=== PATIENT | male | born 1945 | race Caucasian/White ===

== ENCOUNTER 2020-04-10 07:41 | Day surgery (SDC) | payer MEDICARE, SELFPAY ==
[2020-04-06 12:31] VITALS: BMI 26.0
--- NOTE | 2020-04-08 09:16 | P.CONAN_ITS ---
Documented by User: Dee Fleming 04/08/20 09:18 HPI - Anesthesia Eval Consult details Narrative: 75yo M for Upper Endoscopy and Colonoscopy [facility] Past Medical History Medical History Barretts esophagus GERD (gastroesophageal reflux disease) History of ETOH abuse Hyperlipidemia Hypertension Surgical History Surgical History History of esophagogastroduodenoscopy (EGD) History of left inguinal hernia repair History of umbilical hernia repair History of vasectomy Hx of colonoscopy Social History Social History Smoking Status: Former smoker Use of substances other than those prescribed or required for medical reasons: No Advance Directives: No Advance Directives Information Provided: No Advance Directives on File: No Meds Allergies Allergy/AdvReac Type Severity Reaction Status Date / Time No Known Allergies Allergy Verified 04/10/20 07:49 Home Medications Medication Instructions Recorded Confirmed Type aspirin [Aspir-81] 81 mg PO DAILY 04/06/20 04/06/20 History cholecalciferol (vitamin D3) 25 mcg PO DAILY 04/06/20 04/06/20 History [Vitamin D3] garlic 1,000 mg PO DAILY 04/06/20 04/06/20 History lisinopril 1 tab PO DAILY 04/06/20 04/06/20 History eeiivolmqkmm-ayorsyim-jwklil 1 tab PO DAILY 04/06/20 04/06/20 History [Centrum Silver] omega 5-tfa-ote-fish oil [Fish Oil] 1 cap PO DAILY 04/06/20 04/06/20 History pravastatin 1 tab PO BEDTIME 04/06/20 04/06/20 History Exam Exam Date and Time: April 08, 2020 0916 Height,Weight and Vital Signs: Height 5 ft 8.5 in Weight 78.925 kg Pertinent Lab Results Pertinent Lab Results: Laboratory Tests 05/13/19 11/20/19 06:06 12:02 WBC 6.2 Hgb 14.7 Hct 44.1 Plt Count 198 Sodium 139 Potassium 4.5 Chloride 105 BUN 21 H Creatinine 1.39 Assessment and Plan Assessment Anesthesia Assessment: Chart Reviewed Documented by User: Tracy Meier 04/10/20 08:43 [facility] Past Medical History Medical History Barretts esophagus GERD (gastroesophageal reflux disease) History of ETOH abuse Hyperlipidemia Hypertension Family History Family history of problems with anesthesia: No Surgical History Surgical History History of esophagogastroduodenoscopy (EGD) History of left inguinal hernia repair History of umbilical hernia repair History of vasectomy Hx of colonoscopy History of Problems with Anesthesia: No Social History Social History Smoking Status: Former smoker Use of substances other than those prescribed or required for medical reasons: No Advance Directives: No Advance Directives Information Provided: No Advance Directives on File: No Meds Allergies Allergy/AdvReac Type Severity Reaction Status Date / Time No Known Allergies Allergy Verified 04/10/20 07:49 Home Medications Medication Instructions Recorded Confirmed Type aspirin [Aspir-81] 81 mg PO DAILY 04/06/20 04/06/20 History cholecalciferol (vitamin D3) 25 mcg PO DAILY 04/06/20 04/06/20 History [Vitamin D3] garlic 1,000 mg PO DAILY 04/06/20 04/06/20 History lisinopril 1 tab PO DAILY 04/06/20 04/06/20 History ametaucencbx-idwelnds-zwdjch 1 tab PO DAILY 04/06/20 04/06/20 History [Centrum Silver] omega 0-gcb-daw-fish oil [Fish Oil] 1 cap PO DAILY 04/06/20 04/06/20 History pravastatin 1 tab PO BEDTIME 04/06/20 04/06/20 History Exam Height,Weight and Vital Signs: Vital Signs Temp Pulse Resp BP Pulse Ox 04/10/20 07:59 97.8 F 63 16 158/73 H 96 Airway Mallampati Class: II TM Dist: >3cm Neck ROM: Full Loose/Missing/Broken Teeth: Yes (Edentulous) Heart: Rr Lungs: CTAB. Diminished. Assessment and Plan Assessment Anesthesia Assessment: Anesthesia Plan Discussed and Chart Reviewed Final Anesthetic Review NPO: Yes ASA Class: II Final Preanesthetic Review: No Changes in Pt Med Stat, Meds/Allgs Chart Rev iewed, Consent Obtained/Reviewed and Anes Risks/Benef Reviewed Patient Risk: Low Procedure Risk: Low Anesthetic Plan Anesthetic Plan: MAC: Disposition: Standard PACU
[2020-04-10 07:59] VITALS: BP 158/73; PULSE 63; RESP 16; TEMP 36.6; O2SAT 96
[2020-04-10] MEDS: Lactated Ringers 1,000 ML 100 ML IVCONT (08:11)
[2020-04-10 09:36] VITALS: BP 134/63; PULSE 55; RESP 18; TEMP 36.2; O2SAT 97
--- NOTE | 2020-04-10 09:40 | PM.OP ---
Brief Operative Note Date of Service: 04/10/20 Pre-op diagnosis: Garner's esophagus, Screening Post-op diagnosis: other (Same, Hiatal hernia, Diverticulosis, Internal hemorrhoids) Procedure: EGD with biopsies, Colonoscopy to the cecum Surgeon: Deandre Sanchez Anesthesia: MAC Estimated blood loss (mL): 2.0 Pathology: other (A. EG Junction at 34cm) Condition: stable Disposition: PACU
[2020-04-10 09:51] VITALS: BP 132/63; PULSE 62; RESP 18; O2SAT 97
--- NOTE | 2020-04-10 10:59 | OP_ITS ---
SURGEON: Deandre Sanchez MD INDICATIONS: The patient presents for evaluation of gastroesophageal reflux, Garner's esophagus, personal history of tubular adenoma of the colon, and colorectal cancer screening. Full consent obtained from him for both procedures, including risks of bleeding and perforation. PREOPERATIVE DIAGNOSIS: Gastroesophageal reflux, Garner's esophagus, personal history of tubular adenoma of the colon, and colorectal cancer screening. POSTOPERATIVE DIAGNOSIS: Gastroesophageal reflux, Garner's esophagus, personal history of tubular adenoma of the colon, and colorectal cancer screening, hiatal hernia, diverticulosis, nonbleeding cecal angiodysplasia, and internal hemorrhoids. PROCEDURE PERFORMED: Esophagogastroduodenoscopy with biopsies, and colonoscopy to the cecum. ESTIMATED BLOOD LOSS: COMPLICATIONS: ANESTHESIA: Monitored anesthesia care. ASSISTANTS: SPECIMENS: DESCRIPTION OF PROCEDURE: The patient was placed in the left lateral decubitus position. The Olympus video gastroscope was passed into the posterior oropharynx and upper esophagus under direct vision. The scope was passed slowly into the distal esophagus. The gastroesophageal junction appeared at 34 cm. At this level were small, less than 1 cm, areas of probable Garner's mucosa. There was no esophagitis nor any lesions. The scope entered into the stomach. There was a small to moderate-sized hiatal hernia. The scope was advanced to pylorus and duodenum cannulated to the descending portion. The duodenum including the bulb appeared normal without mass or ulceration. The scope was withdrawn back in the stomach. The gastric antrum and body appeared normal with good peristalsis. The scope was retroflexed visualizing the proximal stomach carefully, which appeared normal, without any sign of mass or ulceration. The scope was straightened and withdrawn back into the esophagus. Biopsies were obtained at 34 cm at the EG junction from the areas of presumed Garner's mucosa. Proximal to this, the esophageal mucosa appeared normal. The scope was withdrawn from the patient. He was turned around for colonoscopy. The digital rectal exam revealed no abnormalities. The Olympus video pediatric colonoscope was entered into the rectum, advanced to the cecum with the assistance of abdominal wall pressure. Once in the cecum, I did identify normal-appearing cecal pouch other than a small less than 5 mm nonbleeding angiodysplasia. The remainder of the cecum and ileocecal valve appeared normal. The scope was slowly withdrawn assessing all mucosal surfaces carefully. Preparation was excellent. I did not visualize any sign of polyps, other angiodysplasias, nor colitis. There was a moderate amount of sigmoid diverticulosis. In the rectum, scope was retroflexed visualizing small internal hemorrhoids, but no other pathology. The rectal mucosa appeared normal. The scope was straightened and withdrawn from the patient. He tolerated the procedure well and was returned to recovery area in stable condition. IMPRESSION: 1. Hiatal hernia, gastroesophageal reflux, history of Garner's esophagus. 2. Diverticulosis. 3. Internal hemorrhoids 4. Nonbleeding cecal angiodysplasia.. PLAN: The results of the biopsies will be checked. Assuming there is no dysplasia within the Garner's mucosa, I would then think he would not need any further upper endoscopies for surveillance given his age of 75. I also do not think he will need any further screening colonoscopies either given the negative exam and his age. He will continue his omeprazole. He will see me on a p.r.n. basis. MD ALEC Rodriguez/TEO / [id number] MTDD
== END 2020-04-10 10:59 | disposition home or self-care (01) ==
PROVIDERS: PCP Internal Medicine; Visit Provider Internal Medicine
PROC: (CPT 43239; principal; 2020-04-10 08:30)
DX: Z12.11 Encounter for screening for malignant neoplasm of colon (principal); Z86.010 Personal history of colon polyps; K57.30 Diverticulosis of large intestine without perforation or abscess without bleeding; K64.8 Other hemorrhoids; K55.20 Angiodysplasia of colon without hemorrhage; K22.70 Barrett's esophagus without dysplasia; K44.9 Diaphragmatic hernia without obstruction or gangrene; K21.9 Gastro-esophageal reflux disease without esophagitis; I10 Essential (primary) hypertension; Z79.82 Long term (current) use of aspirin; Z79.899 Other long term (current) drug therapy; Z87.891 Personal history of nicotine dependence
CPT/HCPCS: 43239; G0105; 88305

== ENCOUNTER 2020-05-22 06:01 | Outpatient (REF) | payer MEDICARE, SELFPAY ==
[2020-05-22 11:10] LABS: MANUAL DIFF FLAG NO
[2020-05-22 11:19] LABS: Basophils Percent Auto 0.6 % (0-2); Eosinophils Absolute Auto 0.3 X10*3/uL (0.0-0.4); Eosinophils Percent Auto 3.7 % (0-4); Hematocrit 46.8 % (42-52); Hemoglobin 14.9 g/dl (14.0-18.0); Imm Gran Abs Auto 0.02 X10*3/uL (0.00-0.03); Imm Gran Pct Auto 0.3 % (0.0-0.4); Lymphocytes Absolute Auto 2.3 X10*3/uL (1.2-4.9); Lymphocytes Percent Auto 34.5 % (20-40); Mean Corpuscular HGB Conc 31.8 g/dl (31.0-36.0); Mean Corpuscular Hemoglobin 30.4 pg (27.0-33.0); Mean Corpuscular Volume 95.5 fL (80-98); Mean Platelet Volume 11.2 fL (9.4-12.4); Monocytes Absolute Auto 0.5 X10*3/uL (0.1-1.2); Neutrophils Absolute Auto 3.6 X10*3/uL (2.0-8.3); Neutrophils Percent Auto 53.9 % (45-73); Platelet Count 235 X10*3/uL (160-400); Red Cell Distribution Width 12.5 % (11.0-16.0); White Blood Count 6.7 X10*3/uL (4.8-10.8)
[2020-05-22 11:59] LABS: Alanine Aminotransferase 26 U/L (0-40); Albumin Level 4.4 g/dL (3.5-5.0); Alkaline Phosphatase 68 U/L (39-117); Anion Gap 14 (12-20); Aspartate Amino Transferase 20 U/L (5-37); Bilirubin Total 0.8 mg/dL (0.0-1.0); Blood Urea Nitrogen 22 mg/dL (9-16); Calcium 9.3 mg/dL (8.4-10.2); Carbon Dioxide 28 mmol/L (22-29); Chloride 102 mmol/L (96-108); Cholesterol 185 mg/dL; Estimated Glomerular Filt Rate 51; Glucose Fasting 98 mg/dL (60-99); HDL Cholesterol 48 mg/dL; LDL Cholesterol Calculated 118 mg/dl; Potassium 4.9 mmol/L (3.3-5.1); Sodium 139 mmol/L (135-145); Total Protein 7.1 g/dL (6.5-8.0); Triglycerides 99 mg/dL
[2020-05-22 12:02] LABS: Thyroid Stimulating Hormone 2.36 uIU/mL (0.32-4.0)
[2020-05-22 12:17] LABS: Folate 18.8 ng/mL (> or = 4.0); Vitamin B12 546 pg/mL (200-900)
[2020-05-22 12:52] LABS: T4 Thyroxine 6.1 ug/dL (4.5-12.0)
== END 2020-05-22 06:02 | disposition home or self-care (01) ==
LOC: HO.HMGCLDS 06:01
PROVIDERS: PCP Internal Medicine; Visit Provider Internal Medicine
DX: Z00.00 Encounter for general adult medical examination without abnormal findings (principal); I10 Essential (primary) hypertension; E78.00 Pure hypercholesterolemia, unspecified; K21.9 Gastro-esophageal reflux disease without esophagitis; N52.9 Male erectile dysfunction, unspecified; L30.9 Dermatitis, unspecified; B07.8 Other viral warts
CPT/HCPCS: 36415; 80053; 80061; 82607; 82746; 84436; 84443; 85025

== ENCOUNTER 2021-02-26 16:31 | Outpatient (REF) | payer MEDICARE, SELFPAY ==
[2021-02-26 17:19] LABS: Influenza A PCR NEGATIVE (Negative); Influenza B PCR NEGATIVE (Negative); Resp Syncy Virus RNA Qual PCR NEGATIVE (Negative); SARS COV2 PCR INHOUSE NEGATIVE (Negative)
== END 2021-02-26 16:32 | disposition home or self-care (01) ==
LOC: HO.LNP 16:31
PROVIDERS: Visit Provider Physician Assistant Medical
DX: J06.9 Acute upper respiratory infection, unspecified (principal); Z20.822 Contact with and (suspected) exposure to COVID-19
CPT/HCPCS: 0241U

== ENCOUNTER 2021-05-04 09:33 | Outpatient (REF) | payer MEDICARE, SELFPAY ==
--- NOTE | ~2021-05-04 | US_ITS ---
EXAMINATION: US EXTRACRANIAL CAROTID DUPLEX, BILATERAL CLINICAL INFORMATION: Peripheral vascular disease. COMPARISON: None. TECHNIQUE: Real-time ultrasound and Doppler techniques (integrating B-mode 2-D vascular images, Doppler spectral analysis and color-flow Doppler imaging) were utilized to interrogate the extracranial carotid arteries, the vertebral arteries and proximal subclavian arteries bilaterally. The degree of stenosis is determined by criteria similar to NASCET. FINDINGS: Right Side: 1. There is calcified atherosclerotic plaque seen in the bifurcation/proximal ICA region. 2. The common carotid artery PSV proximally is 85 cm/s and distally 65 cm/s. 3. The proximal internal carotid artery velocities are 130 cm/s systolic and 17 cm/s diastolic. 4. The proximal external carotid artery PSV is 132 cm/s. 5. The vertebral artery shows antegrade flow. 6. The subclavian artery waveforms are normal. Left Side: 1. There is mixed calcified and noncalcified atherosclerotic plaque seen in the bifurcation/proximal ICA region. 2. The common carotid artery PSV proximally is 76 cm/s and distally 61 cm/s. 3. The proximal internal carotid artery velocities are 152 cm/s systolic and 41 cm/s diastolic. 4. The proximal external carotid artery PSV is 161 cm/s. 5. The vertebral artery shows antegrade flow. 6. The subclavian artery waveforms are normal. US/US carotid duplex BI IMPRESSION: 1. RIGHT: Calcified plaque. 50-79% right ICA stenosis. 2. LEFT: Calcified and noncalcified plaque. 50-79% left ICA stenosis.
== END 2021-05-04 09:34 | disposition home or self-care (01) ==
LOC: HO.US 09:33
PROVIDERS: PCP Internal Medicine; Visit Provider Internal Medicine
DX: I73.9 Peripheral vascular disease, unspecified (principal); I65.23 Occlusion and stenosis of bilateral carotid arteries
CPT/HCPCS: 93880

== ENCOUNTER 2021-05-29 10:24 | Outpatient (REF) | payer MEDICARE, SELFPAY ==
--- NOTE | ~2021-05-29 | XR_ITS ---
EXAMINATION: XR CHEST CLINICAL INFORMATION: Cough COMPARISON: None TECHNIQUE: 2 views of the chest were obtained. FINDINGS: Normal symmetric lung volumes. No parenchymal consolidation. No pleural effusion. No pneumothorax. Cardiomediastinal silhouette and pulmonary vascularity are within normal limits. No acute osseous abnormalities. XR/XR chest 2V IMPRESSION: No acute findings
== END 2021-05-29 10:25 | disposition home or self-care (01) ==
LOC: HO.HMGCX 10:24
PROVIDERS: PCP Internal Medicine; Visit Provider Physician Assistant Medical
DX: R05.9 Cough, unspecified (principal)
CPT/HCPCS: 71046

== ENCOUNTER 2021-08-14 06:34 | Outpatient (REF) | payer MEDICARE, SELFPAY ==
[2021-08-14 11:07] LABS: MANUAL DIFF FLAG NO
[2021-08-14 11:17] LABS: Basophils Percent Auto 0.4 % (0-2); Eosinophils Absolute Auto 0.4 X10*3/uL (0.0-0.4); Eosinophils Percent Auto 7.3 % (0-4); Hematocrit 44.4 % (42.0-52.0); Hemoglobin 14.4 g/dl (14.0-18.0); Imm Gran Abs Auto 0.01 X10*3/uL (0.00-0.03); Imm Gran Pct Auto 0.2 % (0.0-0.4); Lymphocytes Absolute Auto 1.8 X10*3/uL (1.2-4.9); Lymphocytes Percent Auto 32.7 % (20-40); Mean Corpuscular HGB Conc 32.4 g/dl (31.0-36.0); Mean Corpuscular Hemoglobin 30.6 pg (27.0-33.0); Mean Corpuscular Volume 94.3 fL (80.0-98.0); Mean Platelet Volume 10.8 fL (9.4-12.4); Monocytes Absolute Auto 0.7 X10*3/uL (0.1-1.2); Monocytes Percent Auto 12.5 % (2-11); Neutrophils Absolute Auto 2.6 x10*3/uL (2.0-8.3); Neutrophils Percent Auto 46.9 % (45-73); Platelet Count 237 X10*3/uL (160-400); Red Blood Count 4.71 X10*6/uL (4.60-5.80); Red Cell Distribution Width 12.5 % (11.0-16.0); White Blood Count 5.5 X10*3/uL (4.8-10.8)
[2021-08-14 11:31] LABS: Alanine Aminotransferase 28 U/L (0-40); Albumin Level 4.1 g/dL (3.5-5.0); Alkaline Phosphatase 76 U/L (39-117); Anion Gap 12 (12-20); Aspartate Amino Transferase 23 U/L (5-37); Bilirubin Total 0.9 mg/dL (0.0-1.0); Blood Urea Nitrogen 20 mg/dL (9-16); Calcium 9.2 mg/dL (8.4-10.2); Carbon Dioxide 27 mmol/L (22-29); Chloride 101 mmol/L (96-108); Cholesterol 153 mg/dL; Estimated Glomerular Filt Rate 50; Glucose Random 95 mg/dL (60-115); HDL Cholesterol 40 mg/dL; LDL Cholesterol Calculated 97 mg/dl; Potassium 5.1 mmol/L (3.3-5.1); Sodium 135 mmol/L (135-145); Total Protein 6.7 g/dL (6.5-8.0); Triglycerides 83 mg/dL
[2021-08-14 11:52] LABS: Free T4 (Free Thyroxine) 0.86 ng/dL (0.71-1.85); Thyroid Stimulating Hormone 1.46 uIU/mL (0.32-4.0)
[2021-08-16 09:09] LABS: Folate 18.7 ng/mL (> or = 4.0); Vitamin B12 555 pg/mL (200-900)
== END 2021-08-14 06:35 | disposition home or self-care (01) ==
LOC: HO.HMGCLDS 06:34
PROVIDERS: Visit Provider Internal Medicine
DX: E78.00 Pure hypercholesterolemia, unspecified (principal); K22.70 Barrett's esophagus without dysplasia; I10 Essential (primary) hypertension
CPT/HCPCS: 36415; 80053; 80061; 82607; 82746; 84439; 84443; 85025

== ENCOUNTER 2021-08-25 13:44 | Outpatient (REF) | payer MEDICARE, SELFPAY ==
--- NOTE | 2021-08-25 14:00 | PFT_ITS ---
FLOWS: FEV1 68% of predicted at 2.02 L. FVC 80% of predicted at 3.33 L. FEV1 to FVC ratio of 0.60. No bronchodilator response except in small to medium airways. LUNG VOLUMES: The patient was not able to successfully perform lung volume maneuver despite several attempts. Diffusion capacity is moderately decreased, diffusion capacity adjust to being mildly decreased after correction for alveolar ventilation. IMPRESSION: Moderate obstructive ventilatory defect with no bronchodilator response except in small to medium airways. The patient was unable to perform lung volume maneuvers. Decreased diffusion capacity suggests emphysema. Jose Eduardo Rose MD AP/MODL / [id number]
== END 2021-08-25 13:45 | disposition home or self-care (01) ==
LOC: HO.RESP 13:44
PROVIDERS: PCP Internal Medicine; Visit Provider Internal Medicine
DX: R06.00 Dyspnea, unspecified (principal)
CPT/HCPCS: 94060; 94729

== ENCOUNTER → 2021-12-07 15:51 | Outpatient (BNVA) | payer MEDICARE, SELFPAY | PROVIDERS: PCP Internal Medicine; Visit Provider Internal Medicine | DX: J44.9 Chronic obstructive pulmonary disease, unspecified (principal); U07.1 COVID-19; Z87.891 Personal history of nicotine dependence | CPT/HCPCS: 99202 ==

== ENCOUNTER → 2022-01-19 09:22 | Outpatient (BNVA) | payer MEDICARE, SELFPAY | PROVIDERS: PCP Internal Medicine; Visit Provider Internal Medicine | DX: J44.9 Chronic obstructive pulmonary disease, unspecified (principal); Z87.891 Personal history of nicotine dependence | CPT/HCPCS: 99212 ==

== ENCOUNTER → 2022-07-25 09:17 | Outpatient (BNVA) | payer MEDICARE, SELFPAY | PROVIDERS: PCP Internal Medicine; Visit Provider Internal Medicine | DX: J44.9 Chronic obstructive pulmonary disease, unspecified (principal); Z87.891 Personal history of nicotine dependence | CPT/HCPCS: 99212 ==

== ENCOUNTER 2022-08-20 06:34 | Outpatient (REF) | payer MEDICARE, SELFPAY ==
[2022-08-20 11:07] LABS: MANUAL DIFF FLAG NO
[2022-08-20 11:11] LABS: Basophils Absolute Auto 0.1 X10*3/uL (0.0-0.2); Basophils Percent Auto 0.8 % (0-2); Eosinophils Absolute Auto 0.3 X10*3/uL (0.0-0.4); Eosinophils Percent Auto 4.2 % (0-4); Hematocrit 45.8 % (42.0-52.0); Hemoglobin 14.7 g/dl (14.0-18.0); Imm Gran Abs Auto 0.02 X10*3/uL (0.00-0.03); Imm Gran Pct Auto 0.3 % (0.0-0.4); Lymphocytes Absolute Auto 2.1 X10*3/uL (1.2-4.9); Lymphocytes Percent Auto 33.2 % (20-40); Mean Corpuscular HGB Conc 32.1 g/dl (31.0-36.0); Mean Corpuscular Hemoglobin 30.4 pg (27.0-33.0); Mean Corpuscular Volume 94.6 fL (80.0-98.0); Mean Platelet Volume 11.1 fL (9.4-12.4); Monocytes Absolute Auto 0.5 X10*3/uL (0.1-1.2); Monocytes Percent Auto 7.5 % (2-11); Neutrophils Absolute Auto 3.5 x10*3/uL (2.0-8.3); Platelet Count 232 X10*3/uL (160-400); Red Blood Count 4.84 X10*6/uL (4.60-5.80); Red Cell Distribution Width 12.7 % (11.0-16.0); White Blood Count 6.4 X10*3/uL (4.8-10.8)
[2022-08-20 11:50] LABS: Alanine Aminotransferase 25 U/L (0-40); Albumin Level 4.1 g/dL (3.5-5.0); Alkaline Phosphatase 66 U/L (39-117); Anion Gap 11 (12-20); Aspartate Amino Transferase 22 U/L (5-37); Bilirubin Total 1.1 mg/dL (0.0-1.0); Blood Urea Nitrogen 21 mg/dL (9-16); Calcium 9.3 mg/dL (8.4-10.2); Carbon Dioxide 29 mmol/L (22-29); Chloride 106 mmol/L (96-108); Cholesterol 153 mg/dL; Estimated Glomerular Filt Rate 47; Glucose Random 83 mg/dL (60-115); HDL Cholesterol 42 mg/dL; LDL Cholesterol Calculated 94 mg/dl; Sodium 141 mmol/L (135-145); Total Protein 6.6 g/dL (6.5-8.0); Triglycerides 89 mg/dL
[2022-08-20 12:10] LABS: Folate 17.9 ng/mL (> or = 4.0); Free T4 (Free Thyroxine) 0.99 ng/dL (0.71-1.85); Thyroid Stimulating Hormone 1.73 uIU/mL (0.32-4.0); Vitamin B12 573 pg/mL (200-900)
== END 2022-08-20 06:35 | disposition home or self-care (01) ==
LOC: HO.HMGCLDS 06:34
PROVIDERS: PCP Internal Medicine; Visit Provider Internal Medicine
DX: K21.9 Gastro-esophageal reflux disease without esophagitis (principal); E78.00 Pure hypercholesterolemia, unspecified; E78.5 Hyperlipidemia, unspecified
CPT/HCPCS: 36415; 80053; 80061; 82607; 82746; 84439; 84443; 85025

== ENCOUNTER 2022-09-28 09:13 | Outpatient (REF) | payer OTHER, SELFPAY ==
[2022-09-28 11:33] LABS: Anion Gap 7 (12-20); Blood Urea Nitrogen 17 mg/dL (9-16); Calcium 9.5 mg/dL (8.4-10.2); Carbon Dioxide 29 mmol/L (22-29); Chloride 103 mmol/L (96-108); Estimated Glomerular Filt Rate 54; Glucose Random 90 mg/dL (60-115); Potassium 4.4 mmol/L (3.3-5.1); Sodium 135 mmol/L (135-145)
== END 2022-09-28 09:14 | disposition home or self-care (01) ==
LOC: HO.HMGCLDS 09:13
PROVIDERS: PCP Internal Medicine; Visit Provider Internal Medicine
DX: N18.31 Chronic kidney disease, stage 3a (principal)
CPT/HCPCS: 36415; 80048

== ENCOUNTER 2023-01-23 09:11 | Outpatient (AMB) | payer MEDICARE, SELFPAY ==
[2023-01-23 09:19] VITALS: BP 140/64; PULSE 65; O2SAT 96
--- NOTE | 2023-01-23 09:19 | A.OFFVIS_ITS ---
Intake Vital Signs 01/23/23 09:19 BP 140/64 H Blood Pressure Location Lt brachial Position Sitting Pulse 65 Pulse Source Pulse Oximeter Pulse Oximetry (%) 96 Oxygen Delivery Method Room Air Intake Visit Reasons: COPD Allergies No Known Allergies Allergy (Verified 01/23/23 09:28) Medication List - Last Reconciled 01/23/23 by Jody Wade MD albuterol sulfate 90 mcg/actuation (ProAir HFA) 2 puffs inhalation Q6H PRN aspirin 81 mg PO DAILY cholecalciferol (vitamin D3) (Vitamin D3) 25 mcg PO DAILY clotrimazole 1% 1 appl topical BID 4 weeks fluticasone propion-salmeterol 113-14 mcg/actuation (AirDuo RespiClick) 1 inh inhalation BID garlic 1,000 mg PO DAILY lisinopril 20 mg PO DAILY wxcabjgyrtev-xvwqxnqp-ayhzag 1 tab PO DAILY omega 1-htr-bor-fish oil 1,200 (144-216) mg (Fish Oil) 1 cap PO DAILY omeprazole 20 mg PO DAILY pravastatin 10 mg PO BEDTIME sildenafil 50 mg PO DAILY PRN triamcinolone acetonide 0.5% 1 appl topical BID Do you need a note to return to daycare/school/sports/work: No HPI COPD HPI Details This 78 years old gentleman, is here for 6 months follow-up for his COPD. He is still actively working at [employer]. Has been feeling good. And without any upper respiratory infections Breathing has remained very stable as long as he uses his inhaler Air Duo twice a day. He has not needed to use the rescue inhaler much. Nasal congestion off and on is also under control. [facility] Medical History COPD (chronic obstructive pulmonary disease) History of smoking at least 1 pack per day for at least 30 years COPD (chronic obstructive pulmonary disease) Wheezing Acute bronchitis GERD (gastroesophageal reflux disease) Erectile dysfunction History of ETOH abuse Barretts esophagus Hyperlipidemia Hypertension Surgical History History of cranial surgery History of appendectomy History of tonsillectomy History of umbilical hernia repair History of vasectomy History of left inguinal hernia repair History of esophagogastroduodenoscopy (EGD) Hx of colonoscopy Family History Father No problems noted. Mother Cancer Social History Housing: House Alcohol intake: current Alcohol intake frequency: a few times a month Alcohol type: beer Patient Tobacco Use Status: Former Tobacco user Tobacco use type: Cigarette Years Smoked: [id number] e-Cigarette/Vaping Use: Never Used Second Hand Smoke Exposure: No Current occupational status: retired Cognitive needs: No Hearing needs: No Vision needs: Yes (glasses) Review of Systems Const All systems reviewed & are unremarkable except as noted in HPI and below Eyes Reports no additional complaints ENT Reports no additional complaints Card Denies chest pain, Denies irregular heart rhythm and Denies leg edema Resp Reports as per HPI GI Reports heartburn (Controlled with medication) Reports no additional complaints Musc Reports no additional complaints Skin/Breast Reports system reviewed and no additional complaints, except as documented Neuro Reports no additional complaints Psych Reports no additional complaints Physical Exam Vital Signs: Last Vital Signs Pulse 65 01/23/23 09:19 BP 140/64 H 01/23/23 09:19 Pulse Ox 96 01/23/23 09:19 Oxygen Delivery Method Room Air 01/23/23 09:19 Const General: healthy appearing, comfortable, no acute distress, alert and awake Orientation/consciousness: patient oriented x3 HEENT Head: Yes normal to inspection General nose exam: No nasal polyps present and No nasal discharge present Face and sinus: Yes sinuses nontender Mouth: oropharynx normal Throat: Yes posterior oropharynx normal Eyes General: appearance normal, both eyes and all related structures Neck Neck: Yes normal visual inspection, Yes no lymphadenopathy, Yes trachea midline and Yes no JVD Thyroid: Thyroid normal Chest Chest palpation & inspection: normal inspection of the chest, normal palpation of entire chest wall and no tenderness Resp Other: Percussion note resonant, has good breath sounds on both sides, slightly distant with prolonged expiratory phase. No wheezes rhonchi or crepitations are heard. Cardio Palpation: normal PMI Rate: regular rate Rhythm: regular rhythm Heart sounds: no gallops and no murmurs Peripheral pulses: Peripheral pulses 2+ throughout GI Palpation (GI): Soft to palpation, nontender, No hepatosplenomegaly present and no masses Auscultation: normal bowel sounds Back/Spine/Pelvis Thoracic/Lumbar Spine: thoracic and lumbar spine normal to inspection Skin General skin exam: no rashes or lesions noted Neuro General: patient oriented x3 and no focal motor deficits Cranial nerves: Yes CN's II-XII intact bilaterally Extrem General: Yes normal to inspection, Yes no clubbing, cyanosis or edema and Yes no calf tenderness Psych Appearance: grossly normal and well kempt Speech and movement: Normal speech and movement present Assessment & Plan Assessment & Plan (1) COPD (chronic obstructive pulmonary disease): Comment: As per Pulmonary function test he has Moderately severe obstructive airway disorder. Remains well controlled and stable with AirDuo, 113-14 1 inhalation b.i.d., Use ProAir HFA only p.r.n.. RV q 6 months Code(s): J44.9 - Chronic obstructive pulmonary disease, unspecified (2) History of smoking at least 1 pack per day for at least 30 years: Comment: He smoked for 40 years, almost 2 packs a day. But quit 20 years ago Code(s): Z87.891 - Personal history of nicotine dependence Coding Level of Care Code Est Pt Level 3 (04493) Diagnoses COPD (chronic obstructive pulmonary disease) J44.9 History of smoking at least 1 pack per day for at least 30 years Z87.891
== END 2023-01-23 09:46 | disposition home or self-care (01) ==
PROVIDERS: PCP Internal Medicine; Visit Provider Internal Medicine
DX: J44.9 Chronic obstructive pulmonary disease, unspecified (principal); Z87.891 Personal history of nicotine dependence
CPT/HCPCS: 99213

== ENCOUNTER → 2023-01-23 09:11 | Outpatient (BNVA) | payer MEDICARE, SELFPAY | PROVIDERS: Visit Provider Internal Medicine | DX: J44.9 Chronic obstructive pulmonary disease, unspecified (principal); Z87.891 Personal history of nicotine dependence | CPT/HCPCS: 99212 ==

== ENCOUNTER 2023-01-24 09:22 | Outpatient (AMB) | payer MEDICARE, SELFPAY ==
--- NOTE | 2023-01-24 09:32 | AM.OFFVISNUR ---
Intake Intake Visit Reasons: Flu vaccine Allergies No Known Allergies Allergy (Verified 01/23/23 09:28) Office Procedures Flu Questionnaire Does the patient have a severe egg allergy?: No Does the patient have severe life threatening allergies?: No Does the patient have a fever or illness today?: No Has the patient ever had Guillain-Wadsworth Syndrome?: No Has the patient ever had any past reaction to a flu shot?: No Immunizations flu vacc [id number] 6mos up(PF) 60 mcg(15 mcgx4)/0.5 mL IM syringe Performing Provider: Yo Waggoner MD Performing Location: [facility] Administered by: Ewa Wheeler RN on 01/24/23 09:32 Dose Route Admin Location Dispensed Lot Number Expiration Date [employer] 0.5 mL IM Left Deltoid 0.5 mL [id number] 10/01/23 52594-947-46 [employer] VIS Given Date VIS Provided VIS Publication Date 01/24/23 Single Vaccine 20 Eligibility Eligibility Date Funding Source Not [facility] Eligible 01/24/23 Private Coding Assessment & Plan Assessment & Plan Orders: Orders Influenza [id number] Immunization Today Z23 - Encounter for immunization
== END 2023-01-24 09:34 | disposition home or self-care (01) ==
PROVIDERS: PCP Internal Medicine; Visit Provider Internal Medicine
DX: Z23 Encounter for immunization (principal)
CPT/HCPCS: 90471; 90686

== ENCOUNTER 2023-03-20 09:39 | Outpatient (AMB) | payer MEDICARE, SELFPAY ==
--- NOTE | 2023-03-20 09:40 | MHC.PC.OV ---
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 Required: No Allergies No Known Allergies Allergy (Verified 03/20/23 09:42) Medication List - Last Reconciled 03/20/23 by Yo Waggoner MD albuterol sulfate 90 mcg/actuation (ProAir HFA) 2 puffs inhalation Q6H PRN aspirin 81 mg PO DAILY cholecalciferol (vitamin D3) (Vitamin D3) 25 mcg PO DAILY clotrimazole 1% 1 appl topical BID 4 weeks fluticasone propion-salmeterol 113-14 mcg/actuation 1 inh PO BID garlic 1,000 mg PO DAILY lisinopril 20 mg PO DAILY fbjlumfhutqj-bfrphemq-yxetco 1 tab PO DAILY omega 4-avw-okc-fish oil 1,200 (144-216) mg (Fish Oil) 1 cap PO DAILY omeprazole 20 mg PO DAILY pravastatin 10 mg PO BEDTIME sildenafil 50 mg PO DAILY PRN triamcinolone acetonide 0.5% 1 appl topical BID Tobacco use date assessed: 03/20/23 Fall risk assessment: No Falls in past year Last assessed Fall Risk: 03/20/23 Dental Screening Dental Screen Date: 03/20/23 Did you have a dental visit in the last 12 months?: No Did you have a dental problem in the last 6 months where you did not have access to dental care?: No HPI PE HPI Details 78-year-old overweight male with a history of COPD chronic kidney disease Garner's esophagus hypertension hypercholesterolemia and erectile dysfunction last seen in September 2022. Patient is here for physical exam. Colonoscopy no more, patient did see the pulmonary and January 2023 uses AirDuo twice a day and has not needed the rescue inhaler much. nausea after eating ham and dizziness. 3 days ago light headed today. lightheaded no palpitations PFSH Medical History COPD (chronic obstructive pulmonary disease) History of smoking at least 1 pack per day for at least 30 years COPD (chronic obstructive pulmonary disease) Wheezing Acute bronchitis GERD (gastroesophageal reflux disease) Erectile dysfunction History of ETOH abuse Barretts esophagus Hyperlipidemia Hypertension Surgical History History of cranial surgery History of appendectomy History of tonsillectomy History of umbilical hernia repair History of vasectomy History of left inguinal hernia repair History of esophagogastroduodenoscopy (EGD) Hx of colonoscopy Family History Father No problems noted. Mother Cancer Social History (Updated 03/20/23 @ 09:55 by Yo Waggoner MD) Housing: House Alcohol intake: current Alcohol intake frequency: a few times a month Alcohol type: beer Comment: once Q 6 months 1 beer Patient Tobacco Use Status: Former Tobacco user Tobacco use type: Cigarette Years Smoked: [id number] e-Cigarette/Vaping Use: Never Used Second Hand Smoke Exposure: No Current occupational status: retired Cognitive needs: No Hearing needs: No Vision needs: Yes (glasses) Questionnaire PHQ-9 Over the last 2 weeks, how often have you been bothered by any of the following problems? 1. Little interest or pleasure in doing things: not at all 2. Feeling down, depressed, or hopeless: not at all 3. Trouble falling or staying asleep, or sleeping too much: not at all 4. Feeling tired or having little energy: not at all 5. Poor appetite or overeating: not at all 6. Feeling bad about yourself - or that you are a failure or have let yourself or your family down: not at all 7. Trouble concentrating on things, such as reading the newspaper or watching television: not at all 8. Moving or speaking so slowly that other people could have noticed. Or the opposite - being so fidgety or restless that you have been moving around a lot more than usual: not at all 9. Thoughts that you would be better off or of hurting yourself in some way: not at all Total score: 0 Depression Screening Interpretation: Negative Depression Screening Done: Yes Source: Developed by Drs. Deandre Toth, Anabel He, Eligio Cruz and colleagues, with an educational lamonte from [employer] Thrive Questionnaire Date Thrive assessed: 03/20/23 I am a: Patient What is your living situation today?: I have a steady place to live Within the past 12 months, did the food you bought not last and you didn't have the money to get more?: Never true AUDIT C Alcohol Use Questionnaire (AUDIT-C) 1. How often do you have a drink containing alcohol?: Monthly or less Total Score: 1 CORINNE-7 AMB Questionnaire CORINNE-7 Date CORINNE - 7 assessed: 03/20/23 Feeling nervous, anxious, or on edge: 0 = Not at all Not being able to stop or control worryin = Not at all Worrying too much about different things: 0 = Not at all Trouble relaxin = Not at all Being so restless that it is hard to sit still: 0 = Not at all Becoming easily annoyed or irritable: 0 = Not at all Feeling afraid as if something awful might happen: 0 = Not at all Total CORINNE-7 score (0-4 normal; 5-9 mild; 10-14 moderate; 15-21 severe): 0 Source: Developed by Drs. Deandre Toth, Anabel He, Eligio Cruz and colleagues, with an educational lamonte from [employer]. Review of Systems Const Denies poor appetite and Denies weakness Eyes Denies no additional complaints ENT Reports Normal hearing present, Denies dizziness, Denies nasal congestion, Denies tinnitus and Denies sore throat Card Denies chest pain, Denies syncope, Denies rapid heart rate and Denies dyspnea Resp Denies cough and Denies dyspnea GI Denies change in stool character, Reports constipation, Denies diarrhea, Denies nausea and Denies vomiting Denies dysuria and Denies urinary frequency Neuro Reports Normal hearing present, Denies confusion, Denies dizziness, Denies syncope and Denies weakness Psych Denies confusion Physical exam (Primary Care) Vital Signs: Last Vital Signs Pulse 66 03/20/23 09:41 BP 160/86 H 03/20/23 09:41 Pulse Ox 96 03/20/23 09:41 Oxygen Delivery Method Room Air 03/20/23 09:41 BMI result Body Mass Index 27.3 Tobacco/Smoking Status: Tobacco use Status Tobacco use date assessed 03/20/23 03/20/23 09:46 Patient Tobacco Use Status Former Tobacco user 03/20/23 09:46 Tobacco use type Cigarette 03/20/23 09:46 e-Cigarette/Vaping Use Never Used 03/20/23 09:46 PHQ-9: PHQ-9 Score PHQ-9: Total score 0 03/20/23 09:46 Depression Screening Interpretation: Negative Thrive Assessment: Date of Thrive Assessment Date Thrive assessed 03/20/23 12 09:46 Const General: No confusion Orientation/consciousness: No confusion HENMT Head: Yes normocephalic Ears: external ears normal and TM's normal bilaterally Face and sinus: Yes normal facial exam Mouth: moist mucous membranes Throat: Yes tonsils normal Eyes Conjunctivae: conjunctivae normal Pupils: Equal, round and reactive pupils present and Pupil accommodation reflex normal Direct Ophthalmoscopy: normal light reflex Neck Neck: No lymphadenopathy Thyroid: Thyroid normal Chest Chest palpation & inspection: normal inspection of the chest Resp Effort & Inspection: normal respiratory effort and no audible wheezes Auscultation: clear to auscultation bilaterally, no crackles, no wheezes and lung sounds not diminished Cardio Rate: regular rate Rhythm: regular rhythm Peripheral pulses: radial pulses present and dorsalis pedis present GI Other: guaiac negative and prostates enlarged Palpation (GI): no masses Auscultation: normal bowel sounds and normoactive bowel sounds Male General Exam: Yes normal external exam Skin General skin exam: no rashes or lesions noted Rashes: no rashes Neuro General: No confusion Cranial nerves: Yes Equal, round and reactive pupils present and Yes Normal hearing present Cognition (Neuro): normal cognition Gait exam (Neuro): Normal gait present Motor exam (neuro): 5/5 motor strength present throughout Deep tendon reflexes (DTR's): Right brachioradialis reflex intensity grade: 2+, Left brachioradialis reflex intensity grade: 2+, Right patellar reflex intensity grade: 2+ and Left patellar reflex intensity grade: 2+ Extrem General: No edema Assessment and Plan Assessment & Plan (1) Annual physical exam: Code(s): Z00.00 - Encounter for general adult medical examination without abnormal findings (2) Hypertension: Code(s): I10 - Essential (primary) hypertension Qualifiers: Hypertension type: essential hypertension Qualified Code(s): I10 - Essential (primary) hypertension Plan: Continue with blood pressure medication. Decrease salt intake and exercise patient takes lisinopril 20 mg once a day (3) Hyperlipidemia: Code(s): E78.5 - Hyperlipidemia, unspecified Qualifiers: Hyperlipidemia type: pure hypercholesterolemia Qualified Code(s): E78.00 - Pure hypercholesterolemia, unspecified Plan: Avoid fried foods, chicken skin, eggs, butter margarine, pastries and meat. Be it pork or beef they have a lot of cholesterol LDL goal of less than 130 and triglyceride of less than 150. Patient on pravastatin 10 mg once a day August 2022 last blood work (4) Garner's esophagus: Code(s): K22.70 - 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 Qualifiers: Garner's esophagus type: without dysplasia Qualified Code(s): K22.70 - 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 Plan: Avoid the foods that causes that usually spicy foods, tomato products, juices, coffee, soda and foods that your sensitive to. After eating do not lie down, allow 3-4 hours before in lie down. And keep the head of bed above 30 degrees to avoid the acid from going up. (5) CKD (chronic kidney disease): Code(s): N18.9 - Chronic kidney disease, unspecified Qualifiers: Chronic kidney disease stage: stage 3 (moderate) Chronic kidney disease stage 3 subtype: stage 3a (GFR 45-59) Qualified Code(s): N18.31 - Chronic kidney disease, stage 3a Plan: Keep well hydrated avoid NSAIDs (6) COPD (chronic obstructive pulmonary disease): Comment: As per Pulmonary function test he has Moderately severe obstructive airway disorder. Remains well controlled and stable with AirDuo, 113-14 1 inhalation b.i.d., Use ProAir HFA only p.r.n.. RV q 6 months Code(s): J44.9 - Chronic obstructive pulmonary disease, unspecified Plan: Continue with the AirDuo and continue to follow-up with Pulmonary (7) Dizziness: Code(s): R42 - Dizziness and giddiness Orders: Orders Complete Blood Count Auto Diff Today R42 - Dizziness and giddiness Magnesium Today R42 - Dizziness and giddiness Phosphorus Today R42 - Dizziness and giddiness Comprehensive Met. Panel Today R42 - Dizziness and giddiness UA w Microscopic Today R42 - Dizziness and giddiness Medications: Refilled triamcinolone acetonide 0.5% 1 appl topical BID 15 grams 0RF R42 - Dizziness and giddiness Coding Level of Care Code Est Pt Prev Care >65y(64640) Diagnoses Annual physical exam Z00.00 Essential hypertension I10 Hypertension type: essential hypertension Pure hypercholesterolemia E78.00 Hyperlipidemia type: pure hypercholesterolemia 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 K22.70 Garner's esophagus type: without dysplasia Stage 3a chronic kidney disease N18.31 Chronic kidney disease stage: stage 3 (moderate) Chronic kidney disease stage 3 subtype: stage 3a (GFR 45-59) COPD (chronic obstructive pulmonary disease) J44.9 Dizziness R42
[2023-03-20 09:41] VITALS: BP 160/86; PULSE 66; O2SAT 96; BMI 27.3
[2023-03-20 09:52] VITALS: BP 160/80
== END 2023-03-20 10:11 | disposition home or self-care (01) ==
PROVIDERS: Visit Provider Internal Medicine
DX: Z00.00 Encounter for general adult medical examination without abnormal findings (principal); I12.9 Hypertensive chronic kidney disease with stage 1 through stage 4 chronic kidney disease, or unspecified chronic kidney disease; N18.31 Chronic kidney disease, stage 3a; J44.9 Chronic obstructive pulmonary disease, unspecified; E78.00 Pure hypercholesterolemia, unspecified; K22.70 Barrett's esophagus without dysplasia; R42 Dizziness and giddiness
CPT/HCPCS: 99397

== ENCOUNTER 2023-03-21 09:16 | Outpatient (REF) | payer MEDICARE, SELFPAY ==
[2023-03-21 11:26] LABS: MANUAL DIFF FLAG NO
[2023-03-21 11:33] LABS: Appearance Urine Clear; Basophils Absolute Auto 0.1 X10*3/uL (0.0-0.2); Basophils Percent Auto 0.8 % (0-2); Color Urine Dark Yellow; Eosinophils Absolute Auto 0.3 X10*3/uL (0.0-0.4); Eosinophils Percent Auto 4.1 % (0-4); Glucose Urine UA Negative (Negative); Hematocrit 45.5 % (42.0-52.0); Hemoglobin 14.7 g/dl (14.0-18.0); Imm Gran Abs Auto 0.02 X10*3/uL (0.00-0.03); Imm Gran Pct Auto 0.3 % (0.0-0.4); Leukocyte Esterase Urine Negative (Negative); Lymphocytes Absolute Auto 2.3 X10*3/uL (1.2-4.9); Lymphocytes Percent Auto 29.4 % (20-40); Mean Corpuscular HGB Conc 32.3 g/dl (31.0-36.0); Mean Corpuscular Hemoglobin 30.9 pg (27.0-33.0); Mean Corpuscular Volume 95.8 fL (80.0-98.0); Mean Platelet Volume 10.9 fL (9.4-12.4); Monocytes Absolute Auto 0.5 X10*3/uL (0.1-1.2); Monocytes Percent Auto 6.3 % (2-11); Neutrophils Absolute Auto 4.6 x10*3/uL (2.0-8.3); Neutrophils Percent Auto 59.1 % (45-73); Nitrite Urine Negative (Negative); PH 5.5 (5.0-9.0); Platelet Count 215 X10*3/uL (160-400); Red Blood Count 4.75 X10*6/uL (4.60-5.80); Red Cell Distribution Width 12.4 % (11.0-16.0); Urine Blood Negative (Negative); Urine Ketones Negative (Negative); Urine Protein Negative (Neg-Trace); White Blood Count 7.8 X10*3/uL (4.8-10.8)
[2023-03-21 11:36] LABS: Bacteria Urine None Seen (None Seen); Hyaline Casts Urine 0-2 /LPF (0-2); Squamous Epithelial Cell Urine 0-2 /HPF (0-2); WBC Urine 0-5 /HPF (0-5)
[2023-03-21 11:44] LABS: Alanine Aminotransferase 25 U/L (0-40); Albumin Level 3.9 g/dL (3.5-5.0); Alkaline Phosphatase 63 U/L (39-117); Anion Gap 11 (12-20); Aspartate Amino Transferase 22 U/L (5-37); Bilirubin Total 0.5 mg/dL (0.0-1.0); Blood Urea Nitrogen 19 mg/dL (9-16); Carbon Dioxide 26 mmol/L (22-29); Chloride 108 mmol/L (96-108); Estimated Glomerular Filt Rate 53; Glucose Random 137 mg/dL (60-115); Magnesium 1.9 mg/dL (1.6-2.6); Phosphorus 2.9 mg/dL (2.7-4.5); Potassium 4.4 mmol/L (3.3-5.1); Sodium 141 mmol/L (135-145); Total Protein 6.7 g/dL (6.5-8.0)
== END 2023-03-21 09:17 | disposition home or self-care (01) ==
LOC: HO.HMGCLDS 09:16
PROVIDERS: PCP Internal Medicine; Visit Provider Internal Medicine
DX: R42 Dizziness and giddiness (principal)
CPT/HCPCS: 36415; 80053; 81001; 83735; 84100; 85025

== ENCOUNTER 2023-04-05 13:44 | Outpatient (AMB) | payer MEDICARE, SELFPAY ==
--- NOTE | 2023-04-05 13:45 | MHC.PC.OV ---
Intake Visit Reasons: Cough, Congested Allergies No Known Allergies Allergy (Verified 04/05/23 13:45) Medication List - Last Reconciled 04/05/23 by Yo Waggoner MD albuterol sulfate 90 mcg/actuation (ProAir HFA) 2 puffs inhalation Q6H PRN aspirin 81 mg PO DAILY azithromycin (Zithromax) For 250 mg dose pack: take 500 mg today (day 1), then 250 mg for 4 days (days 2-5) PO cholecalciferol (vitamin D3) (Vitamin D3) 25 mcg PO DAILY clotrimazole 1% 1 appl topical BID 4 weeks fluticasone propion-salmeterol 113-14 mcg/actuation 1 inh PO BID garlic 1,000 mg PO DAILY hydrochlorothiazide 25 mg PO DAILY lisinopril 20 mg PO DAILY vwhasdacpywm-unsbxoim-wyqqwg 1 tab PO DAILY omega 5-jhe-dri-fish oil 1,200 (144-216) mg (Fish Oil) 1 cap PO DAILY omeprazole 20 mg PO DAILY pravastatin 10 mg PO BEDTIME sildenafil 50 mg PO DAILY PRN triamcinolone acetonide 0.5% 1 appl topical BID Tobacco use date assessed: 04/05/23 Fall risk assessment: No Falls in past year Last assessed Fall Risk: 04/05/23 Dental Screening Dental Screen Date: 04/05/23 Did you have a dental visit in the last 12 months?: No Did you have a dental problem in the last 6 months where you did not have access to dental care?: No Was dental information given to patient?: No HPI Cough, Congested HPI Details 78-year-old male with hypertension hypercholesterolemia Garner's esophagus COPD coming in for follow-up through Telehealth patient' has an acute problem. COPD on cough 2 days , no fevers, productive, covid negative, , nobody sick at home, , no sore throat, [facility] Medical History COPD (chronic obstructive pulmonary disease) History of smoking at least 1 pack per day for at least 30 years COPD (chronic obstructive pulmonary disease) Wheezing Acute bronchitis GERD (gastroesophageal reflux disease) Erectile dysfunction History of ETOH abuse Barretts esophagus Hyperlipidemia Hypertension Surgical History History of cranial surgery History of appendectomy History of tonsillectomy History of umbilical hernia repair History of vasectomy History of left inguinal hernia repair History of esophagogastroduodenoscopy (EGD) Hx of colonoscopy Family History Father No problems noted. Mother Cancer Social History (Updated 03/20/23 @ 09:55 by Yo Waggoner MD) Housing: House Alcohol intake: current Alcohol intake frequency: a few times a month Alcohol type: beer Comment: once Q 6 months 1 beer Patient Tobacco Use Status: Former Tobacco user Tobacco use type: Cigarette Years Smoked: [id number] e-Cigarette/Vaping Use: Never Used Second Hand Smoke Exposure: No Current occupational status: retired Cognitive needs: No Hearing needs: No Vision needs: Yes (glasses) Questionnaire PHQ-9 Over the last 2 weeks, how often have you been bothered by any of the following problems? 1. Little interest or pleasure in doing things: not at all 2. Feeling down, depressed, or hopeless: not at all 3. Trouble falling or staying asleep, or sleeping too much: not at all 4. Feeling tired or having little energy: not at all 5. Poor appetite or overeating: not at all 6. Feeling bad about yourself - or that you are a failure or have let yourself or your family down: not at all 7. Trouble concentrating on things, such as reading the newspaper or watching television: not at all 8. Moving or speaking so slowly that other people could have noticed. Or the opposite - being so fidgety or restless that you have been moving around a lot more than usual: not at all 9. Thoughts that you would be better off or of hurting yourself in some way: not at all Total score: 0 Depression Screening Interpretation: Negative Depression Screening Done: Yes Source: Developed by Drs. Deandre Toth, Anabel He, Eligio Cruz and colleagues, with an educational lamonte from [employer]. Thrive Questionnaire Date Thrive assessed: 04/05/23 I am a: Patient What is your living situation today?: I have a steady place to live Within the past 12 months, did the food you bought not last and you didn't have the money to get more?: Never true Within the past 12 months, did you worry whether your food would run out before you got money to buy more?: Never true Do you have trouble paying for medicines?: No Do you have trouble getting transportation to medical appointments?: No Do you have trouble paying your heating and electricity bill?: No Do you have trouble taking care of your child, family member or friend?: No Do you have trouble with day-to-day activities such as bathing, preparing meals, shopping, managing finances, etc.?: No Are you currently unemployed and looking for a job?: No Are you interested in more education?: No Currently or been in a relationship where the following occur: no concerns reported AUDIT C Alcohol Use Questionnaire (AUDIT-C) 1. How often do you have a drink containing alcohol?: Monthly or less Total Score: 1 CORINNE-7 AMB Questionnaire CORINNE-7 Date CORINNE - 7 assessed: 04/05/23 Feeling nervous, anxious, or on edge: 0 = Not at all Not being able to stop or control worryin = Not at all Worrying too much about different things: 0 = Not at all Trouble relaxin = Not at all Being so restless that it is hard to sit still: 0 = Not at all Becoming easily annoyed or irritable: 0 = Not at all Feeling afraid as if something awful might happen: 0 = Not at all Total CORINNE-7 score (0-4 normal; 5-9 mild; 10-14 moderate; 15-21 severe): 0 Source: Developed by Drs. Deandre Toth, Anabel He, Eligio Cruz and colleagues, with an educational lamonte from [employer]. Physical exam (Primary Care) Tobacco/Smoking Status: Tobacco use Status Tobacco use date assessed 04/05/23 04/05/23 13:47 Patient Tobacco Use Status Former Tobacco user 04/05/23 13:47 Tobacco use type Cigarette 04/05/23 13:47 e-Cigarette/Vaping Use Never Used 04/05/23 13:47 PHQ-9: PHQ-9 Score PHQ-9: Total score 0 04/05/23 13:47 Depression Screening Interpretation: Negative Thrive Assessment: Date of Thrive Assessment Date Thrive assessed 01/03/24 01/03/24 13:47 Currently or been in a relationship where the following occur: no concerns reported Telehealth Telehealth Location of provider rendering services: practice address Location of patient: address on file Patient Identification confirmed using: Name, : Yes Telehealth method: video (Iphone) Patient verbally consented to treatment: Yes Patient verbally consented to billing insurance company: Yes Patient informed of any privacy concerns related to visit: Yes Minutes spent on Phone/Video with Pt.: 15 Assessment and Plan Assessment & Plan (1) COPD exacerbation: Code(s): J44.1 - Chronic obstructive pulmonary disease with (acute) exacerbation Plan: Discussed with the patient regarding treatments rescue inhaler which the patient has, steroids but the patient denies being tight on the chest. And antibiotic. Zithromax sent advised to increase oral fluids Mucinex to help productive cough. Medications: New azithromycin (Zithromax) For 250 mg dose pack: take 500 mg today (day 1), then 250 mg for 4 days (days 2-5) PO 6 tabs 0RF J44.1 - Chronic obstructive pulmonary disease with (acute) exacerbation azithromycin (Zithromax) For 250 mg dose pack: take 500 mg today (day 1), then 250 mg for 4 days (days 2-5) PO 6 tabs 0RF J44.1 - Chronic obstructive pulmonary disease with (acute) exacerbation Coding Level of Care Code Tele Est Pt Level 3 (32411) Diagnoses COPD exacerbation J44.1
== END 2023-04-05 16:35 | disposition home or self-care (01) ==
LOC: HO.HMGH 13:44
PROVIDERS: PCP Internal Medicine; Visit Provider Internal Medicine
DX: J44.1 Chronic obstructive pulmonary disease with (acute) exacerbation (principal)
CPT/HCPCS: 99213

== ENCOUNTER 2023-07-31 09:15 | Outpatient (AMB) | payer MEDICARE, SELFPAY ==
[2023-07-31 09:25] VITALS: BP 130/58; PULSE 66; O2SAT 96; BMI 27.4
--- NOTE | 2023-07-31 09:25 | MHC.OFFVIS ---
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 Allergies No Known Allergies Allergy (Verified 07/31/23 09:37) Medication List - Last Reconciled 07/31/23 by Jody Wade MD albuterol sulfate 90 mcg/actuation (ProAir HFA) 2 puffs inhalation Q6H PRN aspirin 81 mg PO DAILY cholecalciferol (vitamin D3) (Vitamin D3) 25 mcg PO DAILY clotrimazole 1% 1 appl topical BID 4 weeks fluticasone propion-salmeterol 113-14 mcg/actuation 1 inh PO BID garlic 1,000 mg PO DAILY hydrochlorothiazide 25 mg PO DAILY lisinopril 20 mg PO DAILY [id number]-xfskslxo-pskphy 1 tab PO DAILY omega 4-rcc-qll-fish oil 1,200 (144-216) mg (Fish Oil) 1 cap PO DAILY omeprazole 20 mg PO DAILY pravastatin 10 mg PO BEDTIME sildenafil 50 mg PO DAILY PRN triamcinolone acetonide 0.5% 1 appl topical BID Do you need a note to return to daycare/school/sports/work: No HPI HPI COPD: Details: 78 years old very pleasant gentleman 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 His breathing has remained very stable without any exacerbation. He gets very minor symptoms of common cold every few months but gets over the symptoms without any treatment. He say is that he does not like to take any antihistaminics, but does use Coricidin syrup p.r.n.. He has no shortness of breath on doing his moderate amount of physical activity. No significant cough or expectoration. [facility] Medical History COPD (chronic obstructive pulmonary disease) History of smoking at least 1 pack per day for at least 30 years COPD (chronic obstructive pulmonary disease) Wheezing Acute bronchitis GERD (gastroesophageal reflux disease) Erectile dysfunction History of ETOH abuse Barretts esophagus Hyperlipidemia Hypertension Surgical History History of cranial surgery History of appendectomy History of tonsillectomy History of umbilical hernia repair History of vasectomy History of left inguinal hernia repair History of esophagogastroduodenoscopy (EGD) Hx of colonoscopy Family History Father No problems noted. Mother Cancer Social History Housing: House Alcohol intake: current Alcohol intake frequency: a few times a month Alcohol type: beer Comment: once Q 6 months 1 beer Patient Tobacco Use Status: Former Tobacco user Tobacco use type: Cigarette Years Smoked: [id number] e-Cigarette/Vaping Use: Never Used Second Hand Smoke Exposure: No Current occupational status: retired Cognitive needs: No Hearing needs: No Vision needs: Yes (glasses) Review of Systems Const All systems reviewed & are unremarkable except as noted in HPI and below Eyes Reports no additional complaints ENT Reports no additional complaints Card Denies chest pain, Denies irregular heart rhythm and Denies leg edema Resp Reports as per HPI GI Reports heartburn (Controlled with medication) Reports no additional complaints Musc Reports no additional complaints Skin/Breast Reports system reviewed and no additional complaints, except as documented Neuro Reports no additional complaints Psych Reports no additional complaints Physical Exam Vital Signs: Last Vital Signs Pulse 66 07/31/23 09:25 BP 130/58 L 07/31/23 09:25 Pulse Ox 96 07/31/23 09:25 Oxygen Delivery Method Room Air 07/31/23 09:25 BMI result Body Mass Index 27.4 Const General: healthy appearing, comfortable, no acute distress, alert and awake Orientation/consciousness: patient oriented x3 HEENT Head: Yes normal to inspection General nose exam: No nasal polyps present and No nasal discharge present Face and sinus: Yes sinuses nontender Mouth: oropharynx normal Throat: Yes posterior oropharynx normal Eyes General: appearance normal, both eyes and all related structures Neck Neck: Yes normal visual inspection, Yes no lymphadenopathy, Yes trachea midline and Yes no JVD Thyroid: Thyroid normal Chest Chest palpation & inspection: normal inspection of the chest, normal palpation of entire chest wall and no tenderness Resp Other: Percussion note resonant, has good breath sounds on both sides, slightly distant with prolonged expiratory phase. No wheezes rhonchi or crepitations are heard. Cardio Palpation: normal PMI Rate: regular rate Rhythm: regular rhythm Heart sounds: no gallops and no murmurs Peripheral pulses: Peripheral pulses 2+ throughout GI Palpation (GI): Soft to palpation, nontender, No hepatosplenomegaly present and no masses Auscultation: normal bowel sounds Back/Spine/Pelvis Thoracic/Lumbar Spine: thoracic and lumbar spine normal to inspection Skin General skin exam: no rashes or lesions noted Neuro General: patient oriented x3 and no focal motor deficits Cranial nerves: Yes CN's II-XII intact bilaterally Extrem General: Yes normal to inspection, Yes no clubbing, cyanosis or edema and Yes no calf tenderness Psych Appearance: grossly normal and well kempt Speech and movement: Normal speech and movement present Assessment & Plan Assessment & Plan (1) COPD (chronic obstructive pulmonary disease): Comment: As per Pulmonary function test he has Moderately severe obstructive airway disorder. Remains well controlled and stable with AirDuo, 113-14 1 inhalation b.i.d., Code(s): J44.9 - Chronic obstructive pulmonary disease, unspecified Category: Medical Plan: Continue AirDuo 113-14 1 inhalation b.i.d. Use ProAir HFA only p.r.n.. RV q 6 months (2) History of smoking at least 1 pack per day for at least 30 years: Comment: He smoked for 40 years, almost 2 packs a day. But quit 20 years ago. Code(s): Z87.891 - Personal history of nicotine dependence Category: Social Hx Plan: At present he is a normal risk patient. Medications: Refilled fluticasone propion-salmeterol 113-14 mcg/actuation 1 inh PO BID 1 ea 5RF copd Coding Level of Care Code Est Pt Level 3 (42753) Diagnoses COPD (chronic obstructive pulmonary disease) J44.9 History of smoking at least 1 pack per day for at least 30 years Z87.897
== END 2023-07-31 09:38 | disposition home or self-care (01) ==
PROVIDERS: PCP Internal Medicine; Visit Provider Internal Medicine
DX: J44.9 Chronic obstructive pulmonary disease, unspecified (principal); Z87.891 Personal history of nicotine dependence
CPT/HCPCS: 99213

== ENCOUNTER → 2023-07-31 09:15 | Outpatient (BNVA) | payer MEDICARE, SELFPAY | PROVIDERS: PCP Internal Medicine; Visit Provider Internal Medicine | DX: J44.9 Chronic obstructive pulmonary disease, unspecified (principal); Z87.891 Personal history of nicotine dependence | CPT/HCPCS: 99212 ==

== ENCOUNTER 2023-08-04 15:56 | Outpatient (AMB) | payer MEDICARE, SELFPAY ==
--- NOTE | 2023-08-04 15:57 | MHC.PC.OV ---
Intake Visit Reasons: Cold Symptoms Allergies No Known Allergies Allergy (Verified 08/04/23 15:57) Tobacco use date assessed: 04/05/23 Dental Screening Dental Screen Date: 04/05/23 HPI Cold Symptoms HPI Details 78-year-old overweight male with hypertension hypercholesterolemia GERD with Garner's esophagus chronic kidney disease COPD coming in through Telehealth. Last seen for a COPD exacerbation in April 2023. cough 5 days seen Pulmo was told clear, has been no sore throat and no fevers. Patient has hypertension and cholesterol problem and last blood work complete was done in August 2022. Discussed that this will need blood work before September. Discussed also that if the cough persists lisinopril can be a reason. [facility] Medical History COPD (chronic obstructive pulmonary disease) History of smoking at least 1 pack per day for at least 30 years COPD (chronic obstructive pulmonary disease) Wheezing Acute bronchitis GERD (gastroesophageal reflux disease) Erectile dysfunction History of ETOH abuse Barretts esophagus Hyperlipidemia Hypertension Surgical History History of cranial surgery History of appendectomy History of tonsillectomy History of umbilical hernia repair History of vasectomy History of left inguinal hernia repair History of esophagogastroduodenoscopy (EGD) Hx of colonoscopy Family History Father No problems noted. Mother Cancer Social History Housing: House Alcohol intake: current Alcohol intake frequency: a few times a month Alcohol type: beer Comment: once Q 6 months 1 beer Patient Tobacco Use Status: Former Tobacco user Tobacco use type: Cigarette Years Smoked: [id number] e-Cigarette/Vaping Use: Never Used Second Hand Smoke Exposure: No Current occupational status: retired Cognitive needs: No Hearing needs: No Vision needs: Yes (glasses) Questionnaire PHQ-9 Over the last 2 weeks, how often have you been bothered by any of the following problems? 1. Little interest or pleasure in doing things: not at all 2. Feeling down, depressed, or hopeless: not at all 3. Trouble falling or staying asleep, or sleeping too much: not at all 4. Feeling tired or having little energy: not at all 5. Poor appetite or overeating: not at all 6. Feeling bad about yourself - or that you are a failure or have let yourself or your family down: not at all 7. Trouble concentrating on things, such as reading the newspaper or watching television: not at all 8. Moving or speaking so slowly that other people could have noticed. Or the opposite - being so fidgety or restless that you have been moving around a lot more than usual: not at all 9. Thoughts that you would be better off or of hurting yourself in some way: not at all Total score: 0 Depression Screening Interpretation: Negative Depression Screening Done: Yes Source: Developed by Drs. Deandre Toth, Anabel He, lEigio Cruz and colleagues, with an educational lamonte from [employer]. Thrive Questionnaire Date Thrive assessed: 04/05/23 AUDIT C Alcohol Use Questionnaire (AUDIT-C) 1. How often do you have a drink containing alcohol?: Monthly or less Total Score: 1 CORINNE-7 AMB Questionnaire CORINNE-7 Date CORINNE - 7 assessed: 04/05/23 Source: Developed by Drs. Deandre Toth, Anabel He, Eligio Cruz and colleagues, with an educational lamonte from [employer]. Physical exam (Primary Care) Tobacco/Smoking Status: Tobacco use Status Tobacco use date assessed 04/05/23 08/04/23 15:58 Patient Tobacco Use Status Former Tobacco user 08/04/23 15:58 Tobacco use type Cigarette 08/04/23 15:58 e-Cigarette/Vaping Use Never Used 08/04/23 15:58 PHQ-9: PHQ-9 Score PHQ-9: Total score 0 08/04/23 15:58 Depression Screening Interpretation: Negative Thrive Assessment: Date of Thrive Assessment Date Thrive assessed 04/05/23 08/04/23 15:58 Telehealth Telehealth Location of provider rendering services: practice address Location of patient: address on file Patient Identification confirmed using: Name, : Yes Telehealth method: video (Iphone) Patient verbally consented to treatment: Yes Patient verbally consented to billing insurance company: Yes Patient informed of any privacy concerns related to visit: Yes Minutes spent on Phone/Video with Pt.: 25 Assessment and Plan Assessment & Plan (1) Cough: Code(s): R05.9 - Cough, unspecified Plan: Cough prescription sent in and was advised to try allergy medication (2) Hypertension: Code(s): I10 - Essential (primary) hypertension Qualifiers: Hypertension type: essential hypertension Qualified Code(s): I10 - Essential (primary) hypertension Plan: Continue with blood pressure medication. Decrease salt intake and exercise on hydrochlorothiazide 25 mg and lisinopril 20 mg once a day (3) Garner's esophagus: Code(s): K22.70 - 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 Qualifiers: Garnre's esophagus type: without dysplasia Qualified Code(s): K22.70 - 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 Plan: Avoid the foods that causes that usually spicy foods, tomato products, juices, coffee, soda and foods that your sensitive to. After eating do not lie down, allow 3-4 hours before in lie down. And keep the head of bed above 30 degrees to avoid the acid from going up. (4) COPD (chronic obstructive pulmonary disease): Comment: As per Pulmonary function test he has Moderately severe obstructive airway disorder. Remains well controlled and stable with AirDuo, 113-14 1 inhalation b.i.d., Code(s): J44.9 - Chronic obstructive pulmonary disease, unspecified Plan: Patient on albuterol and Wixela. Orders: Orders Complete Blood Count Auto Diff Today E78.00 - Pure hypercholesterolemia, unspecified Comprehensive Met. Panel Today E78.00 - Pure hypercholesterolemia, unspecified Lipid Panel Today E78.00 - Pure hypercholesterolemia, unspecified Vitamin B12 and Folate Today E78.00 - Pure hypercholesterolemia, unspecified Free T4 (Free Thyroxine) Today E78.00 - Pure hypercholesterolemia, unspecified Thyroid Stimulating Hormone Today E78.00 - Pure hypercholesterolemia, unspecified Medications: New benzonatate 200 mg PO BID-TID PRN 30 caps 0RF cough R05.9 - Cough, unspecified fexofenadine (Peyton Allergy) 180 mg PO DAILY 30 tabs 0RF R05.9 - Cough, unspecified fexofenadine (Peyton Allergy) 180 mg PO DAILY 30 tabs 0RF R05.9 - Cough, unspecified benzonatate 200 mg PO BID-TID PRN 30 caps 0RF cough R05.9 - Cough, unspecified Coding Level of Care Code Tele Est Pt Level 4 (93501) Diagnoses Cough R05.9 Essential hypertension I10 Hypertension type: essential hypertension 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 K22.70 Garner's esophagus type: without dysplasia COPD (chronic obstructive pulmonary disease) J44.9
== END 2023-08-04 18:02 | disposition home or self-care (01) ==
LOC: HO.HMGH 15:57
PROVIDERS: PCP Internal Medicine; Visit Provider Internal Medicine
DX: R05.9 Cough, unspecified (principal); I10 Essential (primary) hypertension; K22.70 Barrett's esophagus without dysplasia; J44.9 Chronic obstructive pulmonary disease, unspecified
CPT/HCPCS: 99214

== ENCOUNTER 2023-09-04 06:04 | Outpatient (REF) | payer MEDICARE, SELFPAY ==
[2023-09-04 10:19] LABS: MANUAL DIFF FLAG NO
[2023-09-04 10:38] LABS: Basophils Percent Auto 0.5 % (0-2); Eosinophils Absolute Auto 0.4 X10*3/uL (0.0-0.4); Eosinophils Percent Auto 5.6 % (0-4); Hematocrit 41.2 % (42.0-52.0); Hemoglobin 13.7 g/dl (14.0-18.0); Imm Gran Abs Auto 0.02 X10*3/uL (0.00-0.03); Imm Gran Pct Auto 0.3 % (0.0-0.4); Lymphocytes Absolute Auto 2.1 X10*3/uL (1.2-4.9); Lymphocytes Percent Auto 28.6 % (20-40); Mean Corpuscular HGB Conc 33.3 g/dl (31.0-36.0); Mean Corpuscular Hemoglobin 31.5 pg (27.0-33.0); Mean Corpuscular Volume 94.7 fL (80.0-98.0); Mean Platelet Volume 10.8 fL (9.4-12.4); Monocytes Absolute Auto 0.6 X10*3/uL (0.1-1.2); Neutrophils Absolute Auto 4.2 x10*3/uL (2.0-8.3); Platelet Count 249 X10*3/uL (160-400); Red Blood Count 4.35 X10*6/uL (4.60-5.80); Red Cell Distribution Width 12.3 % (11.0-16.0); White Blood Count 7.4 X10*3/uL (4.8-10.8)
[2023-09-04 11:21] LABS: Alanine Aminotransferase 28 U/L (0-40); Albumin Level 4.2 g/dL (3.5-5.0); Alkaline Phosphatase 67 U/L (39-117); Anion Gap 13 (12-20); Aspartate Amino Transferase 23 U/L (5-37); Bilirubin Total 0.6 mg/dL (0.0-1.0); Blood Urea Nitrogen 29 mg/dL (9-16); Calcium 9.5 mg/dL (8.4-10.2); Carbon Dioxide 26 mmol/L (22-29); Chloride 101 mmol/L (96-108); Cholesterol 141 mg/dL (<200); Estimated Glomerular Filt Rate 38; Glucose Random 93 mg/dL (60-115); HDL Cholesterol 38 mg/dL (>40); LDL Cholesterol Calculated 81 mg/dL (<100); Potassium 4.5 mmol/L (3.3-5.1); Sodium 135 mmol/L (135-145); Total Protein 6.9 g/dL (6.5-8.0); Triglycerides 111 mg/dL (<150)
[2023-09-04 11:28] LABS: Free T4 (Free Thyroxine) 0.89 ng/dL (0.71-1.85); Thyroid Stimulating Hormone 1.72 uIU/mL (0.32-4.0)
[2023-09-04 11:49] LABS: Folate 11.9 ng/mL (> or = 4.0); Vitamin B12 673 pg/mL (200-900)
== END 2023-09-04 06:05 | disposition home or self-care (01) ==
LOC: HO.HMGCLDS 06:04
PROVIDERS: PCP Internal Medicine; Visit Provider Internal Medicine
DX: E78.00 Pure hypercholesterolemia, unspecified (principal)
CPT/HCPCS: 36415; 80053; 80061; 82607; 82746; 84439; 84443; 85025

== ENCOUNTER 2023-09-27 09:32 | Outpatient (AMB) | payer MEDICARE, SELFPAY ==
[2023-09-27 09:52] VITALS: BP 140/64; PULSE 58; O2SAT 97; BMI 26.5
--- NOTE | 2023-09-27 09:52 | A.OFFPC_ITS ---
Vital Signs 09/27/23 09:52 09/27/23 10:47 Height 5 ft 8.5 in Weight 177 lb 0.6 oz BMI 26.5 BP 140/64 H 120/60 Blood Pressure Location Lt brachial Lt brachial Position Sitting Sitting Pulse 58 Pulse Source Pulse Oximeter Pulse Oximetry (%) 97 Oxygen Delivery Method Room Air Intake Visit Reasons: cholesterol Continuity Person Required: No Allergies No Known Allergies Allergy (Verified 09/27/23 09:52) Tobacco use date assessed: 04/05/23 Fall risk assessment: No Falls in past year Last assessed Fall Risk: 09/27/23 Dental Screening Dental Screen Date: 04/05/23 HPI cholesterol HPI Details 78-year-old male with hypertension Richey tts COPD coming in for follow- up. Last seen in 08/21/2023. Patient is here for follow-up.noted blood work. as for the allergra- states causign drowsiness. takes melatonin and denies taking NSAID. [facility] Medical History COPD (chronic obstructive pulmonary disease) History of smoking at least 1 pack per day for at least 30 years COPD (chronic obstructive pulmonary disease) Wheezing Acute bronchitis GERD (gastroesophageal reflux disease) Erectile dysfunction History of ETOH abuse Barretts esophagus Hyperlipidemia Hypertension Surgical History History of cranial surgery History of appendectomy History of tonsillectomy History of umbilical hernia repair History of vasectomy History of left inguinal hernia repair History of esophagogastroduodenoscopy (EGD) Hx of colonoscopy Family History Father No problems noted. Mother Cancer Social History Housing: House Alcohol intake: current Alcohol intake frequency: a few times a month Alcohol type: beer Comment: once Q 6 months 1 beer Patient Tobacco Use Status: Former Tobacco user Tobacco use type: Cigarette Years Smoked: [id number] e-Cigarette/Vaping Use: Never Used Second Hand Smoke Exposure: No Current occupational status: retired Cognitive needs: No Hearing needs: No Vision needs: Yes (glasses) Questionnaire Thrive Questionnaire Date Thrive assessed: 04/05/23 AUDIT C Alcohol Use Questionnaire (AUDIT-C) 1. How often do you have a drink containing alcohol?: Monthly or less 3. How often do you have six or more drinks on one occasion?: Never Total Score: 1 CORINNE-7 AMB Questionnaire CORINNE-7 Date CORINNE - 7 assessed: 04/05/23 Source: Developed by Drs. Deandre Toth, Anabel He, Eligio Cruz and colleagues, with an educational lamonte from [employer]. Physical exam (Primary Care) Vital Signs: Last Vital Signs Pulse 58 09/27/23 09:52 BP 140/64 H 09/27/23 09:52 Pulse Ox 97 09/27/23 09:52 Oxygen Delivery Method Room Air 09/27/23 09:52 BMI result Body Mass Index 26.5 Tobacco/Smoking Status: Tobacco use Status Tobacco use date assessed 04/05/23 09/27/23 09:52 Patient Tobacco Use Status Former Tobacco user 09/27/23 09:52 Tobacco use type Cigarette 09/27/23 09:52 e-Cigarette/Vaping Use Never Used 09/27/23 09:52 Thrive Assessment: Date of Thrive Assessment Date Thrive assessed 04/05/23 09/27/23 09:52 Const General: alert; No acute distress Eyes Conjunctivae: conjunctivae normal Resp Auscultation: clear to auscultation bilaterally Cardio Rate: regular rate Rhythm: regular rhythm GI Inspection: Yes normal to inspection Extrem General: Yes normal to inspection and No edema Assessment and Plan Assessment & Plan (1) Anemia: Code(s): D64.9 - Anemia, unspecified Plan: Concern about the kidney problem and now having the anemia (2) Hypertension: Code(s): I10 - Essential (primary) hypertension Qualifiers: Hypertension type: essential hypertension Qualified Code(s): I10 - Essential (primary) hypertension Plan: Continue with blood pressure medication. Decrease salt intake and exercise on lisinopril 20 mg once a day hydrochlorothiazide 25 mg once a day (3) Hyperlipidemia: Code(s): E78.5 - Hyperlipidemia, unspecified Qualifiers: Hyperlipidemia type: pure hypercholesterolemia Qualified Code(s): E7 8.00 - Pure hypercholesterolemia, unspecified Plan: Avoid fried foods, chicken skin, eggs, butter margarine, pastries and meat. Be it pork or beef they have a lot of cholesterol LDL goal of less than 130 and triglyceride of less than 150. On pravastatin 10 mg once a day (4) Garner's esophagus: Code(s): K22.70 - 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 Qualifiers: Garner's esophagus type: without dysplasia Qualified Code(s): K22.70 - 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 Plan: Avoid the foods that causes that usually spicy foods, tomato products, juices, coffee, soda and foods that your sensitive to. After eating do not lie down, allow 3-4 hours before in lie down. And keep the head of bed above 30 degrees to avoid the acid from going up. Taking omeprazole 20 mg once a day (5) CKD (chronic kidney disease): Code(s): N18.9 - Chronic kidney disease, unspecified Qualifiers: Chronic kidney disease stage: stage 3 (moderate) Chronic kidney disease stage 3 subtype: stage 3a (GFR 45-59) Qualified Code(s): N18.31 - Chronic kidney disease, stage 3a Plan: Continue with the ProAir inhaler as needed (6) Carotid stenosis: Comment: 2021 Code(s): I65.29 - Occlusion and stenosis of unspecified carotid artery Orders: Orders Comprehensive Met. Panel Today N18.31 - Chronic kidney disease, stage 3a Complete Blood Count Auto Diff Today N18.31 - Chronic kidney disease, stage 3a Ferritin Today N18.31 - Chronic kidney disease, stage 3a IRON PROFILE Today N18.31 - Chronic kidney disease, stage 3a Vitamin B12 and Folate Today N18.31 - Chronic kidney disease, stage 3a Reticulocyte Count Today N18.31 - Chronic kidney disease, stage 3a US carotid duplex BI Today I65.29 - Occlusion and stenosis of unspecified carotid artery US renal BI Today N18.31 - Chronic kidney disease, stage 3a Coding Level of Care Code Est Pt Level 4 (13018) Complex EM visit Add On G2211 Diagnoses Anemia D64.9 Essential hypertension I10 Hypertension type: essential hypertension Pure hypercholesterolemia E78.00 Hyperlipidemia type: pure hypercholesterolemia 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 K22.70 Garner's esophagus type: without dysplasia Stage 3a chronic kidney disease N18.31 Chronic kidney disease stage: stage 3 (moderate) Chronic kidney disease stage 3 subtype: stage 3a (GFR 45-59) Carotid stenosis I65.29
[2023-09-27 10:47] VITALS: BP 120/60
== END 2023-09-27 11:02 | disposition home or self-care (01) ==
PROVIDERS: PCP Internal Medicine; Visit Provider Internal Medicine
DX: I12.9 Hypertensive chronic kidney disease with stage 1 through stage 4 chronic kidney disease, or unspecified chronic kidney disease (principal); D64.9 Anemia, unspecified; N18.31 Chronic kidney disease, stage 3a; E78.00 Pure hypercholesterolemia, unspecified; K22.70 Barrett's esophagus without dysplasia; I65.29 Occlusion and stenosis of unspecified carotid artery
CPT/HCPCS: 99214; G2211

== ENCOUNTER 2023-10-11 09:26 | Outpatient (REF) | payer MEDICARE, SELFPAY ==
--- NOTE | ~2023-10-11 | US_ITS ---
EXAMINATION: US RETROPERITONEAL LIMITED (RENAL ONLY) CLINICAL INFORMATION: Chronic kidney disease, stage 3a. COMPARISON: None available. TECHNIQUE: Real-time imaging of the kidneys. Limited visualization due to bowel gas. FINDINGS: RIGHT KIDNEY: 11.7 x 5.3 x 4.7 cm (SAG x AP x TRV). No hydronephrosis. No renal calculi. Renal cortical thickness is normal. Limited visualization. A 1.8 cm lower pole cyst with benign features. There is no indication for follow-up imaging. LEFT KIDNEY: 9.2 x 4.1 x 2.8 cm (SAG x AP x TRV). Diffuse renal cortical thinning. Limited visualization. No hydronephrosis. Tiny echogenic foci scattered in the left kidney may represent vascular calcifications, artifact or nonobstructive calculi. US/US renal BI IMPRESSION: 1. Diffuse left renal cortical thinning. 2. Tiny echogenic foci scattered in the left kidney may represent vascular calcifications, artifact or nonobstructive calculi.
--- NOTE | ~2023-10-11 | US_ITS ---
EXAMINATION: US EXTRACRANIAL CAROTID DUPLEX, BILATERAL CLINICAL INFORMATION: Transient cerebral ischemic attack COMPARISON: Carotid ultrasound 05/04/2021 TECHNIQUE: Real-time ultrasound and Doppler techniques (integrating B-mode 2-D vascular images, Doppler spectral analysis and color-flow Doppler imaging) were utilized to interrogate the extracranial carotid arteries, the vertebral arteries and proximal subclavian arteries bilaterally. The degree of stenosis is determined by criteria similar to NASCET. FINDINGS: Right Side: 1. There is moderate atherosclerotic plaque seen in the bifurcation/proximal ICA region. 2. The common carotid artery PSV proximally is 75 cm/s and distally 85 cm/s. 3. The proximal internal carotid artery velocities are 256 cm/s systolic and 50 cm/s diastolic. 4. The proximal external carotid artery PSV is 210 cm/s. 5. The vertebral artery shows antegrade flow. 6. The subclavian artery waveforms are normal. Left Side: 1. There is moderate atherosclerotic plaque seen in the bifurcation/proximal ICA region. 2. The common carotid artery PSV proximally is 62 cm/s and distally 87 cm/s. 3. The proximal internal carotid artery velocities are 171 cm/s systolic and 45 cm/s diastolic. 4. The proximal external carotid artery PSV is 167 cm/s. 5. The vertebral artery shows antegrade flow. 6. The subclavian artery waveforms are normal. US/US carotid duplex BI IMPRESSION: 1. RIGHT: Moderate, hemodynamically significant stenosis of the proximal right internal carotid artery corresponding to a 50-79% stenosis by velocity criteria. 2. LEFT: Moderate, hemodynamically significant stenosis of the proximal left internal carotid artery corresponding to a 50-79% stenosis by velocity criteria. 3. There is no change in the category severity of disease when compared to the previous study dated 05/04/2021..
== END 2023-10-11 09:27 | disposition home or self-care (01) ==
LOC: HO.US 09:26
PROVIDERS: PCP Internal Medicine; Visit Provider Internal Medicine
DX: N18.31 Chronic kidney disease, stage 3a (principal); I65.23 Occlusion and stenosis of bilateral carotid arteries
CPT/HCPCS: 76775; 93880

== ENCOUNTER 2024-01-29 09:15 | Outpatient (AMB) | payer MEDICARE, SELFPAY ==
[2024-01-29 09:26] VITALS: BP 130/62; PULSE 63; O2SAT 98; BMI 26.6
--- NOTE | 2024-01-29 09:26 | A.OFFVIS_ITS ---
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 Allergies No Known Allergies Allergy (Verified 01/29/24 09:36) Medication List - Last Reconciled 01/29/24 by Jody Wade MD albuterol sulfate 90 mcg/actuation (ProAir HFA) 2 puffs inhalation Q6H PRN aspirin 81 mg PO DAILY benzonatate 200 mg PO BID-TID PRN cholecalciferol (vitamin D3) (Vitamin D3) 25 mcg PO DAILY clotrimazole 1% 1 appl topical BID 4 weeks fexofenadine (Peyton Allergy) 180 mg PO DAILY fluticasone propion-salmeterol 113-14 mcg/actuation 1 inh PO BID garlic 1,000 mg PO DAILY hydrochlorothiazide 25 mg PO DAILY lisinopril 20 mg PO DAILY hqqsjfoamcpk-umyvznjh-pkcpjj 1 tab PO DAILY omega 7-tfq-ded-fish oil 1,200 (144-216) mg (Fish Oil) 1 cap PO DAILY omeprazole 20 mg PO DAILY pravastatin 10 mg PO BEDTIME sildenafil 50 mg PO DAILY PRN triamcinolone acetonide 0.5% 1 appl topical BID Do you need a note to return to daycare/school/sports/work: No HPI HPI COPD: Details: This 79 years old gentleman, 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 Comes for follow-up after 6 months. He has stayed very well with only minor intermittent to episodes of common cold. His work which involves maintenance of the building as well as of the lawns does not bother his breathing. He continues to use AirDuo 113-14 twice a day and stays well. He has not needed to use the rescue inhaler. [facility] Medical History COPD (chronic obstructive pulmonary disease) History of smoking at least 1 pack per day for at least 30 years COPD (chronic obstructive pulmonary disease) Wheezing Acute bronchitis GERD (gastroesophageal reflux disease) Erectile dysfunction History of ETOH abuse Tamara esophagus Hyperlipidemia Hypertension Surgical History History of cranial surgery History of appendectomy History of tonsillectomy History of umbilical hernia repair History of vasectomy History of left inguinal hernia repair History of esophagogastroduodenoscopy (EGD) Hx of colonoscopy Family History Father No problems noted. Mother Cancer Social History Housing: House Alcohol intake: current Alcohol intake frequency: a few times a month Alcohol type: beer Comment: once Q 6 months 1 beer Patient Tobacco Use Status: Former Tobacco user Tobacco use type: Cigarette Years Smoked: [id number] e-Cigarette/Vaping Use: Never Used Second Hand Smoke Exposure: No Current occupational status: retired Cognitive needs: No Hearing needs: No Vision needs: Yes (glasses) Review of Systems Const All systems reviewed & are unremarkable except as noted in HPI and below Eyes Reports no additional complaints ENT Reports no additional complaints Card Denies chest pain, Denies irregular heart rhythm and Denies leg edema Resp Reports as per HPI GI Reports heartburn (Controlled with medication) Reports no additional complaints Musc Reports no additional complaints Skin/Breast Reports system reviewed and no additional complaints, except as documented Neuro Reports no additional complaints Psych Reports no additional complaints Physical Exam Vital Signs: Last Vital Signs Pulse 63 01/29/24 09:26 BP 130/62 01/29/24 09:26 Pulse Ox 98 01/29/24 09:26 Oxygen Delivery Method Room Air 01/29/24 09:26 BMI result Body Mass Index 26.6 Const General: healthy appearing, comfortable, no acute distress, alert and awake Orientation/consciousness: patient oriented x3 HEENT Head: Yes normal to inspection General nose exam: No nasal polyps present and No nasal discharge present Face and sinus: Yes sinuses nontender Mouth: oropharynx normal Throat: Yes posterior oropharynx normal Eyes General: appearance normal, both eyes and all related structures Neck Neck: Yes normal visual inspection, Yes no lymphadenopathy, Yes trachea midline and Yes no JVD Thyroid: Thyroid normal Chest Chest palpation & inspection: normal inspection of the chest, normal palpation of entire chest wall and no tenderness Resp Other: Percussion note resonant, has good breath sounds on both sides, slightly distant with prolonged expiratory phase. No wheezes rhonchi or crepitations are heard. Cardio Palpation: normal PMI Rate: regular rate Rhythm: regular rhythm Heart sounds: no gallops and no murmurs Peripheral pulses: Peripheral pulses 2+ throughout GI Palpation (GI): Soft to palpation, nontender, No hepatosplenomegaly present and no masses Auscultation: normal bowel sounds Back/Spine/Pelvis Thoracic/Lumbar Spine: thoracic and lumbar spine normal to inspection Skin General skin exam: no rashes or lesions noted Neuro General: patient oriented x3 and no focal motor deficits Cranial nerves: Yes CN's II-XII intact bilaterally Extrem General: Yes normal to inspection, Yes no clubbing, cyanosis or edema and Yes no calf tenderness Psych Appearance: grossly normal and well kempt Speech and movement: Normal speech and movement present Office Procedures Spirometry Testing Spirometry Comments: Spirometry done in the office, Dr. Wade has the results results scanned to his chart. [id number] Spirometry Results Reviewed Results Reviewed: SPIROMETRY 01/29/24 08/25/2021 FVC= 79 % 76 % FEV1= 66 % 63% FEF 25-75 = 44 % 36 % Assessment & Plan Assessment & Plan (1) COPD (chronic obstructive pulmonary disease): Comment: As per Pulmonary function test he has Moderately severe obstructive airway disorder. Remains well controlled and stable with AirDuo, 113-14 1 inhalation b.i.d., Code(s): J44.9 - Chronic obstructive pulmonary disease, unspecified Category: Medical Plan: CONTINUE TO USE AIRDUO 113-14 1 INHALATION B.I.D. AND ALBUTEROL HFA 2 PUFFS Q 4-6 HOURS ONLY P.R.N. (2) History of smoking at least 1 pack per day for at least 30 years: Comment: He smoked for 40 years, almost 2 packs a day. But quit 20 years ago. Code(s): Z87.891 - Personal history of nicotine dependence Category: Social Hx Plan: NO NEED OF ANNUAL SCREENING. Orders: Orders AMB Spirometry Testing Today J44.9 - Chronic obstructive pulmonary disease, unspecified Coding Level of Care Code Est Pt Level 3 (05546) Diagnoses COPD (chronic obstructive pulmonary disease) J44.9 History of smoking at least 1 pack per day for at least 30 years Z87.891 CPT Codes Spirometry - CPT: 58815- Spirometry ([id number])
== END 2024-01-29 09:53 | disposition home or self-care (01) ==
PROVIDERS: PCP Internal Medicine; Visit Provider Internal Medicine
DX: J44.9 Chronic obstructive pulmonary disease, unspecified (principal); Z87.891 Personal history of nicotine dependence
CPT/HCPCS: 94010; 99213

== ENCOUNTER → 2024-01-29 09:15 | Outpatient (BNVA) | payer MEDICARE, SELFPAY | PROVIDERS: PCP Internal Medicine; Visit Provider Internal Medicine | DX: J44.9 Chronic obstructive pulmonary disease, unspecified (principal); Z87.891 Personal history of nicotine dependence | CPT/HCPCS: 94010; 99212 ==

== ENCOUNTER 2024-02-06 09:24 | Outpatient (AMB) | payer MEDICARE, SELFPAY ==
[2024-02-06 09:38] VITALS: BP 124/76; PULSE 61; O2SAT 98; BMI 26.4
--- NOTE | 2024-02-06 09:38 | A.OFFPC_ITS ---
Vital Signs 02/06/24 09:38 Height 5 ft 8.5 in Weight 176 lb BMI 26.4 BP 124/76 Blood Pressure Location Lt brachial Position Sitting Pulse 61 Pulse Source Pulse Oximeter Pulse Oximetry (%) 98 Oxygen Delivery Method Room Air Intake Visit Reasons: CKD, COPD, Barretts, Carotid Stenosis, Anemia Allergies No Known Allergies Allergy (Verified 02/06/24 09:40) Tobacco use date assessed: 04/05/23 Fall risk assessment: No Falls in past year Last assessed Fall Risk: 02/06/24 Dental Screening Dental Screen Date: 04/05/23 HPI CKD, COPD, Barretts, Carotid Stenosis, Anemia HPI Details 79-year-old male with a history of hyper tension hypercholesterolemia Barretts esophagus chronic kidney disease carotid artery stenosis with anemia coming in for follow-up last seen in September 2023. Patient's colonoscopy is done already last carotid ultrasound was done in 2023 57 9% bilateral ICA. Patient does follow-up with Pulmonary January 28 seen moderately severe obstructive airway disorder. On AirDuo. Patient did have an ultrasound of the kidney in October showing thinning as well as tiny echogenic scattered in the left kidney. Carotid artery disease ultrasoundRIGHT: Moderate, hemodynamically significant stenosis of the proximal right internal carotid artery corresponding to a 50-79% stenosis by velocity criteria. 2. LEFT: Moderate, hemodynamically signi ficant stenosis of the proximal left internal carotid artery corresponding to a 50-79% stenosis by velocity criteria. 3. There is no change in the category se verity of disease when compared to the previous study dated 05/04/2021.. [facility] Medical History COPD (chronic obstructive pulmonary disease) History of smoking at least 1 pack per day for at least 30 years COPD (chronic obstructive pulmonary disease) Wheezing Acute bronchitis GERD (gastroesophageal reflux disease) Erectile dysfunction History of ETOH abuse Barretts esophagus Hyperlipidemia Hypertension Surgical History History of cranial surgery History of appendectomy History of tonsillectomy History of umbilical hernia repair History of vasectomy History of left inguinal hernia repair History of esophagogastroduodenoscopy (EGD) Hx of colonoscopy Family History Father No problems noted. Mother Cancer Social History Housing: House Alcohol intake: current Alcohol intake frequency: a few times a month Alcohol type: beer Comment: once Q 6 months 1 beer Patient Tobacco Use Status: Former Tobacco user Tobacco use type: Cigarette Years Smoked: [id number] e-Cigarette/Vaping Use: Never Used Second Hand Smoke Exposure: No Current occupational status: retired Cognitive needs: No Hearing needs: No Vision needs: Yes (glasses) Questionnaire PHQ-9 Over the last 2 weeks, how often have you been bothered by any of the following problems? 1. Little interest or pleasure in doing things: not at all 2. Feeling down, depressed, or hopeless: not at all 3. Trouble falling or staying asleep, or sleeping too much: not at all 4. Feeling tired or having little energy: not at all 5. Poor appetite or overeating: not at all 6. Feeling bad about yourself - or that you are a failure or have let yourself or your family down: not at all 7. Trouble concentrating on things, such as reading the newspaper or watching television: not at all 8. Moving or speaking so slowly that other people could have noticed. Or the opposite - being so fidgety or restless that you have been moving around a lot more than usual: not at all 9. Thoughts that you would be better off or of hurting yourself in some way: not at all Total score: 0 Depression Screening Interpretation: Negative Depression Screening Done: Yes Source: Developed by Drs. Deandre Toth, Anabel He, Eligio Cruz and colleagues, with an educational lamonte from [employer]. Thrive Questionnaire Date Thrive assessed: 04/05/23 AUDIT C Alcohol Use Questionnaire (AUDIT-C) 1. How often do you have a drink containing alcohol?: Monthly or less 3. How often do you have six or more drinks on one occasion?: Never Total Score: 1 CORINNE-7 AMB Questionnaire CORINNE-7 Date CORINNE - 7 assessed: 04/05/23 Source: Developed by Drs. Deandre Toth, Anabel He, Eligio Cruz and colleagues, with an educational lamonte from [employer]. Physical exam (Primary Care) Vital Signs: Last Vital Signs Pulse 61 02/06/24 09:38 BP 124/76 02/06/24 09:38 Pulse Ox 98 02/06/24 09:38 Oxygen Delivery Method Room Air 02/06/24 09:38 BMI result Body Mass Index 26.4 Tobacco/Smoking Status: Tobacco use Status Tobacco use date assessed 04/05/23 02/06/24 09:39 Patient Tobacco Use Status Former Tobacco user 02/06/24 09:39 Tobacco use type Cigarette 02/06/24 09:39 e-Cigarette/Vaping Use Never Used 02/06/24 09:39 PHQ-9: PHQ-9 Score PHQ-9: Total score 0 02/06/24 10:20 Depression Screening Interpretation: Negative Thrive Assessment: Date of Thrive Assessment Date Thrive assessed 04/05/23 02/06/24 09:39 Const General: alert; No acute distress Eyes Conjunctivae: conjunctivae normal Resp Auscultation: clear to auscultation bilaterally Cardio Rate: regular rate Rhythm: regular rhythm GI Inspection: Yes normal to inspection Extrem General: Yes normal to inspection and No edema Coding Level of Care Code Est Pt Level 4 (28643) Complex EM visit Add On G2211 Diagnoses Bilateral carotid artery stenosis I65.23 Laterality: bilateral Pulmonary emphysema, unspecified emphysema type J43.9 COPD type: emphysema Emphysema type: unspecified Anemia, unspecified type D64.9 Anemia type: unspecified type Stage 3a chronic kidney disease N18.31 Chronic kidney disease stage: stage 3 (moderate) Chronic kidney disease stage 3 subtype: stage 3a (GFR 45-59) 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 K22.70 Garner's esophagus type: without dysplasia Essential hypertension I10 Hypertension type: essential hypertension Pure hypercholesterolemia E78.00 Hyperlipidemia type: pure hypercholesterolemia Assessment & Plan Assessment & Plan (1) Carotid stenosis: Comment: 01/21/2024 Code(s): I65.29 - Occlusion and stenosis of unspecified carotid artery Category: Medical Qualifiers: Laterality: bilateral Qualified Code(s): I65.23 - Occlusion and stenosis of bilateral carotid arteries Plan: Control the cholesterol, weight, blood pressure continuing to monitor (2) COPD (chronic obstructive pulmonary disease): Comment: As per Pulmonary function test he has Moderately severe obstructive airway disorder. Remains well controlled and stable with AirDuo, 113-14 1 inhalation b.i.d., Code(s): J44.9 - Chronic obstructive pulmonary disease, unspecified Category: Medical Qualifiers: COPD type: emphysema Emphysema type: unspecified Qualified Code(s): J43.9 - Emphysema, unspecified Plan: Patient follows up with Pulmonary on albuterol and AirDuo (3) Anemia: Code(s): D64.9 - Anemia, unspecified Category: Medical Qualifiers: Anemia type: unspecified type Qualified Code(s): D64.9 - Anemia, unspec ified Plan: Continue to monitor (4) CKD (chronic kidney disease): Code(s): N18.9 - Chronic kidney disease, unspecified Category: Medical Qualifiers: Chronic kidney disease stage: stage 3 (moderate) Chronic kidney disease stage 3 subtype: stage 3a (GFR 45-59) Qualified Code(s): N18.31 - Chronic kidney disease, stage 3a Plan: Keep well hydrated, avoid NSAIDs (5) Garner's esophagus: Code(s): K22.70 - 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 Category: Medical Qualifiers: Garner's esophagus type: without dysplasia Qualified Code(s): K22.70 - 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 Plan: Avoid the foods that causes that usually spicy foods, tomato products, juices, coffee, soda and foods that your sensitive to. After eating do not lie down, allow 3-4 hours before in lie down. And keep the head of bed above 30 degrees to avoid the acid from going up. (6) Hypertension: Code(s): I10 - Essential (primary) hypertension Category: Medical Qualifiers: Hypertension type: essential hypertension Qualified Code(s): I10 - Essential (primary) hypertension Plan: Continue with blood pressure medication. Decrease salt intake and exercise takes hydrochlorothiazide 25 mg once a day lisinopril 20 mg once a day (7) Hyperlipidemia: Code(s): E78.5 - Hyperlipidemia, unspecified Category: Medical Qualifiers: Hyperlipidemia type: pure hypercholesterolemia Qualified Code(s): E78.00 - Pure hypercholesterolemia, unspecified Plan: Avoid fried foods, chicken skin, eggs, butter margarine, pastries and meat. Be it pork or beef they have a lot of cholesterol LDL goal of less than 70 and triglyceride of less than 150 on pravastatin 10 mg at bedtime. Medications: Refilled hydrochlorothiazide 25 mg PO DAILY 90 tabs 2RF I10 - Essential (primary) hypertension
== END 2024-02-06 10:30 | disposition home or self-care (01) ==
LOC: HO.HMCH 09:24
PROVIDERS: PCP Internal Medicine; Visit Provider Internal Medicine
DX: I65.23 Occlusion and stenosis of bilateral carotid arteries (principal); J43.9 Emphysema, unspecified; D64.9 Anemia, unspecified; N18.31 Chronic kidney disease, stage 3a; K22.70 Barrett's esophagus without dysplasia; I10 Essential (primary) hypertension; E78.00 Pure hypercholesterolemia, unspecified

== ENCOUNTER → 2024-02-06 09:24 | Outpatient (BNVA) | payer MEDICARE, SELFPAY | PROVIDERS: PCP Internal Medicine; Visit Provider Internal Medicine | DX: I65.23 Occlusion and stenosis of bilateral carotid arteries (principal); J43.9 Emphysema, unspecified; D64.9 Anemia, unspecified; I12.9 Hypertensive chronic kidney disease with stage 1 through stage 4 chronic kidney disease, or unspecified chronic kidney disease; N18.31 Chronic kidney disease, stage 3a; K22.70 Barrett's esophagus without dysplasia; E78.00 Pure hypercholesterolemia, unspecified | CPT/HCPCS: 96127; 99212 ==

== ENCOUNTER 2024-03-20 13:26 | Outpatient (REF) | payer MEDICARE, SELFPAY ==
--- OUTSIDE RECORDS SUMMARY | 2024-03-20 13:28 | XMS_ITS | Patient Health Record ---
Author Organization [facility] Address [address] [place] [address] Care Team Providers Care Sanitary Inspector Name Role Phone Po Yo LOMBARDI Primary Care Provider Deandre Cruz [phone] REASON FOR REFERRAL No Information MEDICATIONS Medication SIG (Take, Route, Frequency, Duration) Notes Start Date End Date Status Multi Vitamin/Minerals Orally Active Aspir-81 81 MG 1 tablet Orally Once a day Active Garlic 1000 MG Orally Activ e Pravastatin Sodium 10 MG 1 tablet Orally Once a day Active Lisinopril 20 MG 1 tablet Orally Once a day Active Vitamin D 25 MCG (1000 UT) 1 tablet Oral ly Once a day Active Omeprazole 20 MG 1 capsule Orally Onc e a day for 30 12/20/2014 Active Zithromax 250 MG 2 tablet on the t day, then 1 tablet daily for 4 days Orally Not-Taking Sildenafil Citrate 50 MG 1 tablet as nee ded Orally Once a day Active Centrum Silver Orally Activ e Fish Oil 1200 MG 1 capsule Orally Onc e a day Active Cyclobenzaprine HCl 5 MG as directed Ora lly Once a day Not-Taking IMMUNIZATIONS Vaccine Route Administration Date Status Comme nts Influenza Unknown 01/02/2020 Administered SOCIAL HISTORY Sex Assigned At : Social History Observation Description Sex Assigned At Unknown Alcohol Screen Question Answer Notes Did you have a drink contain ing alcohol in the past year? Yes How often did you have a dri nk containing alcohol in the past year? Never (0 point) How many drinks did you have on a typical day when you were drinking in the past year? 1 or 2 drinks (0 point) Points 0 Interpretation Negative PROBLEMS Problem Type ICD Code Onset Dates Problem Status W/U Status Risk SNOMED Code Notes Problem Encounter for screening for malignant neoplasm of colon (Z12.11) Active confirmed Screening for malignant neoplasm of colon (563347094) Problem History of adenomatous polyp of colon (Z86.010) Active confirmed History of adenomatous polyp of colon (301595764) Problem GERD (gastroesophage al reflux disease) (K21.9) Active confirmed Gastroesophagea l reflux disease (245067150) Problem Garner esophagus (K22.70) Active confirmed Garner esophag us (459866147) PLAN OF TREATMENT Pending Test Test Name Order Date Pathology 04/10/2020 Future Test Test Name Order Date UPPER GI ENDOSCOPY 05/01/2014 UPPER GI ENDOSCOPY 02/18/2020 COLONOSCOPY 02/18/2020 Insurance Providers Payer Name Payer Address Payer Phone Subscriber Number Group Number Insured Name Patient Relationship to Insured Coverage Start Date Coverage End Date A[employer] MEDI COMP (REFERR AL REQUIRE D) [address] [address] [place] [address] [id number] JONAH MONTIEL Self - patient is the insured MEDICAL (GENERAL) HISTORY Medical History History ICD Code Screening colonoscopy, 09/2008--1 tubular adenoma removed. Hypertension Hyperlipidemia Denies [place],DM,CVA,Lung disease,renal dise ase GERD--EGD in 01/2014--severe erosive esophagitis, hiatal hernia--started on Omeprazole; F/U EGD 06/2014 was neg for esophagitis after starting a PPI-small area of Garner's without dysplasia Negative colonoscopy in 01/2014 except f or an AVM in ascending colon Surgical History Surgery Date(Month/Year) Left inguinal hernia surgery Vasectomy Umbilical hernia surgery planned with Dr Kan Ribera
[2024-03-20 16:11] LABS: MANUAL DIFF FLAG NO
[2024-03-20 16:14] LABS: Basophils Absolute Auto 0.1 X10*3/uL (0.0-0.2); Basophils Percent Auto 0.8 % (0-2); Eosinophils Absolute Auto 0.4 X10*3/uL (0.0-0.4); Eosinophils Percent Auto 5.4 % (0-4); Hemoglobin 13.9 g/dl (14.0-18.0); Imm Gran Abs Auto 0.02 X10*3/uL (0.00-0.03); Imm Gran Pct Auto 0.3 % (0.0-0.4); Immature Retic Fraction 7.7 % (2.3-13.4); Lymphocytes Absolute Auto 2.2 X10*3/uL (1.2-4.9); Lymphocytes Percent Auto 33.1 % (20-40); Mean Corpuscular HGB Conc 33.1 g/dl (31.0-36.0); Mean Corpuscular Hemoglobin 31.3 pg (27.0-33.0); Mean Corpuscular Volume 94.6 fL (80.0-98.0); Mean Platelet Volume 11.1 fL (9.4-12.4); Monocytes Absolute Auto 0.5 X10*3/uL (0.1-1.2); Monocytes Percent Auto 7.6 % (2-11); Neutrophils Absolute Auto 3.5 x10*3/uL (2.0-8.3); Neutrophils Percent Auto 52.8 % (45-73); Platelet Count 221 X10*3/uL (160-400); Red Blood Count 4.44 X10*6/uL (4.60-5.80); Red Cell Distribution Width 12.6 % (11.0-16.0); Retic HGB Equivalent 34.5 pg (30.0-35.0); Reticulocyte Percent 0.9 % (0.5-1.8); White Blood Count 6.6 X10*3/uL (4.8-10.8)
[2024-03-20 17:37] LABS: Folate 15.3 ng/mL (> or = 4.0); Vitamin B12 637 pg/mL (200-900)
[2024-03-20 17:50] LABS: Alanine Aminotransferase 33 U/L (0-40); Albumin Level 4.3 g/dL (3.5-5.0); Alkaline Phosphatase 61 U/L (39-117); Anion Gap 11 (12-20); Aspartate Amino Transferase 25 U/L (5-37); Bilirubin Total 0.5 mg/dL (0.0-1.0); Blood Urea Nitrogen 30 mg/dL (9-16); Calcium 9.9 mg/dL (8.4-10.2); Carbon Dioxide 27 mmol/L (22-29); Chloride 105 mmol/L (96-108); Estimated Glomerular Filt Rate 40; Glucose Random 83 mg/dL (60-115); Iron 92 mcg/dL (45-160); Percent Iron Saturation 29 % (15-50); Potassium 4.2 mmol/L (3.3-5.1); Sodium 139 mmol/L (135-145); Total Iron Binding Capacity 320 mcg/dL (228-428); Total Protein 7.2 g/dL (6.5-8.0); Unsaturated Iron Binding 228 ug/dL
[2024-03-20 18:09] LABS: Ferritin 134 ng/mL (20-250)
== END 2024-03-20 13:27 | disposition home or self-care (01) ==
LOC: HO.HMGCLDS 13:26
PROVIDERS: PCP Internal Medicine; Visit Provider Internal Medicine
DX: N18.31 Chronic kidney disease, stage 3a (principal)
CPT/HCPCS: 36415; 80053; 82607; 82728; 82746; 83540; 85025; 85045

== ENCOUNTER 2024-03-28 09:48 | Outpatient (AMB) | payer MEDICARE, SELFPAY ==
--- OUTSIDE RECORDS SUMMARY | 2024-03-28 09:51 | XMS_ITS | Patient Health Record ---
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 Name Role Phone Po Yo LOMBARDI Primary Care Provider Deandre Cruz [phone] REASON FOR REFERRAL No Information MEDICATIONS Medication [...] confirmed Screening for malignant neoplasm of colon (065672043) Problem History of adenomatous polyp of colon (Z86.010) Active confirmed History of adenomatous polyp of colon (837069686) Problem GERD (gastroesophage al reflux disease) (K21.9) Active confirmed Gastroesophagea l reflux disease (201282404) Problem Garner esophagus (K22.70) Active confirmed Garner esophag us (290446475) PLAN OF TREATMENT Pending Test Test Name Order Date Pathology 04/10/2020 Future Test Test Name Order Date UPPER GI ENDOSCOPY 05/01/2014 UPPER GI ENDOSCOPY 02/18/2020 COLONOSCOPY 02/18/2020 Insurance Providers Payer Name Payer Address Payer Phone Subscriber Number Group Number Insured Name Patient Relationship to Insured Coverage Start Date Coverage End Date AARP MEDI COMP (REFERR AL REQUIRE D) [address] [address] [place] [address] [phone] [id number] JONAH MONTIEL Self - patient is the insured MEDICAL (GENERAL) HISTORY Medical History History ICD Code Screening colonoscopy, 09/2008--1 tubular adenoma removed. Hypertension Hyperlipidemia Denies [place],DM,CVA,Lung disease,renal dise ase GERD--EGD in 01/2014--severe erosive [...]
[2024-03-28 10:06] VITALS: BP 130/70; PULSE 62; O2SAT 96; BMI 26.4
--- NOTE | 2024-03-28 10:06 | A.OFFPC_ITS ---
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: No Accompanied by: Spouse Allergies No Known Allergies Allergy (Verified 03/28/24 10:07) Medication List - Last Reconciled 03/28/24 by Yo Waggoner MD albuterol sulfate 90 mcg/actuation (ProAir HFA) 2 puffs inhalation Q6H PRN aspirin 81 mg PO DAILY benzonatate 200 mg PO BID-TID PRN cholecalciferol (vitamin D3) (Vitamin D3) 25 mcg PO DAILY clotrimazole 1% 1 appl topical BID 4 weeks fluticasone propion-salmeterol 113-14 mcg/actuation 1 inh PO BID garlic 1,000 mg PO DAILY hydrochlorothiazide 25 mg PO DAILY lisinopril 20 mg PO DAILY [id number]-psdprgbx-[id number] 1 tab PO DAILY omega 8-zcd-uob-fish oil 1,200 (144-216) mg (Fish Oil) 1 cap PO DAILY omeprazole 20 mg PO DAILY pravastatin 10 mg PO BEDTIME sildenafil 50 mg PO DAILY PRN triamcinolone acetonide 0.5% 1 appl topical BID Tobacco use date assessed: 04/05/23 Fall risk assessment: 1 Fall in past year Last assessed Fall Risk: 03/28/24 Dental Screening Dental Screen Date: 03/28/24 Did you have a dental visit in the last 12 months?: No Did you have a dental problem in the last 6 months where you did not have access to dental care?: No Was dental information given to patient?: Patient has dentist HPI Annual Exam HPI Details The patient is an 79-year-old male presenting with follow-up for his chronic conditions. He has a history of essential hypertension, managed with lisinopril and hydrochlorothiazide. The blood pressure has been stable. The patient is also diagnosed with Chronic Obstructive Pulmonary Disease (COPD) and has been using albuterol as required. For gastroesophageal conditions, he has Garner's esophagus and has been taking omeprazole for several years without heartburn complaints. Hyperlipidemia is managed with pravastatin, however, there are concerns about muscle cramping at higher doses. He has a known history of prostatic hyperplasia and reports nocturia one to two times per night. The patient is monitored for anemia and dehydration as labs showcased elevated blood urea nitrogen (BUN) levels indicating dehydration. There is a recent concern about renal function as creatinine levels were elevated. He has a history of tobacco use but has quit smoking. There were no new diagnoses or surgeries since the last visit, and he denies any symptoms such as dizziness, passing out, nausea, vomiting, or chest pain. - Received influenza vaccination - Received COVID-19 vaccination - Discussion on hydration levels to aleida almanza dehydration - Recommendation to increase water intak e to 3-4 bottles (16 ounces each) daily - Discussion on limiting sodium intake t o control blood pressure - Dietary guidance for cholesterol manag ement: reduce fried foods, saturated fats, and increase lean proteins with emphasis on chicken and fish - Discussed artificial sweeteners and re commended natural fruit infusions for water - Former tobacco use; the patient has pablo ccessfully quit smoking - Alcohol consumption reported as minima l, approximately every six months - Lives with spouse; is actively in volved in caregiving - Patient reports a generally active lif estyle, recently involved in home remodeling tasks - Nutritional intake includes garlic cap sules, avoidance of added salt and sugar in diet - General: Denies fever - Cardiovascular: Denies chest pain, hea viness, or discomfort - Gastrointestinal: Denies nausea, vomit ing, or difficulty swallowing - Genitourinary: Denies urinary retentio n; reports nocturia once or twice per night - Neurological: Denies dizziness, passin g out, or fainting - Respiratory: Denies shortness of breat h at night - ENT: Hearing reported as good - Labs: Anemia indicated with hemoglobin at 13.9. Elevated creatinine levels noted at 1.68. BUN levels increased, indicating dehydration. - Tests: Ultrasound previously noted a s mall left kidney stone. - Other: Lipid profile earlier in the ar showed LDL at 81, but below target level of <70 for cardiovascular risk reduction. [facility] Medical History (Updated 03/28/24 @ 11:10 by Yo Waggoner MD) COPD (chronic obstructive pulmonary disease) History of smoking at least 1 pack per day for at least 30 years COPD (chronic obstructive pulmonary disease) Wheezing Acute bronchitis GERD (gastroesophageal reflux disease) Erectile dysfunction History of ETOH abuse Barretts esophagus Hyperlipidemia Hypertension Surgical History History of cranial surgery History of appendectomy History of tonsillectomy History of umbilical hernia repair History of vasectomy History of left inguinal hernia repair History of esophagogastroduodenoscopy (EGD) Hx of colonoscopy Family History Father No problems noted. Mother Cancer Social History Housing: House Alcohol intake: current Alcohol intake frequency: a few times a month Alcohol type: beer Comment: once Q 6 months 1 beer Patient Tobacco Use Status: Former Tobacco user Tobacco use type: Cigarette Years Smoked: [id number] e-Cigarette/Vaping Use: Never Used Second Hand Smoke Exposure: No service: No Current occupational status: retired Cognitive needs: No Hearing needs: No Vision needs: Yes (glasses) Questionnaire PHQ-9 Over the last 2 weeks, how often have you been bothered by any of the following problems? 1. Little interest or pleasure in doing things: not at all 3. Trouble falling or staying asleep, or sleeping too much: not at all 4. Feeling tired or having little energy: not at all 5. Poor appetite or overeating: not at all 6. Feeling bad about yourself - or that you are a failure or have let yourself or your family down: not at all 7. Trouble concentrating on things, such as reading the newspaper or watching television: not at all 8. Moving or speaking so slowly that other people could have noticed. Or the opposite - being so fidgety or restless that you have been moving around a lot more than usual: not at all 9. Thoughts that you would be better off or of hurting yourself in some way: not at all Source: Developed by Drs. Deandre Toth, Anabel He, Eligio Cruz and colleagues, with an educational lamonte from [employer]. Thrive Questionnaire Date Thrive assessed: 03/21/24 I am a: Patient What is your living situation today?: I have a steady place to live Within the past 12 months, did the food you bought not last and you didn't have the money to get more?: I choose not to answer this question Within the past 12 months, did you worry whether your food would run out before you got money to buy more?: I choose not to answer this question Do you have trouble paying for medicines?: No Do you have trouble getting transportation to medical appointments?: No Do you have trouble paying your heating and electricity bill?: No Do you have trouble taking care of your child, family member or friend?: No Do you have trouble with day-to-day activities such as bathing, preparing meals, shopping, managing finances, etc.?: No Are you currently unemployed and looking for a job?: No Are you interested in more education?: No Please select the resources that you would like help with: None Currently or been in a relationship where the following occur: I choose not to answer THRIVE Score: 0 AUDIT C Alcohol Use Questionnaire (AUDIT-C) 1. How often do you have a drink containing alcohol?: Monthly or less 2. How many drinks containing alcohol do you have on a typical day when you are drinking?: 1 or 2 3. How often do you have six or more drinks on one occasion?: Never Total Score: 1 CORINNE-7 AMB Questionnaire CORINNE-7 Date CORINNE - 7 assessed: 04/05/23 Feeling nervous, anxious, or on edge: 0 = Not at all Not being able to stop or control worryin = Not at all Worrying too much about different things: 0 = Not at all Trouble relaxin = Not at all Being so restless that it is hard to sit still: 0 = Not at all Becoming easily annoyed or irritable: 0 = Not at all Feeling afraid as if something awful might happen: 0 = Not at all Total CORINNE-7 score (0-4 normal; 5-9 mild; 10-14 moderate; 15-21 severe): 0 Source: Developed by Drs. Deandre Toth, Anabel He, Eligio Cruz and colleagues, with an educational lamonte from [employer]. Review of Systems Const Denies poor appetite and Denies weakness Eyes Denies no additional complaints ENT Reports Normal hearing present, Denies dizziness, Denies nasal congestion, Denies tinnitus and Denies sore throat Card Denies chest pain, Denies syncope, Denies rapid heart rate and Denies dyspnea Resp Denies cough and Denies dyspnea GI Denies change in stool character, Reports constipation, Denies diarrhea, Denies nausea and Denies vomiting Denies dysuria and Denies urinary frequency Neuro Reports Normal hearing present, Denies confusion, Denies dizziness, Denies syncope and Denies weakness Psych Denies confusion Physical exam (Primary Care) Vital Signs: Last Vital Signs Pulse 62 03/28/24 10:06 BP 130/70 03/28/24 10:06 Pulse Ox 96 03/28/24 10:06 Oxygen Delivery Method Room Air 03/28/24 10:06 BMI result Body Mass Index 26.4 Tobacco/Smoking Status: Tobacco use Status Tobacco use date assessed 04/05/23 03/28/24 10:11 Patient Tobacco Use Status Former Tobacco user 03/28/24 10:11 Tobacco use type Cigarette 03/28/24 10:11 e-Cigarette/Vaping Use Never Used 03/28/24 10:11 Thrive Assessment: Date of Thrive Assessment Date Thrive assessed 03/21/24 03/28/24 10:11 Currently or been in a relationship where the following occur: I choose not to answer Const General: No confusion Orientation/consciousness: No confusion HENMT Head: Yes normocephalic Ears: external ears normal and TM's normal bilaterally Face and sinus: Yes normal facial exam Mouth: moist mucous membranes Throat: Yes tonsils normal Eyes Conjunctivae: conjunctivae normal Pupils: Equal, round and reactive pupils present and Pupil accommodation reflex normal Direct Ophthalmoscopy: normal light reflex Neck Neck: No lymphadenopathy Thyroid: Thyroid normal Chest Chest palpation & inspection: normal inspection of the chest Resp Effort & Inspection: normal respiratory effort and no audible wheezes Auscultation: clear to auscultation bilaterally, no crackles, no wheezes and lung sounds not diminished Cardio Rate: regular rate Rhythm: regular rhythm Peripheral pulses: radial pulses present and dorsalis pedis present GI Other: guaiac negative enlarged prostate Palpation (GI): no masses Auscultation: normal bowel sounds and normoactive bowel sounds Male General Exam: Yes normal external exam Skin General skin exam: no rashes or lesions noted Rashes: no rashes Neuro General: No confusion Cranial nerves: Yes Equal, round and reactive pupils present and Yes Normal hearing present Cognition (Neuro): normal cognition Gait exam (Neuro): Normal gait present Motor exam (neuro): 5/5 motor strength present throughout Deep tendon reflexes (DTR's): Right brachioradialis reflex intensity grade: 2+, Left brachioradialis reflex intensity grade: 2+, Right patellar reflex intensity grade: 2+ and Left patellar reflex intensity grade: 2+ Extrem General: No edema Coding Level of Care Code Est Pt Level 4 (13471) Complex EM visit Add On G2211 Diagnoses Annual physical exam Z00.00 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 K22.70 Garner's esophagus type: without dysplasia Essential hypertension I10 Hypertension type: essential hypertension Pure hypercholesterolemia E78.00 Hyperlipidemia type: pure hypercholesterolemia Peripheral vascular disease I73.9 Pulmonary emphysema, unspecified emphysema type J43.9 COPD type: emphysema Emphysema type: unspecified Renal insufficiency N28.9 Anemia, unspecified type D64.9 Anemia type: unspecified type Bilateral carotid artery stenosis I65.23 Laterality: bilateral Benign prostatic hyperplasia without lower urinary tract symptoms N40.0 Lower urinary tract symptom presence: symptoms absent Assessment & Plan Assessment & Plan (1) Annual physical exam: Code(s): Z00.00 - Encounter for general adult medical examination without abnormal findings Category: Medical Plan: Patient is advised to eat healthy, keep well hydrated, keep active and have adequate sleep. (2) Garner's esophagus: Code(s): K22.70 - 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 Category: Medical Qualifiers: Garner's esophagus type: without dysplasia Qualified Code(s): K22.70 - 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 Plan: Avoid the foods that causes that usually spicy foods, tomato products, juices, coffee, soda and foods that your sensitive to. After eating do not lie down, allow 3-4 hours before in lie down. And keep the head of bed above 30 degrees to avoid the acid from going up. (3) Hypertension: Code(s): I10 - Essential (primary) hypertension Category: Medical Qualifiers: Hypertension type: essential hypertension Qualified Code(s): I10 - Essential (primary) hypertension Plan: Continue with blood pressure medication. Decrease salt intake and exercise patient is taking lisinopril 20 mg once a day hydrochlorothiazide 25 mg once a day (4) Hyperlipidemia: Code(s): E78.5 - Hyperlipidemia, unspecified Category: Medical Qualifiers: Hyperlipidemia type: pure hypercholesterolemia Qualified Code(s): E78.00 - Pure hypercholesterolemia, unspecified Plan: Avoid fried foods, chicken skin, eggs, butter margarine, pastries and meat. Be it pork or beef they have a lot of cholesterol LDL goal of below 70 and triglyceride of less than 150 patient on pravastatin 10 mg at bedtime. (5) Peripheral vascular disease: Code(s): I73.9 - Peripheral vascular disease, unspecified Category: Medical Plan: When sitting down elevate the legs, exercise, and support stockings, and continuing to monitor carotids. (6) COPD (chronic obstructive pulmonary disease): Comment: As per Pulmonary function test he has Moderately severe obstructive airway disorder. Remains well controlled and stable with AirDuo, 113-14 1 inhalation b.i.d., Code(s): J44.9 - Chronic obstructive pulmonary disease, unspecified Category: Medical Qualifiers: COPD type: emphysema Emphysema type: unspecified Qualified Code(s): J43.9 - Emphysema, unspecified Plan: Patient on albuterol inhaler and Advair (7) Renal insufficiency: Code(s): N28.9 - Disorder of kidney and ureter, unspecified Category: Medical Plan: Patient has been referred to Nephrology and advised to continue monitoring renal function, keep well hydrated, avoid NSAIDs (8) Anemia: Code(s): D64.9 - Anemia, unspecified Category: Medical Qualifiers: Anemia type: unspecified type Qualified Code(s): D64.9 - Anemia, unspecified Plan: Continuing to monitor (9) Carotid stenosis: Comment: 2021, 01/21/2024 Code(s): I65.29 - Occlusion and stenosis of unspecified carotid artery Category: Medical Qualifiers: Laterality: bilateral Qualified Code(s): I65.23 - Occlusion and stenosis of bilateral carotid arteries Plan: Control the cholesterol, weight, blood pressure patient is on aspirin (10) BPH (benign prostatic hyperplasia): Code(s): N40.0 - Benign prostatic hyperplasia without lower urinary tract symptoms Category: Medical Qualifiers: Lower urinary tract symptom presence: symptoms absent Qualified Code(s): N40.0 - Benign prostatic hyperplasia without lower urinary tract symptoms Plan - Continue current antihypertensives lisinopril and hydrochlorothiazide. - Ensure adequate hydration to address elevated BUN and dehydration. - Referral to nephrology for elevated creatinine and possible kidney stone. - Changed cholesterol management from pravastatin to rosuvastatin 5 mg nightly. - Continue omeprazole for Garner?s esophagus. - Monitor blood pressure, renal function, cholesterol in follow-up visits. - Suggest trial of using Claritin if Peyton causes drowsiness. - Continue lifestyle modifications including dietary adjustments for cholesterol management and increased fluid intake. During the visit, I discussed the importance of maintaining stable blood pressure and managing chronic conditions, including COPD and Garner?s esophagus. We reviewed the significance of elevated creatinine and the need for a nephrology consult. I emphasized the necessity of increasing water intake to improve hydration and address elevated BUN. Additionally, we explored cholesterol management options, and the patient was agreeable to trying rosuvastatin. We reviewed potential side effects of medications, particularly statins, and discussed muscle cramping and advised changes accordingly. Discussed options for allergy medications due to drowsiness effects with current treatment. The patient and partner appeared receptive to recommendations and encouraged to maintain consistent follow-up to monitor blood pressure, renal function, and cholesterol levels. - Continue taking all current medications as prescribed. - Start rosuvastatin 5 mg once daily at night, replacing pravastatin. - Increase daily water intake to at least three to four 16-ounce bottles. - Follow a low-sodium, low-cholesterol diet focusing on lean proteins, vegetables, and limited fried foods. - Schedule and attend consultation with nephrology regarding kidney function. - Monitor any changes in urinary habits or symptoms and report them. - Consider Claritin for allergies if current medication leads to drowsiness. - Return for follow-up in approximately three months for reassessment of chronic conditions and lab reviews. - Contact the clinic with any new symptoms or concerns. Orders: Orders Lipid Panel 3 Months E78.00 - Pure hypercholesterolemia, unspecified Comprehensive Met. Panel 3 Months E78.00 - Pure hypercholesterolemia, unspecified Complete Blood Count Auto Diff 3 Months E78.00 - Pure hypercholesterolemia, unspecified UA CC w/rflx Micro + Cult 3 Months E78.00 - Pure hypercholesterolemia, unspecified, R30.0 - Dysuria Referrals Nephrology Referral N28.9 - Disorder of kidney and ureter, unspecified Medications: New rosuvastatin 5 mg PO DAILY 30 tabs 3RF E78.00 - Pure hypercholesterolemia, unspecified Refilled hydrochlorothiazide 25 mg PO DAILY 90 tabs 2RF I10 - Essential (primary) hypertension Discontinued pravastatin Discontinued Reason: Doctor's Order 10 mg PO BEDTIME 90 tabs 0RF E78.00 - Pure hypercholesterolemia, unspecified
== END 2024-03-28 11:14 | disposition home or self-care (01) ==
PROVIDERS: PCP Internal Medicine; Visit Provider Internal Medicine
DX: I73.9 Peripheral vascular disease, unspecified (principal); J43.9 Emphysema, unspecified; K22.70 Barrett's esophagus without dysplasia; I10 Essential (primary) hypertension; E78.00 Pure hypercholesterolemia, unspecified; N28.9 Disorder of kidney and ureter, unspecified; D64.9 Anemia, unspecified; I65.23 Occlusion and stenosis of bilateral carotid arteries; N40.0 Benign prostatic hyperplasia without lower urinary tract symptoms

== ENCOUNTER → 2024-03-28 09:48 | Outpatient (BNVA) | payer MEDICARE, SELFPAY | PROVIDERS: PCP Internal Medicine; Visit Provider Internal Medicine | DX: Z00.00 Encounter for general adult medical examination without abnormal findings (principal); K22.70 Barrett's esophagus without dysplasia; I10 Essential (primary) hypertension; E78.00 Pure hypercholesterolemia, unspecified; I73.9 Peripheral vascular disease, unspecified; J43.9 Emphysema, unspecified; N28.9 Disorder of kidney and ureter, unspecified; D64.9 Anemia, unspecified; I65.23 Occlusion and stenosis of bilateral carotid arteries; N40.0 Benign prostatic hyperplasia without lower urinary tract symptoms; R30.0 Dysuria; Z87.891 Personal history of nicotine dependence; Z79.899 Other long term (current) drug therapy | CPT/HCPCS: 99212 ==

== ENCOUNTER 2024-04-23 13:28 | Outpatient (AMB) | payer MEDICARE, SELFPAY ==
--- NOTE | 2024-04-23 13:30 | HO.NEPHOV_ITS ---
Vital Signs 04/23/24 13:31 Height 5 ft 8.5 in Weight 180 lb BMI 27.0 BP 126/52 L Blood Pressure Location Lt brachial Position Sitting Pulse 67 Pulse Source Pulse Oximeter Pulse Oximetry (%) 97 Oxygen Delivery Method Room Air Intake Visit Reasons: DX-CKD/ Conf Mixer Foam Rubber Required: No Accompanied by: Spouse Allergies No Known Allergies Allergy (Verified 04/23/24 13:34) Medication List - Last Reconciled 04/23/24 by Randall Hendrickson MD albuterol sulfate 90 mcg/actuation (ProAir HFA) 2 puffs inhalation Q6H PRN aspirin 81 mg PO DAILY benzonatate 200 mg PO BID-TID PRN budesonide 0.5 mg (4 mL) inhalation BID 30 days cholecalciferol (vitamin D3) (Vitamin D3) 25 mcg PO DAILY clotrimazole 1% 1 appl topical BID 4 weeks fluticasone propion-salmeterol 113-14 mcg/actuation 1 inh PO BID garlic 1,000 mg PO DAILY hydrochlorothiazide 25 mg PO DAILY ipratropium-albuterol 0.5 mg-3 mg(2.5 mg base)/3 mL 3 mL inhalation Q6H PRN 30 days lisinopril 20 mg PO DAILY iunxwqsnmmni-zqgveref-aglnvj 1 tab PO DAILY omega 2-cmr-ojo-fish oil 1,200 (144-216) mg (Fish Oil) 1 cap PO DAILY omeprazole 20 mg PO DAILY rosuvastatin 5 mg PO DAILY sildenafil 50 mg PO DAILY PRN triamcinolone acetonide 0.5% 1 appl topical BID HPI Comments Details: 79-year-old man with a history of longstanding hypertension. He has been on hydrochlorothiazide and lisinopril. Blood pressure has been reasonably stable. History of COPD and currently on inhalers. He is serum creatinine has been around 1.3 mg/dL for the last few years. However in September of 2023 creatinine bumped up to 1.74 Renal ultrasonogram done at the time was unremarkable. In March 2024 serum creatinine was 1.68 and hence this consultation. He has been drinking adequate fluids. He denies any urinary symptoms. No rash no weight loss. No edema. No history of smoking at present history of smoking several years ago. No history of alcohol abuse. [facility] Medical History (Updated 03/28/24 @ 11:10 by Yo Waggoner MD) COPD (chronic obstructive pulmonary disease) History of smoking at least 1 pack per day for at least 30 years COPD (chronic obstructive pulmonary disease) Wheezing Acute bronchitis GERD (gastroesophageal reflux disease) Erectile dysfunction History of ETOH abuse Barretts esophagus Hyperlipidemia Hypertension Surgical History History of cranial surgery History of appendectomy History of tonsillectomy History of umbilical hernia repair History of vasectomy History of left inguinal hernia repair History of esophagogastroduodenoscopy (EGD) Hx of colonoscopy Family History Father No problems noted. Mother Cancer Social History Housing: House Alcohol intake: current Alcohol intake frequency: a few times a month Alcohol type: beer Comment: once Q 6 months 1 beer Patient Tobacco Use Status: Former Tobacco user Tobacco use type: Cigarette Years Smoked: [id number] e-Cigarette/Vaping Use: Never Used Second Hand Smoke Exposure: No service: No Current occupational status: retired Cognitive needs: No Hearing needs: No Vision needs: Yes (glasses) Review of Systems Const Denies fever(s) and Denies weight loss Card Denies chest pain Resp Denies cough and Denies hemoptysis GI Denies abdominal pain, Denies diarrhea and Denies nausea Musc Denies back pain Neuro Denies focal weakness Physical Exam Vital Signs: Last Vital Signs Pulse 67 04/23/24 13:31 BP 126/52 L 04/23/24 13:31 Pulse Ox 97 04/23/24 13:31 Oxygen Delivery Method Room Air 04/23/24 13:31 BMI result Body Mass Index 27.0 Comfortable Neck supple no JVD. Lungs entry equal no rales. Heart S1-S2 heard no gallop or rub. Abdomen soft nontender. Neuro alert awake oriented. No asterixis. Extremities no edema. Results Reviewed Nephrology Results: Hgb 13.9 g/dl (14.0-18.0) L 03/20/24 WBC 6.6 X10*3/uL (4.8-10.8) 03/20/24 Plt Count 221 X10*3/uL (160-400) 03/20/24 Sodium 139 mmol/L (135-145) 03/20/24 Potassium 4.2 mmol/L (3.3-5.1) 03/20/24 Chloride 105 mmol/L (96-108) 03/20/24 Carbon Dioxide 27 mmol/L (22-29) 03/20/24 BUN 30 mg/dL (9-16) H 03/20/24 Creatinine 1.68 mg/dL (0.5-1.4) H 03/20/24 Calcium 9.9 mg/dL (8.4-10.2) 03/20/24 Renal US 10/11/23 Assessment & Plan Assessment & Plan (1) Renal insufficiency: Code(s): N28.9 - Disorder of kidney and ureter, unspecified Category: Medical Plan 79-year-old man with chronic kidney disease. Stage IIIB CKD. Differential diagnosis would include hypertensive nephrosclerosis. Recent ultrasonogram did not reveal any obstruction. Other possibilities including glomerular nephritis or interstitial disease should be considered and we will be ruled out. He could have a component of hypoperfusion with a combination of HAIR inhibitors and diuretics. Recommendation Hold hydrochlorothiazide for now. Continue with lisinopril. Monitor blood pressure closely. Continue overt nephrotoxic agents including NSAIDs. Workup ordered as outline below including urine studies. Further workup will be based on the outcome of the baseline investigations. I have reassured him and answered all his questions. Orders: Orders Total Protein Urine Random 2 Weeks N28.9 - Disorder of kidney and ureter, unspecified Comprehensive Met. Panel 2 Weeks N28.9 - Disorder of kidney and ureter, unspecified Parathyroid Hormone Intact 2 Weeks N28.9 - Disorder of kidney and ureter, unspecified Creatinine Urine 2 Weeks N28.9 - Disorder of kidney and ureter, unspecified UA and rflx microscopic 2 Weeks N28.9 - Disorder of kidney and ureter, unspecified Creatine Kinase Total 2 Weeks N28.9 - Disorder of kidney and ureter, unspecified Medications: On Hold hydrochlorothiazide Hold Comment: Doctor's Order 25 mg PO DAILY 90 tabs 2RF I10 - Essential (primary) hypertension Coding Level of Care Code New Pt Level 4 (57644) Diagnoses Renal insufficiency N28.9
[2024-04-23 13:31] VITALS: BP 126/52; PULSE 67; O2SAT 97; BMI 27.0
== END 2024-04-23 13:54 | disposition home or self-care (01) ==
PROVIDERS: PCP Internal Medicine; Visit Provider Internal Medicine Hypertension Specialist
DX: N28.9 Disorder of kidney and ureter, unspecified (principal)
CPT/HCPCS: 99204

== ENCOUNTER → 2024-04-23 13:28 | Outpatient (BNVA) | payer MEDICARE, SELFPAY | PROVIDERS: PCP Internal Medicine; Visit Provider Internal Medicine Hypertension Specialist | DX: N28.9 Disorder of kidney and ureter, unspecified (principal); I10 Essential (primary) hypertension; J44.9 Chronic obstructive pulmonary disease, unspecified | CPT/HCPCS: 99202 ==

== ENCOUNTER 2024-05-10 09:16 | Outpatient (REF) | payer MEDICARE, SELFPAY ==
--- NOTE | ~2024-05-10 | XR_ITS ---
EXAMINATION: XR CHEST 2 VIEWS HISTORY: R05.9 - Cough, unspecified COMPARISON: Comparison is made with the prior examination dated 05/29/2021. FINDINGS: PA and lateral views of the chest are submitted. The lungs are expanded and clear. There is no pleural effusion, pneumothorax, or pulmonary vascular congestion. The heart is normal in size. The bones are intact. XR/XR chest 2V IMPRESSION: No acute cardiopulmonary abnormality. Electronically signed by: Deandre Escobar MD 05/10/2024 10:35 AM JOE
--- OUTSIDE RECORDS SUMMARY | 2024-05-10 10:54 | XMS_ITS | Encounter Summary ---
Author Organization [facility] Address [address] [place] [address] Phone Care Team Providers Care Scrap Breaker Name Role Phone Yo Waggoner MD Primary Care Provider [phone] Encounter Details Date Type Department Care Team (Late st Contact Info) Description 04/08/2024 Documentation Only [facility] [place], [address] [place] [address] Renee Lao [place] [address] [place] [address] Social History Tobacco Use Types Packs/Day Years Used Date Smoking Tobacco: Never Assessed Sex and Gender Information Value Date Recorded Sex Assigned at Not on file Legal Sex Male 12:57 PM EST Gender Identity Not on file Sexual Orientation Not on file documented as of this encounter Plan of Treatment Not on file documented as of this encounter Visit Diagnoses Not on filedocumented in this encounter Care Teams Scrap Breaker Relationship Specialty Start Date End Date Yo Waggoner MD [facility] [address] [place], [place] PCP - General Internal Medicine 04/08/24 documented as of this encounter
--- OUTSIDE RECORDS SUMMARY | 2024-05-10 10:54 | XMS_ITS | Clinical Summary ---
Author Organization [facility] Address [address] [place] [address] Phone Care Team Providers Care Denture Laboratory Technician Name Role Phone Yo Waggoner MD Primary Care Provider [phone] Encounters Date Type Department Care Team Description 04/12/2024 Documentation Only [facility] [address] [place] [address] Renee Lao [place] 04/08/2024 Documentation Only [facility] [address] [place] [address] Renee Lao [place] from Last 3 Months Social History Tobacco Use Types Packs/Day Years Used Date Smoking Tobacco: Never Assessed Sex and Gender Information Value Date Recorded Sex Assigned at Not on file Legal Sex Male 12:57 PM EST Gender Identity Not on file Sexual Orientation Not on file Plan of Treatment Health Maintenance Due Date Last Done Comments Pneumococcal Vaccine: 65+ Ye ars (1 of 1 - PCV) 01/13/2009 Influenza Vaccine (#1) 2023 Hepatitis B Vaccine Aged Out No longe r eligible based on patient's age to complete this topic Insurance [facility] [place] [address] Care Teams Denture Laboratory Technician Relationship Specialty Start Date End Date Yo Waggoner MD [facility] [place] [address] [place] PCP - General Internal Medicine 04/08/24
--- OUTSIDE RECORDS SUMMARY | 2024-05-10 10:54 | XMS_ITS | Encounter Summary ---
Author Organization [facility] Address [address] [place] [address] Phone Care Team Providers Care Stars Coordinator Name Role Phone Yo Waggoner MD Primary Care Provider [phone] Encounter Details Date Type Department Care Team (Late st Contact Info) Description 04/12/2024 Documentation Only [facility] [place], [address] [place] [address] Renee Lao [place] [address] [place] [address] Social History Tobacco Use Types [...] on filedocumented in this encounter Care Teams Stars Coordinator Relationship Specialty Start Date End Date Yo Waggoner MD [facility] [address] [place], [place] PCP - General Internal Medicine 04/08/24 documented as of this encounter
== END 2024-05-10 09:17 | disposition home or self-care (01) ==
LOC: HO.XRAY 09:16
PROVIDERS: PCP Internal Medicine
DX: R05.9 Cough, unspecified (principal); J43.9 Emphysema, unspecified; I10 Essential (primary) hypertension
CPT/HCPCS: 71046; 96127; 99212

== ENCOUNTER → 2024-05-10 09:16 | Outpatient (AMB) | payer MEDICARE, SELFPAY | END | disposition home or self-care (01) | PROVIDERS: PCP Internal Medicine ==

== ENCOUNTER → 2024-05-10 10:11 | Outpatient (BNV) | payer MEDICARE, SELFPAY | PROVIDERS: PCP Internal Medicine; Visit Provider Radiology Diagnostic Radiology | DX: R05.9 Cough, unspecified (principal) | CPT/HCPCS: 71046 ==

== ENCOUNTER 2024-05-11 06:33 | Outpatient (REF) | payer MEDICARE, SELFPAY ==
--- OUTSIDE RECORDS SUMMARY | 2024-05-11 06:35 | XMS_ITS | Encounter Summary ---
Author Organization [facility] Address [address] [place] [address] Phone Care Team Providers Care Laborer Concrete Paving Name Role Phone Yo Waggoner MD Primary Care Provider [phone] Encounter Details Date Type Department Care Team (Late st Contact Info) Description 04/12/2024 Documentation Only [facility] [place], [address] [place] [address] Renee Lao [place] [address] [place] [address] Social History Tobacco Use Types [...] on filedocumented in this encounter Care Teams Laborer Concrete Paving Relationship Specialty Start Date End Date Yo Waggoner MD [facility] [address] [place], [place] PCP - General Internal Medicine 04/08/24 documented as of this encounter
--- OUTSIDE RECORDS SUMMARY | 2024-05-11 06:35 | XMS_ITS | Encounter Summary ---
Author Organization [facility] Address [address] [place] [address] Phone Care Team Providers Care Chief Of Staff Doctor Name Role Phone Yo Waggoner MD Primary Care Provider [phone] Encounter Details Date Type Department Care Team (Late st Contact Info) Description 04/08/2024 Documentation Only [facility] [place], [address] [place] [address] Renee Lao [place] [address] [place] [address] Social History Tobacco Use Types [...] on filedocumented in this encounter Care Teams Chief Of Staff Doctor Relationship Specialty Start Date End Date Yo Waggoner MD [facility] [address] [place], [place] PCP - General Internal Medicine 04/08/24 documented as of this encounter
--- OUTSIDE RECORDS SUMMARY | 2024-05-11 06:35 | XMS_ITS | Patient Health Record ---
Author Organization 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 [address] [place] [address] [id number] JONAH MONTIEL Self - patient is the insured MEDICAL (GENERAL) HISTORY Medical History History ICD Code Screening colonoscopy, 09/2008--1 tubular adenoma removed. Hypertension Hyperlipidemia Denies RI,DM,CVA,Lung disease,renal dise ase GERD--EGD in 01/2014--severe erosive [...]
[2024-05-11 11:13] LABS: Appearance Urine Clear; Color Urine Yellow; Glucose Urine UA Negative (Negative); Leukocyte Esterase Urine Negative (Negative); Nitrite Urine Negative (Negative); Urine Blood Negative (Negative); Urine Ketones Negative (Negative); Urine Protein Negative (Neg-Trace)
[2024-05-11 11:33] LABS: Total Protein Urine Random < 7 mg/dL (<12)
[2024-05-11 11:35] LABS: Alanine Aminotransferase 36 U/L (0-40); Alkaline Phosphatase 59 U/L (39-117); Anion Gap 10 (12-20); Aspartate Amino Transferase 34 U/L (5-37); Bilirubin Total 0.8 mg/dL (0.0-1.0); Blood Urea Nitrogen 15 mg/dL (9-16); Calcium 9.2 mg/dL (8.4-10.2); Carbon Dioxide 28 mmol/L (22-29); Chloride 105 mmol/L (96-108); Estimated Glomerular Filt Rate > 60; Glucose Random 89 mg/dL (60-115); Potassium 4.9 mmol/L (3.3-5.1); Sodium 138 mmol/L (135-145); Total Protein 6.9 g/dL (6.5-8.0)
[2024-05-11 14:11] LABS: Parathyroid Hormone Intact 74.4 pg/mL (8.7-77.1)
== END 2024-05-11 06:34 | disposition home or self-care (01) ==
LOC: HO.HMGCLDS 06:33
PROVIDERS: PCP Internal Medicine; Visit Provider Internal Medicine Hypertension Specialist
DX: N28.9 Disorder of kidney and ureter, unspecified (principal)
CPT/HCPCS: 36415; 80053; 81003; 82550; 82570; 83970; 84156

== ENCOUNTER 2024-05-13 09:13 | Outpatient (AMB) | payer MEDICARE, SELFPAY ==
--- NOTE | 2024-05-13 09:30 | HO.NEPHOV_ITS ---
Vital Signs 05/13/24 09:32 Height 5 ft 8.5 in Weight 179 lb 8 oz BMI 26.9 BP 140/60 H Blood Pressure Location Rt brachial Position Sitting Pulse 71 Pulse Source Pulse Oximeter Pulse Oximetry (%) 95 Oxygen Delivery Method Room Air Intake Visit Reasons: Per MD Office Machine Repair Shop Supervisor Required: No Accompanied by: Self / Same As Patient Allergies No Known Allergies Allergy (Verified 05/13/24 09:32) HPI Comments Details: 79-year-old man with a history of longstanding hypertension and had been on hydrochlorothiazide and lisinopril. He developed BRIGITTE and his HCTZ has been on hold. His renal functions have improved to baseline. His blood pressure has been reasonably stable. He is serum creatinine has been around 1.3 mg/dL for the last few years. However in September of 2023 creatinine bumped up to 1.74 which has improved to baseline. Renal ultrasonogram had been unremarkable. He denies any urinary symptoms. No rash no weight loss. No edema. No history of smoking at present history of smoking several years ago. No history of alcohol abuse. He feels well. [facility] Medical History COPD (chronic obstructive pulmonary disease) History of smoking at least 1 pack per day for at least 30 years COPD (chronic obstructive pulmonary disease) Wheezing Acute bronchitis GERD (gastroesophageal reflux disease) Erectile dysfunction History of ETOH abuse Barretts esophagus Hyperlipidemia Hypertension Surgical History History of cranial surgery History of appendectomy History of tonsillectomy History of umbilical hernia repair History of vasectomy History of left inguinal hernia repair History of esophagogastroduodenoscopy (EGD) Hx of colonoscopy Family History Father No problems noted. Mother Cancer Social History Housing: House Alcohol intake: current Alcohol intake frequency: a few times a month Alcohol type: beer Comment: once Q 6 months 1 beer Patient Tobacco Use Status: Former Tobacco user Tobacco use type: Cigarette Years Smoked: [id number] e-Cigarette/Vaping Use: Never Used Second Hand Smoke Exposure: No service: No Current occupational status: retired Cognitive needs: No Hearing needs: No Vision needs: Yes (glasses) Review of Systems Const All systems reviewed & are unremarkable except as noted in HPI and below Physical Exam Vital Signs: Last Vital Signs Pulse 71 05/13/24 09:32 BP 140/60 H 05/13/24 09:32 Pulse Ox 95 05/13/24 09:32 Oxygen Delivery Method Room Air 05/13/24 09:32 BMI result Body Mass Index 26.9 Const General: comfortable and no acute distress Orientation/consciousness: patient oriented x3 HEENT Head: Yes normocephalic Mouth: Normal oral and palatal mucosa present Eyes EOM: EOMs intact bilaterally Neck Neck: Yes supple Resp Auscultation: clear to auscultation bilaterally Cardio Jugular venous distension: no JVD Rate: regular rate GI Palpation (GI): Soft to palpation Auscultation: normal bowel sounds General: Yes no CVA tenderness Back/Spine/Pelvis Back: no CVA tenderness Skin General skin exam: no rashes or lesions noted Neuro General: patient oriented x3 and moves all extremities Extrem General: Yes no pedal edema Results Reviewed Nephrology Results: Sodium 138 mmol/L (135-145) 05/11/24 Potassium 4.9 mmol/L (3.3-5.1) 05/11/24 Chloride 105 mmol/L (96-108) 05/11/24 Carbon Dioxide 28 mmol/L (22-29) 05/11/24 BUN 15 mg/dL (9-16) 05/11/24 Creatinine 0.98 mg/dL (0.5-1.4) 05/11/24 Calcium 9.2 mg/dL (8.4-10.2) 05/11/24 PTH Intact 74.4 pg/mL (8.7-77.1) 05/11/24 Urine Protein Negative mg/dL (Neg-Trace) 05/11/24 Urine Creatinine 72.70 mg/dL 05/11/24 Assessment & Plan Assessment & Plan (1) Hypertension: Code(s): I10 - Essential (primary) hypertension Category: Medical Qualifiers: Hypertension type: essential hypertension Qualified Code(s): I10 - Essential (primary) hypertension Plan 79-year-old man with 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 His renal function is back to baseline. Recent ultrasonogram did not reveal any obstruction. His HCTZ is on hold but tolerating ACEI. His BP needs to be maintained at 130/80 mm of Hg. If his BP remains high, shall add low dose Amlodipine. No NSAID's. Good hydration. Has a follow up late this month. Answered all questions. Coding Level of Care Code Est Pt Level 4 (38203) Diagnoses Essential hypertension I10 Hypertension type: essential hypertension
[2024-05-13 09:32] VITALS: BP 140/60; PULSE 71; O2SAT 95; BMI 26.9
--- OUTSIDE RECORDS SUMMARY | 2024-05-13 09:42 | XMS_ITS | Clinical Summary ---
Author Organization [facility] Address [address] [address] Phone Care Team Providers Care Electrical Tech Name Role Phone Yo Waggoner MD Primary Care Provider [phone] Encounters Date Type Department Care Team Description 04/12/2024 Documentation Only [facility] [address] [address] Renee Lao [place] 04/08/2024 Documentation Only [facility] [address] [place] [address] Renee Lao [place] from Last [...] patient's age to complete this topic Insurance [facility] MEDICARE Care Teams Electrical Tech Relationship Specialty Start Date End Date Yo Waggoner MD [facility] [place] [address] [place] PCP - General Internal Medicine 04/08/24
--- OUTSIDE RECORDS SUMMARY | 2024-05-13 09:42 | XMS_ITS | Encounter Summary ---
Author Organization [facility] Address [address] [place] [address] Phone Care Team Providers Care Senior Oracle Database Developer Name Role Phone Yo Waggoner MD Primary Care Provider Encounter Details Date Type Department Care Team (Late st Contact Info) Description 04/12/2024 Documentation Only [facility] [place], [address] [place] [address] Renee Lao [place] [address] [place] [address] Social History Tobacco Use Types [...] on filedocumented in this encounter Care Teams Senior Oracle Database Developer Relationship Specialty Start Date End Date Yo Waggoner MD [facility] [address] [place], [place] PCP - General Internal Medicine 04/08/24 documented as of this encounter
--- OUTSIDE RECORDS SUMMARY | 2024-05-13 09:43 | XMS_ITS | Patient Health Record ---
Author Organization [facility] Address [address] [place] [address] Care Team Providers Care Ground Support Equipment Mechanic Name Role Phone Po Yo LOMBARDI Primary Care Provider Deandre Cruz [phone] REASON FOR REFERRAL No Information MEDICATIONS Medication [...] confirmed Screening for malignant neoplasm of colon (869903663) Problem History of adenomatous polyp of colon (Z86.010) Active confirmed History of adenomatous polyp of colon (103775112) Problem GERD (gastroesophage al reflux disease) (K21.9) Active confirmed Gastroesophagea l reflux disease (518532008) 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 [address] [place] [address] [phone] [id number] JONAH MONTIEL Self - patient is the insured MEDICAL (GENERAL) HISTORY Medical History History ICD Code Screening colonoscopy, 09/2008--1 tubular adenoma removed. Hypertension Hyperlipidemia Denies [place],DM,CVA,Lung disease,renal dise ase GERD--EGD in 01/2014--severe erosive esophagitis, hiatal hernia--started on Omeprazole; F/U EGD 06/2014 was neg for esophagitis after starting a PPI-small area of Garner's without dysplasia Negative colonoscopy in 01/2014 except f or an AVM in ascending colon Surgical History Surgery Date(Month/Year) Left inguinal hernia surgery Vasectomy Umbilical hernia surgery planned with Dr Kan iRbera
--- OUTSIDE RECORDS SUMMARY | 2024-05-13 09:43 | XMS_ITS | Encounter Summary ---
Author Organization [facility] Address [address] [place] [address] Phone Care Team Providers Care Dining Room Coordinator Name Role Phone Yo Waggoner MD Primary Care Provider [phone] Encounter Details Date Type Department Care Team (Late st Contact Info) Description 04/08/2024 Documentation Only [facility] [place], [address] [place] [address] Renee Lao [place] [address] [place] [address] Social History Tobacco Use Types [...] on filedocumented in this encounter Care Teams Dining Room Coordinator Relationship Specialty Start Date End Date Yo Waggoner MD [facility] [address] [place], [place] PCP - General Internal Medicine 04/08/24 documented as of this encounter
== END 2024-05-13 10:08 | disposition home or self-care (01) ==
PROVIDERS: PCP Internal Medicine; Visit Provider Internal Medicine Nephrology
DX: I10 Essential (primary) hypertension (principal)
CPT/HCPCS: 99214

== ENCOUNTER → 2024-05-13 09:13 | Outpatient (BNVA) | payer MEDICARE, SELFPAY | PROVIDERS: PCP Internal Medicine; Visit Provider Internal Medicine Nephrology | DX: I10 Essential (primary) hypertension (principal) | CPT/HCPCS: 99212 ==

== ENCOUNTER 2024-05-30 09:20 | Outpatient (AMB) | payer MEDICARE, SELFPAY ==
[2024-05-30 09:22] VITALS: BP 142/68; PULSE 65; O2SAT 96; BMI 26.7
--- NOTE | 2024-05-30 09:22 | HO.NEPHOV_ITS ---
Vital Signs 05/30/24 09:22 Height 5 ft 8.5 in Weight 178 lb BMI 26.7 BP 142/68 H Blood Pressure Location Lt brachial Position Sitting Pulse 65 Pulse Source Pulse Oximeter Pulse Oximetry (%) 96 Oxygen Delivery Method Room Air Intake Visit Reasons: CKD/ Okay per Jeannie/ Sushil Wardrobe Consultant Required: No Accompanied by: Self / Same As Patient Allergies No Known Allergies Allergy (Verified 05/30/24 09:25) HPI Comments Details: 79-year-old man with a history of longstanding hypertension. He has been on hydrochlorothiazide and lisinopril. Blood pressure has been reasonably stable. History of COPD and currently on inhalers. He is serum creatinine has been around 1.3 mg/dL for the last few years. However in September of 2023 creatinine bumped up to 1.74 Renal ultrasonogram done at the time was unremarkable. In March 2024 serum creatinine was 1.68 and hence this consultation. He has been drinking adequate fluids. He denies any urinary symptoms. No rash no weight loss. No edema. No history of smoking at present history of smoking several years ago. No history of alcohol abuse. 05/30/24 After stopping HCTZ, cr is down to 0.85 Home BP 130- 145 Systolic [facility] Medical History COPD (chronic obstructive pulmonary disease) History of smoking at least 1 pack per day for at least 30 years COPD (chronic obstructive pulmonary disease) Wheezing Acute bronchitis GERD (gastroesophageal reflux disease) Erectile dysfunction History of ETOH abuse Barretts esophagus Hyperlipidemia Hypertension Surgical History History of cranial surgery History of appendectomy History of tonsillectomy History of umbilical hernia repair History of vasectomy History of left inguinal hernia repair History of esophagogastroduodenoscopy (EGD) Hx of colonoscopy Family History Father No problems noted. Mother Cancer Social History Housing: House Alcohol intake: current Alcohol intake frequency: a few times a month Alcohol type: beer Comment: once Q 6 months 1 beer Patient Tobacco Use Status: Former Tobacco user Tobacco use type: Cigarette Years Smoked: [id number] e-Cigarette/Vaping Use: Never Used Second Hand Smoke Exposure: No service: No Current occupational status: retired Cognitive needs: No Hearing needs: No Vision needs: Yes (glasses) Physical Exam Vital Signs: Last Vital Signs Pulse 65 05/30/24 09:22 BP 142/68 H 05/30/24 09:22 Pulse Ox 96 05/30/24 09:22 Oxygen Delivery Method Room Air 05/30/24 09:22 BMI result Body Mass Index 26.7 Results Reviewed Nephrology Results: Hgb 13.9 g/dl (14.0-18.0) L 03/20/24 WBC 6.6 X10*3/uL (4.8-10.8) 03/20/24 Plt Count 221 X10*3/uL (160-400) 03/20/24 Sodium 138 mmol/L (135-145) 05/11/24 Potassium 4.9 mmol/L (3.3-5.1) 05/11/24 Chloride 105 mmol/L (96-108) 05/11/24 Carbon Dioxide 28 mmol/L (22-29) 05/11/24 BUN 15 mg/dL (9-16) 05/11/24 Creatinine 0.98 mg/dL (0.5-1.4) 05/11/24 Calcium 9.2 mg/dL (8.4-10.2) 05/11/24 PTH Intact 74.4 pg/mL (8.7-77.1) 05/11/24 Urine Protein Negative mg/dL (Neg-Trace) 05/11/24 Urine Creatinine 72.70 mg/dL 05/11/24 Assessment & Plan Assessment & Plan (1) Renal insufficiency: Code(s): N28.9 - Disorder of kidney and ureter, unspecified Category: Medical Plan 79-year-old man with chronic kidney disease. Stage IIIB CKD. Differential diagnosis would include hypertensive nephrosclerosis. Recent ultrasonogram did not reveal any obstruction. No evidence of glomerular nephritis or interstitial disease- Urine is bland Superimposed BRIGITTE He had a component of hypoperfusion with a combination of HAIR inhibitors and diuretics. Cr improved after stopping HCTZ Now at 0.8 Recommendation DC hydrochlorothiazide Increase lisinopril to 30 mg QD Monitor blood pressure closely. Continue to avoid nephrotoxic agents including NSAIDs. I have reassured him and answered all his questions. Orders: Orders Basic Metabolic Panel 3 Months N28.9 - Disorder of kidney and ureter, unspecified Medications: Changed From lisinopril 20 mg PO DAILY 90 tabs 0RF E78.00 - Pure hypercholesterolemia, unspecified To lisinopril 30 mg PO DAILY 90 tabs 1RF E78.00 - Pure hypercholesterolemia, unspecified Discontinued hydrochlorothiazide Discontinued Reason: Doctor's Order 25 mg PO DAILY 90 tabs 2RF I10 - Essential (primary) hypertension Coding Level of Care Code Est Pt Level 4 (84004) Diagnoses Renal insufficiency N28.9
--- OUTSIDE RECORDS SUMMARY | 2024-05-30 10:10 | XMS_ITS | Patient Health Record ---
Author Organization [facility] Address [address] [place] [address] Care Team Providers Care Poly Packer And Heat Sealer Name Role Phone Po Yo LOMBARDI Primary Care Provider Deandre Cruz [phone] REASON FOR REFERRAL No Information MEDICATIONS Medication [...] confirmed Screening for malignant neoplasm of colon (388461699) Problem History of adenomatous polyp of colon (Z86.010) Active confirmed History of adenomatous polyp of colon (400038438) Problem GERD (gastroesophage al reflux disease) (K21.9) Active confirmed Gastroesophagea l reflux disease (947399960) 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 [address] [place] [address] [id number] JONAH MONTIEL Self - patient is the insured MEDICAL (GENERAL) HISTORY Medical History History ICD Code Screening colonoscopy, 09/2008--1 tubular adenoma removed. Hypertension Hyperlipidemia Denies IA,DM,CVA,Lung disease,renal dise ase GERD--EGD in 01/2014--severe erosive [...]
--- OUTSIDE RECORDS SUMMARY | 2024-05-30 10:10 | XMS_ITS | Encounter Summary ---
Author Organization [facility] Address [address] [place] [address] Phone Care Team Providers Care Technology Analyst Name Role Phone Yo Waggoner MD Primary Care Provider [phone] Encounter Details Date Type Department Care Team (Late st Contact Info) Description 04/12/2024 Documentation Only [facility] [place], [address] [place] [address] Renee Lao [place] [address] [place] [address] Social History Tobacco Use Types [...] on filedocumented in this encounter Care Teams Technology Analyst Relationship Specialty Start Date End Date Yo Waggoner MD [facility] [address] [place], [place] PCP - General Internal Medicine 04/08/24 documented as of this encounter
--- OUTSIDE RECORDS SUMMARY | 2024-05-30 10:10 | XMS_ITS | Clinical Summary ---
Author Organization [facility] Address [address] [place] [address] Phone Care Team Providers Care Stereoptic Projection Topographer Name Role Phone Yo Waggoner MD Primary Care Provider [phone] Encounters Date Type Department Care Team Description 04/12/2024 Documentation Only [facility] [address] [place] [address] Renee Lao [place] 04/08/2024 Documentation Only [facility] [address] [place] [address] Renee Lao [place] from Last [...] patient's age to complete this topic Insurance [facility] MEDICARE Care Teams Stereoptic Projection Topographer Relationship Specialty Start Date End Date Yo Waggoner MD [facility] [place] [address] [place] PCP - General Internal Medicine 04/08/24
--- OUTSIDE RECORDS SUMMARY | 2024-05-30 10:10 | XMS_ITS | Encounter Summary ---
Author Organization [facility] Address [address] [place] [address] Phone Care Team Providers Care Waterproof Coating Machine Tender Name Role Phone Yo Waggoner MD Primary Care Provider [phone] Encounter Details Date Type Department Care Team (Late st Contact Info) Description 04/08/2024 Documentation Only [facility] [place], [address] [place] [address] Renee Lao [place] [address] [place] [address] Social History Tobacco Use Types [...] on filedocumented in this encounter Care Teams Waterproof Coating Machine Tender Relationship Specialty Start Date End Date Yo Waggoner MD [facility] [address] [place], [place] PCP - General Internal Medicine 04/08/24 documented as of this encounter
== END 2024-05-30 09:41 | disposition home or self-care (01) ==
PROVIDERS: PCP Internal Medicine; Visit Provider Internal Medicine Hypertension Specialist
DX: N28.9 Disorder of kidney and ureter, unspecified (principal)
CPT/HCPCS: 99214

== ENCOUNTER → 2024-05-30 09:20 | Outpatient (BNVA) | payer MEDICARE, SELFPAY | PROVIDERS: PCP Internal Medicine; Visit Provider Internal Medicine Hypertension Specialist | DX: N28.9 Disorder of kidney and ureter, unspecified (principal) | CPT/HCPCS: 99212 ==

== ENCOUNTER 2024-06-22 06:31 | Outpatient (REF) | payer MEDICARE, SELFPAY ==
[2024-06-22 12:01] LABS: MANUAL DIFF FLAG NO
[2024-06-22 12:09] LABS: Basophils Absolute Auto 0.1 X10*3/uL (0.0-0.2); Basophils Percent Auto 0.7 % (0-2); Eosinophils Absolute Auto 0.3 X10*3/uL (0.0-0.4); Eosinophils Percent Auto 4.6 % (0-4); Hematocrit 46.9 % (42.0-52.0); Hemoglobin 15.4 g/dl (14.0-18.0); Imm Gran Abs Auto 0.02 X10*3/uL (0.00-0.03); Imm Gran Pct Auto 0.3 % (0.0-0.4); Lymphocytes Absolute Auto 2.2 X10*3/uL (1.2-4.9); Lymphocytes Percent Auto 29.9 % (20-40); Mean Corpuscular HGB Conc 32.8 g/dl (31.0-36.0); Mean Corpuscular Volume 94.6 fL (80.0-98.0); Mean Platelet Volume 11.4 fL (9.4-12.4); Monocytes Absolute Auto 0.6 X10*3/uL (0.1-1.2); Monocytes Percent Auto 7.8 % (2-11); Neutrophils Absolute Auto 4.2 x10*3/uL (2.0-8.3); Neutrophils Percent Auto 56.7 % (45-73); Platelet Count 247 X10*3/uL (160-400); Red Blood Count 4.96 X10*6/uL (4.60-5.80); Red Cell Distribution Width 12.7 % (11.0-16.0); White Blood Count 7.4 X10*3/uL (4.8-10.8)
[2024-06-22 12:34] LABS: Alanine Aminotransferase 30 U/L (0-40); Albumin Level 4.1 g/dL (3.5-5.0); Alkaline Phosphatase 70 U/L (39-117); Anion Gap 13 (12-20); Aspartate Amino Transferase 29 U/L (5-37); Bilirubin Total 0.7 mg/dL (0.0-1.0); Blood Urea Nitrogen 18 mg/dL (9-16); Calcium 9.3 mg/dL (8.4-10.2); Carbon Dioxide 27 mmol/L (22-29); Chloride 104 mmol/L (96-108); Cholesterol 133 mg/dL (<200); Estimated Glomerular Filt Rate 59; Glucose Random 97 mg/dL (60-115); HDL Cholesterol 47 mg/dL (>40); LDL Cholesterol Calculated 71 mg/dL (<100); Potassium 4.9 mmol/L (3.3-5.1); Sodium 139 mmol/L (135-145); Total Protein 7.3 g/dL (6.5-8.0); Triglycerides 77 mg/dL (<150)
[2024-06-22 12:40] LABS: Appearance Urine Clear; Color Urine Yellow; Glucose Urine UA Negative (Negative); Leukocyte Esterase Urine Negative (Negative); Nitrite Urine Negative (Negative); PH 6.5 (5.0-9.0); Urine Blood Negative (Negative); Urine Ketones Negative (Negative); Urine Protein Negative (Neg-Trace)
== END 2024-06-22 06:32 | disposition home or self-care (01) ==
LOC: HO.HMGCLDS 06:31
PROVIDERS: PCP Internal Medicine; Visit Provider Internal Medicine
DX: E78.00 Pure hypercholesterolemia, unspecified (principal); R30.0 Dysuria
CPT/HCPCS: 36415; 80053; 80061; 81003; 85025

== ENCOUNTER 2024-06-28 09:28 | Outpatient (AMB) | payer MEDICARE, SELFPAY ==
--- NOTE | 2024-06-28 09:58 | A.OFFPC_ITS ---
Vital Signs 06/28/24 09:59 Height 5 ft 8.5 in Weight 178 lb BMI 26.7 BP 144/70 H Blood Pressure Location Lt brachial Position Sitting Pulse 62 Pulse Source Pulse Oximeter Temp 97.8 F Temp Source Temporal Artery Scan Pulse Oximetry (%) 94 Oxygen Delivery Method Room Air Intake Visit Reasons: 3 Month F/U - see comments Product Line Manager Required: No Accompanied by: Self / Same As Patient Allergies No Known Allergies Allergy (Verified 06/28/24 10:16) Medication List - Last Reconciled 06/28/24 by Yo Waggoner MD albuterol sulfate 90 mcg/actuation (ProAir HFA) 2 puffs inhalation Q6H PRN aspirin 81 mg PO DAILY budesonide 0.5 mg (4 mL) inhalation BID 30 days cholecalciferol (vitamin D3) (Vitamin D3) 25 mcg PO DAILY clotrimazole 1% 1 appl topical BID 4 weeks fluticasone propion-salmeterol 113-14 mcg/actuation 1 inh PO BID garlic 1,000 mg PO DAILY ipratropium-albuterol 0.5 mg-3 mg(2.5 mg base)/3 mL 3 mL inhalation Q6H PRN 30 days lisinopril 30 mg PO DAILY musichuwrhgp-xksypwxd-nzrftq 1 tab PO DAILY omega 7-wel-cyv-fish oil 1,200 (144-216) mg (Fish Oil) 1 cap PO DAILY omeprazole 20 mg PO DAILY rosuvastatin 5 mg PO DAILY triamcinolone acetonide 0.5% 1 appl topical BID Tobacco use date assessed: 05/10/24 Fall risk assessment: No Falls in past year Last assessed Fall Risk: 06/28/24 Dental Screening Dental Screen Date: 05/10/24 [facility] Medical History COPD (chronic obstructive pulmonary disease) History of smoking at least 1 pack per day for at least 30 years COPD (chronic obstructive pulmonary disease) Wheezing Acute bronchitis GERD (gastroesophageal reflux disease) Erectile dysfunction History of ETOH abuse Barretts esophagus Hyperlipidemia Hypertension Surgical History History of cranial surgery History of appendectomy History of tonsillectomy History of umbilical hernia repair History of vasectomy History of left inguinal hernia repair History of esophagogastroduodenoscopy (EGD) Hx of colonoscopy Family History Father No problems noted. Mother Cancer Social History Housing: House Alcohol intake: current Alcohol intake frequency: a few times a month Alcohol type: beer Comment: once Q 6 months 1 beer Patient Tobacco Use Status: Former Tobacco user Tobacco use type: Cigarette Years Smoked: [id number] e-Cigarette/Vaping Use: Never Used Second Hand Smoke Exposure: No service: No Current occupational status: retired Cognitive needs: No Hearing needs: No Vision needs: Yes (glasses) Questionnaire Thrive Questionnaire Date Thrive assessed: 05/10/24 AUDIT C Alcohol Use Questionnaire (AUDIT-C) 2. How many drinks containing alcohol do you have on a typical day when you are drinking?: 1 or 2 3. How often do you have six or more drinks on one occasion?: Never Total Score: 0 CORINNE-7 AMB Questionnaire CORINNE-7 Date CORINNE - 7 assessed: 05/10/24 Source: Developed by Drs. Deandre Toth, Anabel He, Eligio Cruz and colleagues, with an educational lamonte from [email or web address]. Physical exam (Primary Care) Vital Signs: Last Vital Signs Temp 97.8 F 06/28/24 09:59 Pulse 62 06/28/24 09:59 BP 144/70 H 06/28/24 09:59 Pulse Ox 94 06/28/24 09:59 Oxygen Delivery Method Room Air 06/28/24 09:59 BMI result Body Mass Index 26.7 Tobacco/Smoking Status: Tobacco use Status Tobacco use date assessed 05/10/24 06/28/24 09:59 Patient Tobacco Use Status Former Tobacco user 06/28/24 09:59 Tobacco use type Cigarette 06/28/24 09:59 e-Cigarette/Vaping Use Never Used 06/28/24 09:59 Thrive Assessment: Date of Thrive Assessment Date Thrive assessed 05/10/24 06/28/24 09:59 Const General: alert; No acute distress Eyes Conjunctivae: conjunctivae normal Resp Auscultation: clear to auscultation bilaterally Cardio Rate: regular rate Rhythm: regular rhythm GI Inspection: Yes normal to inspection Extrem General: Yes normal to inspection and No edema Coding Level of Care Code Est Pt Level 4 (77673) Diagnoses Essential hypertension I10 Hypertension type: essential hypertension Pure hypercholesterolemia E78.00 Hyperlipidemia type: pure hypercholesterolemia 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 K22.70 Garner's esophagus type: without dysplasia Stage 3a chronic kidney disease N18.31 Chronic kidney disease stage: stage 3 (moderate) Chronic kidney disease stage 3 subtype: stage 3a (GFR 45-59) Pulmonary emphysema, unspecified emphysema type J43.9 COPD type: emphysema Emphysema type: unspecified Assessment & Plan Assessment & Plan (1) Hypertension: Code(s): I10 - Essential (primary) hypertension Category: Medical Qualifiers: Hypertension type: essential hypertension Qualified Code(s): I10 - Essential (primary) hypertension Plan: Continue with blood pressure medication. Decrease salt intake and exercise due to increase in renal function hydrochlorothiazide has been taken off. Aubree nopril increased to 30 mg once a day (2) Hyperlipidemia: Code(s): E78.5 - Hyperlipidemia, unspecified Category: Medical Qualifiers: Hyperlipidemia type: pure hypercholesterolemia Qualified Code(s): E78.00 - Pure hypercholesterolemia, unspecified Plan: Avoid fried foods, chicken skin, eggs, butter margarine, pastries and meat. Be it pork or beef they have a lot of cholesterol LDL goal of less than 100 and triglyceride of less than 150 on rosuvastatin 5 mg once a day (3) Garner's esophagus: Code(s): K22.70 - 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 Category: Medical Qualifiers: Garner's esophagus type: without dysplasia Qualified Code(s): K22.70 - 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 Plan: Avoid the foods that causes that usually spicy foods, tomato products, juices, coffee, soda and foods that your sensitive to. After eating do not lie down, allow 3-4 hours before in lie down. And keep the head of bed above 30 degrees to avoid the acid from going up. (4) CKD (chronic kidney disease): Code(s): N18.9 - Chronic kidney disease, unspecified Category: Medical Qualifiers: Chronic kidney disease stage: stage 3 (moderate) Chronic kidney disease stage 3 subtype: stage 3a (GFR 45-59) Qualified Code(s): N18.31 - Chronic kidn ey disease, stage 3a Plan: Keep well hydrated continue with blood pressure control (5) COPD (chronic obstructive pulmonary disease): Comment: As per Pulmonary function test he has Moderately severe obstructive airway disorder. Remains well controlled and stable with AirDuo, 113-14 1 inhalation b.i.d. Code(s): J44.9 - Chronic obstructive pulmonary disease, unspecified Category: Medical Qualifiers: COPD type: emphysema Emphysema type: unspecified Qualified Code(s): J43.9 - Emphysema, unspecified Plan: On albuterol inhaler Plan History of Present Illness The patient is an 79-year-old male presenting with a persistent cough and for hypertension management. He is being managed for essential hypertension, hyperlipidemia, Garner?s esophagus, chronic kidney disease stage 3B, hypertensive nephrosclerosis, COPD, and BPH. The patient experienced issues of elevated blood pressure upon his last evaluation in May 2024, prompting a change in his antihypertensive regime including the discontinuation of hydrochlorothiazide due to iatrogenic worsening of renal function, and an increase in lisinopril to 30 mg daily. Discontinuation of hydrochlorothiazide stabilized renal function. Current laboratory findings indicate adequate control of lipid levels and overall stable renal function. The patient's condition is complicated by the need for stringent blood pressure control without incurring renal impairment. Health Maintenance - Blood pressure management with increased lisinopril to 30 mg daily. - Hyperlipidemia managed with rosuvastatin 5 mg daily, maintaining LDL < 100 mg/dL and triglycerides < 150 mg/dL. - Advised to maintain a diet low in sodium for blood pressure management. - Discussed avoidance of red-colored foods in preparation for potential diagnostic interventions, as applicable. - Advised regular follow-ups for evaluation of blood pressure control. Social History - Former smoker. - Diet regulated by spouse, specifically low in sodium. Review of Systems - Respiratory: Reports persistent cough. Physical Exam Results - Labs: Blood count normal, electrolytes normal, renal function stable, sugar normal, liver function normal, LDL cholesterol 71 mg/dL. Plan The patient's hypertension will be managed with an increased dose of lisinopril at 30 mg daily, focusing on controlling blood pressure while monitoring renal function. Continued use of rosuvastatin to maintain cholesterol levels is advised, along with adherence to a low-sodium diet. Discussions included clarifications about diet regarding red-colored foods, pertinent to diagnostic procedure preparations. The patient was instructed on self-monitoring blood pressure at home and to report any persistently high readings. Follow-up consultation is necessary to assess the ongoing management and to adjust treatment as needed. Patient was informed and verbally consented to the use of an ambient scribe for clinic note documentation during this visit. Discussion Notes During the consultation, I addressed the patient's concerns regarding blood pressure management and recent cough symptoms. We discussed the decision to increase lisinopril for better control of hypertension while being mindful of renal function. The necessity of stopping hydrochlorothiazide was explained in detail, given its effect on kidney function. The patient was advised to maintain current dietary habits, specifically avoiding high sodium intake. Regular monitoring of blood pressure at home has been emphasized, along with the importance of reporting any significantly elevated readings. I clarified dietary restrictions regarding red-colored foods, indicating that avoidance is typically limited to preparations for procedures like colonoscopies, not routinely requ ired otherwise. Patient Instructions - Continue lisinopril 30 mg once daily. - Resume rosuvastatin 5 mg once daily. - Maintain a low-sodium diet. - Monitor blood pressure regularly at home. - Report any blood pressure readings above 160/100 mmHg. - Follow-up in December; blood work will be completed prior to the appointment. - Stay updated with health screenings and vaccinations. Orders: Orders Complete Blood Count Auto Diff 6 Months N18.31 - Chronic kidney disease, stage 3a Comprehensive Met. Panel 6 Months N18.31 - Chronic kidney disease, stage 3a Free T4 (Free Thyroxine) 6 Months N18.31 - Chronic kidney disease, stage 3a Lipid Panel 6 Months E78.00 - Pure hypercholesterolemia, unspecified, N18.31 - Chronic kidney disease, stage 3a Thyroid Stimulating Hormone 6 Months N18.31 - Chronic kidney disease, stage 3a UA CC w/rflx Micro + Cult 6 Months N18.31 - Chronic kidney disease, stage 3a, R30.0 - Dysuria Vitamin B12 and Folate 6 Months N18.31 - Chronic kidney disease, stage 3a
[2024-06-28 09:59] VITALS: BP 144/70; PULSE 62; TEMP 36.6; O2SAT 94; BMI 26.7
== END 2024-06-28 10:52 | disposition home or self-care (01) ==
LOC: HO.HMCH 09:28
PROVIDERS: PCP Internal Medicine; Visit Provider Internal Medicine
DX: I12.9 Hypertensive chronic kidney disease with stage 1 through stage 4 chronic kidney disease, or unspecified chronic kidney disease (principal); N18.31 Chronic kidney disease, stage 3a; J43.9 Emphysema, unspecified; E78.00 Pure hypercholesterolemia, unspecified; K22.70 Barrett's esophagus without dysplasia

== ENCOUNTER → 2024-06-28 09:28 | Outpatient (BNVA) | payer MEDICARE, SELFPAY | PROVIDERS: PCP Internal Medicine; Visit Provider Internal Medicine | DX: E78.00 Pure hypercholesterolemia, unspecified (principal); K22.70 Barrett's esophagus without dysplasia; I12.9 Hypertensive chronic kidney disease with stage 1 through stage 4 chronic kidney disease, or unspecified chronic kidney disease; N18.31 Chronic kidney disease, stage 3a; J43.9 Emphysema, unspecified | CPT/HCPCS: 99212 ==

== ENCOUNTER 2024-07-29 09:18 | Outpatient (AMB) | payer MEDICARE, SELFPAY ==
[2024-07-29 09:23] VITALS: BP 142/70; PULSE 62; O2SAT 97; BMI 27.2
--- NOTE | 2024-07-29 09:23 | A.OFFVIS_ITS ---
Vital Signs 07/29/24 09:23 Height 5 ft 8.5 in Weight 181 lb 14.102 oz BMI 27.2 BP 142/70 H Blood Pressure Location Lt brachial Position Sitting Pulse 62 Pulse Source Pulse Oximeter Pulse Oximetry (%) 97 Oxygen Delivery Method Room Air Intake Visit Reasons: COPD Intake Note: pt is here for follow up and states he is feeling good, he is using inhalers and nebulizer Credit Card Clerk Required: No Allergies No Known Allergies Allergy (Verified 07/29/24 09:32) Medication List - Last Reconciled 07/29/24 by Jody Wade MD albuterol sulfate 90 mcg/actuation (ProAir HFA) 2 puffs inhalation Q6H PRN aspirin 81 mg PO DAILY budesonide 0.5 mg (4 mL) inhalation BID 30 days cholecalciferol (vitamin D3) (Vitamin D3) 25 mcg PO DAILY clotrimazole 1% 1 appl topical BID 4 weeks fluticasone propion-salmeterol 113-14 mcg/actuation 1 inh PO BID garlic 1,000 mg PO DAILY ipratropium-albuterol 0.5 mg-3 mg(2.5 mg base)/3 mL 3 mL inhalation Q6H PRN 30 days lisinopril 30 mg PO DAILY puilffeztguk-ihbaqegl-pckpcj 1 tab PO DAILY omega 7-oce-nsr-fish oil 1,200 (144-216) mg (Fish Oil) 1 cap PO DAILY omeprazole 20 mg PO DAILY rosuvastatin 5 mg PO DAILY triamcinolone acetonide 0.5% 1 appl topical BID HPI HPI COPD: Details: This 79 years old very pleasant gentleman is here for 6 months follow-up for his COPD. Because he was not able to get any product of Advair, we had prescribed him budesonide solution to use in the nebulizer twice a day. For later on he was able to get fluticasone-salmeterol inhaler and he has been using it twice a day. So he has not needed to use budesonide solution in the nebulizer he also has ipratropium-albuterol solution to use in the nebulizer in case he needs. He is doing very well at this time and there is no acute cough wheezing or any increase in the shortness of breath. [facility] Medical History COPD (chronic obstructive pulmonary disease) History of smoking at least 1 pack per day for at least 30 years COPD (chronic obstructive pulmonary disease) Wheezing Acute bronchitis GERD (gastroesophageal reflux disease) Erectile dysfunction History of ETOH abuse Barretts esophagus Hyperlipidemia Hypertension Surgical History History of cranial surgery History of appendectomy History of tonsillectomy History of umbilical hernia repair History of vasectomy History of left inguinal hernia repair History of esophagogastroduodenoscopy (EGD) Hx of colonoscopy Family History Father No problems noted. Mother Cancer Social History Housing: House Alcohol intake: current Alcohol intake frequency: a few times a month Alcohol type: beer Comment: once Q 6 months 1 beer Patient Tobacco Use Status: Former Tobacco user Tobacco use type: Cigarette Years Smoked: [id number] e-Cigarette/Vaping Use: Never Used Second Hand Smoke Exposure: No service: No Current occupational status: retired Cognitive needs: No Hearing needs: No Vision needs: Yes (glasses) Review of Systems Const All systems reviewed & are unremarkable except as noted in HPI and below Eyes Reports no additional complaints ENT Reports no additional complaints Card Denies chest pain, Denies irregular heart rhythm and Denies leg edema Resp Reports as per HPI GI Reports heartburn (Controlled with medication) Reports no additional complaints Musc Reports no additional complaints Skin/Breast Reports system reviewed and no additional complaints, except as documented Neuro Reports no additional complaints Psych Reports no additional complaints Physical Exam Vital Signs: Last Vital Signs Pulse 62 07/29/24 09:23 BP 142/70 H 07/29/24 09:23 Pulse Ox 97 07/29/24 09:23 Oxygen Delivery Method Room Air 07/29/24 09:23 BMI result Body Mass Index 27.2 Const General: healthy appearing, comfortable, no acute distress, alert and awake Orientation/consciousness: patient oriented x3 HEENT Head: Yes normal to inspection General nose exam: No nasal polyps present and No nasal discharge present Face and sinus: Yes sinuses nontender Mouth: oropharynx normal Throat: Yes posterior oropharynx normal Eyes General: appearance normal, both eyes and all related structures Neck Neck: Yes normal visual inspection, Yes no lymphadenopathy, Yes trachea midline and Yes no JVD Thyroid: Thyroid normal Chest Chest palpation & inspection: normal inspection of the chest, normal palpation of entire chest wall and no tenderness Resp Other: Percussion note resonant, has good breath sounds on both sides, slightly distant with prolonged expiratory phase. No wheezes rhonchi or crepitations are heard. Cardio Palpation: normal PMI Rate: regular rate Rhythm: regular rhythm Heart sounds: no gallops and no murmurs Peripheral pulses: Peripheral pulses 2+ throughout GI Palpation (GI): Soft to palpation, nontender, No hepatosplenomegaly present and no masses Auscultation: normal bowel sounds Back/Spine/Pelvis Thoracic/Lumbar Spine: thoracic and lumbar spine normal to inspection Skin General skin exam: no rashes or lesions noted Neuro General: patient oriented x3 and no focal motor deficits Cranial nerves: Yes CN's II-XII intact bilaterally Extrem General: Yes normal to inspection, Yes no clubbing, cyanosis or edema and Yes no calf tenderness Psych Appearance: grossly normal and well kempt Speech and movement: Normal speech and movement present Assessment & Plan Assessment & Plan (1) COPD (chronic obstructive pulmonary disease): Comment: As per Pulmonary function test he has Moderately severe obstructive airway disorder. Remains well controlled and stable with AirDuo, 113-14 1 inhalation b.i.d. Code(s): J44.9 - Chronic obstructive pulmonary disease, unspecified Category: Medical Qualifiers: COPD type: emphysema Emphysema type: unspecified Qualified Code(s): J43.9 - Emphysema, unspecified Plan: Advised to continue using airduo 113-14 1 inhalation b.i.d.. Albuterol HFA 2 puffs Q 6 hours p.r.n. . He will keep budesonide solution as well as ipratropium and albuterol solution to use in the nebulizer as a backup. (2) History of smoking at least 1 pack per day for at least 30 years: Comment: He smoked for 40 years, almost 2 packs a day. But quit 20 years ago. Code(s): Z87.891 - Personal history of nicotine dependence Category: Social Hx Plan: Does not need CT scan monitoring Coding Level of Care Code Est Pt Level 3 (60629) Diagnoses Pulmonary emphysema, unspecified emphysema type J43.9 COPD type: emphysema Emphysema type: unspecified History of smoking at least 1 pack per day for at least 30 years Z87.891
--- OUTSIDE RECORDS SUMMARY | 2024-07-29 10:12 | XMS_ITS | Clinical Summary ---
Author Organization [facility], Address [address] [place] [address] [place] [address] Phone Care Team Providers Care Sourcing Internship Name Role Phone Yo Waggoner MD Primary Care Provider [phone] Social History Tobacco Use Types Packs/Day Years Used Date Smoking Tobacco: Never Assessed Sex and Gender Information Value Date Recorded Sex Assigned at Not on file Legal Sex Male 12:57 PM EST Gender Identity Not on file Sexual Orientation Not on file Plan of Treatment Health Maintenance Due Date Last Done Comments Pneumococcal Vaccine: 50+ Ye ars (1 of 1 - PCV) 01/13/1994 Influenza Vaccine (Season Ended) 2024 Hepatitis B Vaccine Aged Out No longe r eligible based on patient's age to complete this topic Insurance [facility] Medicare Care Teams Sourcing Internship Relationship Specialty Start Date End Date Yo Waggoner MD [facility] [place] [address] [place], [place] PCP - General Internal Medicine 04/08/24
--- OUTSIDE RECORDS SUMMARY | 2024-07-29 10:12 | XMS_ITS | Encounter Summary ---
Author Organization [facility] Address [address] [place] [address] Phone Care Team Providers Care Sheet Metal Erector Name Role Phone Yo Waggoner MD Primary Care Provider [phone] Encounter Details Date Type Department Care Team (Late st Contact Info) Description 04/12/2024 Documentation Only [facility], [address] [place] [address] Renee Lao [place] [address] [place] [address] Social History Tobacco Use Types [...] on filedocumented in this encounter Care Teams Sheet Metal Erector Relationship Specialty Start Date End Date Yo Waggoner MD [facility] [address] [place], [place] PCP - General Internal Medicine 04/08/24 documented as of this encounter
--- OUTSIDE RECORDS SUMMARY | 2024-07-29 10:12 | XMS_ITS | Encounter Summary ---
Author Organization [facility] Address [address] [place] [address] Phone Care Team Providers Care Roll Out Manager Name Role Phone Yo Waggoner MD Primary Care Provider [phone] Encounter Details Date Type Department Care Team (Late st Contact Info) Description 04/08/2024 Documentation Only [facility] [place], [address] [place] [address] Renee Lao [place] [address] [place] [address] Social History Tobacco Use Types [...] on filedocumented in this encounter Care Teams Roll Out Manager Relationship Specialty Start Date End Date Yo Waggoner MD [facility] [address] [place], [place] PCP - General Internal Medicine 04/08/24 documented as of this encounter
== END 2024-07-29 09:43 | disposition home or self-care (01) ==
LOC: HO.HPS 09:18
PROVIDERS: PCP Internal Medicine; Visit Provider Internal Medicine
DX: J43.9 Emphysema, unspecified (principal); Z87.891 Personal history of nicotine dependence
CPT/HCPCS: 99213

== ENCOUNTER → 2024-07-29 09:18 | Outpatient (BNVA) | payer MEDICARE, SELFPAY | PROVIDERS: PCP Internal Medicine; Visit Provider Internal Medicine | DX: J43.9 Emphysema, unspecified (principal); Z87.891 Personal history of nicotine dependence | CPT/HCPCS: 99212 ==

== ENCOUNTER 2024-08-29 09:11 | Outpatient (REF) | payer MEDICARE, SELFPAY ==
--- OUTSIDE RECORDS SUMMARY | 2024-08-29 09:36 | XMS_ITS | Clinical Summary ---
Author Organization [facility], Address [address] [place] [address] [place] [address] Phone Care Team Providers Care Union Laborer Name Role Phone Yo Waggoner MD Primary Care Provider [phone] Social History Tobacco Use Types Packs/Day Years [...] patient's age to complete this topic Insurance [facility] Medicare Care Teams Union Laborer Relationship Specialty Start Date End Date Yo Waggoner [facility] [place] [address] [place], [place] PCP - General Internal Medicine 04/08/24
[2024-08-29 14:01] LABS: Anion Gap 9 (12-20); Blood Urea Nitrogen 20 mg/dL (9-16); Calcium 9.3 mg/dL (8.4-10.2); Carbon Dioxide 30 mmol/L (22-29); Chloride 106 mmol/L (96-108); Estimated Glomerular Filt Rate 53; Glucose Random 93 mg/dL (60-115); Potassium 4.7 mmol/L (3.3-5.1); Sodium 140 mmol/L (135-145)
== END 2024-08-29 09:12 | disposition home or self-care (01) ==
LOC: HO.HMGCLDS 09:11
PROVIDERS: Internal Medicine Hypertension Specialist; PCP Internal Medicine; Visit Provider Internal Medicine
DX: N28.9 Disorder of kidney and ureter, unspecified (principal)
CPT/HCPCS: 36415; 80048

== ENCOUNTER 2024-09-05 09:18 | Outpatient (AMB) | payer MEDICARE, SELFPAY ==
[2024-09-05 09:24] VITALS: BP 160/64; PULSE 66; O2SAT 99; BMI 26.5
--- NOTE | 2024-09-05 09:24 | HO.NEPHOV ---
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 Accompanied by: Self / Same As Patient Allergies No Known Allergies Allergy (Verified 09/05/24 09:26) Medication List - Last Reconciled 09/05/24 by Randall Hendrickson MD albuterol sulfate 90 mcg/actuation (ProAir HFA) 2 puffs inhalation Q6H PRN aspirin 81 mg PO DAILY budesonide 0.5 mg (4 mL) inhalation BID 30 days cholecalciferol (vitamin D3) (Vitamin D3) 25 mcg PO DAILY clotrimazole 1% 1 appl topical BID 4 weeks fluticasone propion-salmeterol 113-14 mcg/actuation 1 inh PO BID 90 days garlic 1,000 mg PO DAILY ipratropium-albuterol 0.5 mg-3 mg(2.5 mg base)/3 mL 3 mL inhalation Q6H PRN 30 days lisinopril 20 mg PO DAILY zwhocxfphytf-xzrwpqwc-dkxzxi 1 tab PO DAILY omega 6-jaj-pzd-fish oil 1,200 (144-216) mg (Fish Oil) 1 cap PO DAILY omeprazole 20 mg PO DAILY rosuvastatin 5 mg PO DAILY triamcinolone acetonide 0.5% 1 appl topical BID HPI Comments Details: 79-year-old man with a history of longstanding hypertension. He has been on hydrochlorothiazide and lisinopril. Blood pressure has been reasonably stable. History of COPD and currently on inhalers. He is serum creatinine has been around 1.3 mg/dL for the last few years. However in September of 2023 creatinine bumped up to 1.74 Renal ultrasonogram done at the time was unremarkable. In March 2024 serum creatinine was 1.68 and hence this consultation. He has been drinking adequate fluids. He denies any urinary symptoms. No rash no weight loss. No edema. No history of smoking at present history of smoking several years ago. No history of alcohol abuse. 05/30/24 After stopping HCTZ, cr is down to 0.85 Home BP 130- 145 Systolic 6/5/25 79-year-old male presenting with hypertension management and evaluation of kidney function. He reports consistent daily blood pressure monitoring at home, noting blood pressure fluctuations between 147/111 mmHg, typically under 140 mmHg when at home, but higher when measured at clinics, likely due to appointment-related stress. The patient is taking Lisinopril, which was increased from 20 mg to 30 mg six months ago. Diet management includes reduced salt intake. Chronic Kidney Disease has been tracked regularly, with a current GFR of approximately 53%. There has been a general trend of kidney function improvement over recent months but concerns remain about current medication and its effects on renal health. No urinary issues or leg swelling reported. [facility] Medical History COPD (chronic obstructive pulmonary disease) History of smoking at least 1 pack per day for at least 30 years COPD (chronic obstructive pulmonary disease) Wheezing Acute bronchitis GERD (gastroesophageal reflux disease) Erectile dysfunction History of ETOH abuse Barretts esophagus Hyperlipidemia Hypertension Surgical History History of cranial surgery History of appendectomy History of tonsillectomy History of umbilical hernia repair History of vasectomy History of left inguinal hernia repair History of esophagogastroduodenoscopy (EGD) Hx of colonoscopy Family History Father No problems noted. Mother Cancer Social History Housing: House Alcohol intake: current Alcohol intake frequency: a few times a month Alcohol type: beer Comment: once Q 6 months 1 beer Patient Tobacco Use Status: Former Tobacco user Tobacco use type: Cigarette Years Smoked: [id number] e-Cigarette/Vaping Use: Never Used Second Hand Smoke Exposure: No service: No Current occupational status: retired Cognitive needs: No Hearing needs: No Vision needs: Yes (glasses) Physical Exam Vital Signs: Last Vital Signs Pulse 66 09/05/24 09:24 BP 160/64 H 09/05/24 09:24 Pulse Ox 99 09/05/24 09:24 Oxygen Delivery Method Room Air 09/05/24 09:24 BMI result Body Mass Index 26.5 Results Reviewed Nephrology Results: Hgb 15.4 g/dl (14.0-18.0) 06/22/24 WBC 7.4 X10*3/uL (4.8-10.8) 06/22/24 Plt Count 247 X10*3/uL (160-400) 06/22/24 Sodium 140 mmol/L (135-145) 08/29/24 Potassium 4.7 mmol/L (3.3-5.1) 08/29/24 Chloride 106 mmol/L (96-108) 08/29/24 Carbon Dioxide 30 mmol/L (22-29) H 08/29/24 BUN 20 mg/dL (9-16) H 08/29/24 Creatinine 1.30 mg/dL (0.5-1.4) 08/29/24 Calcium 9.3 mg/dL (8.4-10.2) 08/29/24 PTH Intact 74.4 pg/mL (8.7-77.1) 05/11/24 Urine Protein Negative mg/dL (Neg-Trace) 06/22/24 Urine Creatinine 72.70 mg/dL 05/11/24 Assessment & Plan Assessment & Plan (1) Renal insufficiency: Code(s): N28.9 - Disorder of kidney and ureter, unspecified Category: Medical Plan 79-year-old man with chronic kidney disease. Stage IIIB CKD. Differential diagnosis would include hypertensive nephrosclerosis. Recent ultrasonogram did not reveal any obstruction. No evidence of glomerular nephritis or interstitial disease- Urine is bland Superimposed BRIGITTE He had a component of hypoperfusion with a combination of HAIR inhibitors and diuretics. Cr improved after stopping HCTZ Cr is up again with high dose of Lisinopril ( 30 mg) Plan - Decrease Lisinopril to 20 mg daily. - Start Amlodipine 2.5 mg daily. - Monitor blood pressure at home daily. - Maintain a low-salt diet. - Ensure adequate hydration. - Return for blood tests in three months or seek care if conditions worsen. I have reassured him and answered all his questions. Orders: Orders Basic Metabolic Panel 3 Months N28.9 - Disorder of kidney and ureter, unspecified Medications: New amlodipine 2.5 mg PO DAILY 90 tabs 1RF Changed From lisinopril 30 mg PO DAILY 90 tabs 1RF E78.00 - Pure hypercholesterolemia, unspecified To lisinopril 20 mg PO DAILY E78.00 - Pure hypercholesterolemia, unspecified Coding Level of Care Code Est Pt Level 4 (88285) Diagnoses Renal insufficiency N28.9
--- OUTSIDE RECORDS SUMMARY | 2024-09-05 10:06 | XMS_ITS | Clinical Summary ---
Author Organization [facility], Address [address] [place] [address] [place] [address] Phone Care Team Providers Care Heel Sprayer Name Role Phone Yo Waggoner MD Primary Care Provider [phone] Social History Tobacco Use Types Packs/Day Years [...] patient's age to complete this topic Insurance [facility] Medicare Care Teams Heel Sprayer Relationship Specialty Start Date End Date Yo Waggoner MD [facility] [address] [place], [place] PCP - General Internal Medicine 04/08/24
== END 2024-09-05 09:53 | disposition home or self-care (01) ==
LOC: HO.HKA 09:19
PROVIDERS: PCP Internal Medicine; Visit Provider Internal Medicine Hypertension Specialist
DX: N28.9 Disorder of kidney and ureter, unspecified (principal)
CPT/HCPCS: 99214

== ENCOUNTER → 2024-09-05 09:18 | Outpatient (BNVA) | payer MEDICARE, SELFPAY | PROVIDERS: PCP Internal Medicine; Visit Provider Internal Medicine Hypertension Specialist | DX: N28.9 Disorder of kidney and ureter, unspecified (principal) | CPT/HCPCS: 99212 ==

== ENCOUNTER 2024-11-15 10:31 | Outpatient (AMB) | payer MEDICARE, SELFPAY ==
--- NOTE | 2024-11-15 10:32 | A.OFFPC_ITS ---
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 per policy Accompanied by: Self / Same As Patient Allergies No Known Allergies Allergy (Verified 11/15/24 10:32) Medication List - Last Reconciled 11/15/24 by Yo Waggoner MD albuterol sulfate 90 mcg/actuation (ProAir HFA) 2 puffs inhalation Q6H PRN amlodipine 2.5 mg PO DAILY aspirin 81 mg PO DAILY budesonide 0.5 mg (4 mL) inhalation BID 30 days cholecalciferol (vitamin D3) (Vitamin D3) 25 mcg PO DAILY clotrimazole 1% 1 appl topical BID 4 weeks fluticasone propion-salmeterol 113-14 mcg/actuation 1 inh PO BID 90 days garlic 1,000 mg PO DAILY ipratropium-albuterol 0.5 mg-3 mg(2.5 mg base)/3 mL 3 mL inhalation Q6H PRN 30 days lisinopril 20 mg PO DAILY ecdxowwcygjd-jfmthwkw-hpmbne 1 tab PO DAILY nirmatrelvir-ritonavir 300 mg (150 mg x 2)-100 mg (Paxlovid) take TWO 150 mg tablets of nirmatrelvir with ONE 100 mg tablet of ritonavir twice daily for 5 days PO omega 0-ita-avw-fish oil 1,200 (144-216) mg (Fish Oil) 1 cap PO DAILY omeprazole 20 mg PO DAILY rosuvastatin 5 mg PO DAILY triamcinolone acetonide 0.5% 1 appl topical BID Tobacco use date assessed: 11/15/24 Fall risk assessment: No Falls in past year Last assessed Fall Risk: 11/15/24 Dental Screening Dental Screen Date: 05/10/24 HPI COVID pos HPI Details was on vacation, coming home last monday cold, took test yesterday. feeling good. [facility] Medical History COPD (chronic obstructive pulmonary disease) History of smoking at least 1 pack per day for at least 30 years COPD (chronic obstructive pulmonary disease) Wheezing Acute bronchitis GERD (gastroesophageal reflux disease) Erectile dysfunction History of ETOH abuse Barretts esophagus Hyperlipidemia Hypertension Surgical History History of cranial surgery History of appendectomy History of tonsillectomy History of umbilical hernia repair History of vasectomy History of left inguinal hernia repair History of esophagogastroduodenoscopy (EGD) Hx of colonoscopy Family History Father No problems noted. Mother Cancer Social History Housing: House Alcohol intake: current Alcohol intake frequency: a few times a month Alcohol type: beer Comment: once Q 6 months 1 beer Patient Tobacco Use Status: Former Tobacco user Tobacco use type: Cigarette Years Smoked: [id number] e-Cigarette/Vaping Use: Never Used Second Hand Smoke Exposure: Yes service: No Current occupational status: retired Cognitive needs: No Hearing needs: No Vision needs: Yes (glasses) Questionnaire Thrive Questionnaire Date Thrive assessed: 05/10/24 CORINNE-7 AMB Questionnaire CORINNE-7 Date CORINNE - 7 assessed: 05/10/24 Source: Developed by Drs. Deandre Toth, Anabel He, Eligio Cruz and colleagues, with an educational lamonte from [employer]. Physical exam (Primary Care) Tobacco/Smoking Status: Tobacco use Status Tobacco use date assessed 11/15/24 11/15/24 10:33 Patient Tobacco Use Status Former Tobacco user 11/15/24 10:33 Tobacco use type Cigarette 11/15/24 10:33 e-Cigarette/Vaping Use Never Used 11/15/24 10:33 Thrive Assessment: Date of Thrive Assessment Date Thrive assessed 05/10/24 11/15/24 10:33 Telehealth Telehealth Telehealth Platform: Telephone Location of provider rendering services: practice address Location of patient: address on file Patient Identification confirmed using: Name, : Yes Telehealth method: voice only Patient verbally consented to treatment: Yes Patient verbally consented to billing insurance company: Yes Patient informed of any privacy concerns related to visit: Yes Coding Level of Care Code New Pt Level 4 (62319) Diagnoses COVID-19 virus infection U07.1 Assessment & Plan Assessment & Plan (1) COVID-19 virus infection: Comment: 11/11/2021, as mentioned in the history he did have recent COVID infection but recovered at home uneventfully. He is up-to-date with COVID vaccine , Advise that he should have flu vaccine. Also advised to get the new Bivalent COVID vaccine when available. 11/14/2024 Code(s): U07.1 - COVID-19 Category: Medical Plan: For the sore throat can take Cepacol lozenges, discussed about Delsym to help with dry cough so she can rest and advised to increase oral fluids. Patient also can take Tylenol for chills and fever. Antiviral sent in advised to stop cholesterol medication and garlic pills while on the antiviral. Plan History of Present Illness The patient is an 79-year-old male presenting with COVID-19. He reports that he recently returned from a vacation and subsequently developed a cold on Monday, for which he took Mucinex. His tested positive for COVID-19, prompting him to take a test, which also returned positive. The patient states that he feels well and is not experiencing significant symptoms, unlike his , who is more affected by the illness. He has a history of COVID-19 infection a couple of years ago, which he describes as not a major issue at that time. The patient has a medical history significant for hypertension, hypercholesterolemia, GERD, Garner's esophagus, chronic kidney disease, COPD, and BPH. He is currently managing these conditions with medication, including rosuvastatin, which he has been advised to hold off while taking the antiviral medication for COVID-19. Review of Systems - General: Reports feeling well, denies significant symptoms. - Respiratory: Denies cough, reports previous use of Mucinex for cold symptoms. Plan The patient was advised to hold off on taking rosuvastatin and garlic pills while on the antiviral medication for COVID-19, which is to be taken for five days. He was instructed to maintain adequate hydration and to use a mask when going out to prevent spreading the infection. If he experiences a sore throat, he can use cepacol lozenges, and if he develops a dry cough, Delsym is recommended. The antiviral prescription was sent to [facility] [address], and he was advised to monitor his symptoms and seek further medical attention if necessary. Patient was informed and verbally consented to the use of an ambient scribe for clinic note documentation during this visit. Discussion Notes I discussed with the patient the option of starting antiviral medication to potentially shorten the duration of his COVID-19 infection. We talked about the importance of wearing a mask to prevent transmission to others and maintaining hydration. I advised him to hold off on taking rosuvastatin and garlic pills during the antiviral treatment period. The prescription was sent to [facility], and I instructed him to monitor his symptoms and seek further care if needed. Patient Instructions - Hold off on taking rosuvastatin and garlic pills while on antiviral medicat ion. - Drink plenty of fluids to stay hydrated. - Wear a mask when going out to prevent spreading COVID-19. - Use cepacol lozenges for sore throat and Delsym for dry cough if needed. - shrink pit supervisor the antiviral prescription from [facility] on [address] - Monitor symptoms and seek medical attention if they worsen. Medications: New nirmatrelvir-ritonavir 300 mg (150 mg x 2)-100 mg (Paxlovid) take TWO 150 mg tablets of nirmatrelvir with ONE 100 mg tablet of ritonavir twice daily for 5 days PO 30 ea 0RF U07.1 - COVID-19
--- OUTSIDE RECORDS SUMMARY | 2024-11-15 10:36 | XMS_ITS | Clinical Summary ---
Author Organization [facility], Address [address] [place] [address] [place] [address] Phone Care Team Providers Care Subsorter Name Role Phone Yo Waggoner MD Primary Care Provider [phone] Social History Tobacco Use Types Packs/Day Years [...] of 1 - PCV) 01/13/1994 Influenza Vaccine (#1) 2024 Hepatitis B Vaccine Aged Out No longe r eligible based on patient's age to complete this topic Insurance [facility] Medicare Care Teams Subsorter Relationship Specialty Start Date End Date Yo Waggoner [facility] [place] [address] [place], [place] PCP - General Internal Medicine 04/08/24
--- OUTSIDE RECORDS SUMMARY | 2024-11-15 10:37 | XMS_ITS | Patient Health Record ---
Author Organization [facility] Address [address] [place] [address] Care Team Providers Care Scoop Filler Name Role Phone Po Yo LOMBARDI Primary Care Provider Deandre Cruz [phone] Reason For Referral No Information Medications Medication SIG (Take, Route, Frequency, Duration) Notes [...] directed Ora lly Once a day Not-Taking Immunizations Vaccine Route Administration Date Status Comme nts Influenza Unknown 01/02/2020 Administered Social History Alcohol Screen Question Answer Notes Did you have a drink contain ing alcohol in the past year? Yes How often did you have a dri nk containing alcohol in the past year? Never (0 point) How many drinks did you have on a typical day when you were drinking in the past year? 1 or 2 drinks (0 point) Points 0 Interpretation Negative Section Notes: Nonsmoker since 12/2007; no s ig alcohol--heavy drinker until 1985 Nonsmoker since 12/2007; no s ig alcohol--heavy drinker until 1985 Nonsmoker since 12/2007; no s ig alcohol--heavy drinker until 1985 Problems Problem Type SNOMED Code ICD Code Onset Dates Problem Status W/U Status Risk Notes Problem Screening for malignant neoplasm of colon (587975121) Encounter for screening for malignant neoplasm of colon (Z12.11) Active confirmed Problem History of adenomatous polyp of colon (886610675) History of adenomatous polyp of colon (Z86.010) Active confirmed Problem Gastroesophageal reflux disease (123939924) GERD (gastroesophag eal reflux disease) (K21.9) Active confirmed Problem Garner esophagus (245994881) Garner esophagus (K22.70) Active confirmed Plan Of Treatment Pending Test Test Name Order Date Pathology 04/10/2020 Future Test Test Name Order Date UPPER GI ENDOSCOPY 05/01/2014 UPPER GI ENDOSCOPY 02/18/2020 COLONOSCOPY 02/18/2020 Insurance Providers Payer Name Payer Address Payer Phone Subscriber Number Group Number Insured Name Patient Relationship to Insured Coverage Start Date Coverage End Date [employer] MEDI COMP (REFERR AL REQUIRE D) [address] [address] [place] [address] [phone] [id number] JONAH MONTIEL Self - patient is the insured Medical (General) History Medical History History ICD Code Screening colonoscopy, 09/2008--1 tubular adenoma removed. Hypertension Hyperlipidemia Denies [place],DM,CVA,Lung disease,renal dise ase GERD--EGD in 01/2014--severe erosive [...]
== END 2024-11-15 12:10 | disposition home or self-care (01) ==
LOC: HO.HMCH 10:31
PROVIDERS: PCP Internal Medicine; Visit Provider Internal Medicine
DX: U07.1 COVID-19 (principal)

== ENCOUNTER 2024-12-10 13:15 | Outpatient (REF) | payer MEDICARE, SELFPAY ==
--- OUTSIDE RECORDS SUMMARY | 2024-12-10 15:38 | XMS_ITS | Encounter Summary ---
Author Organization [facility] Address [address] [place] [address] Phone Care Team Providers Care Hybrid Technologist Name Role Phone Yo Waggoner MD Primary Care Provider [phone] Encounter Details Date Type Department Care Team (Late st Contact Info) Description 04/08/2024 Documentation Only [facility], [address] [place] [address] Renee Lao [place] [address] [place] [address] Social History Tobacco Use Types [...] on filedocumented in this encounter Care Teams Hybrid Technologist Relationship Specialty Start Date End Date Yo Waggoner MD [facility] [address] [place], [place] PCP - General Internal Medicine 04/08/24 documented as of this encounter
--- OUTSIDE RECORDS SUMMARY | 2024-12-10 15:38 | XMS_ITS | Clinical Summary ---
Author Organization [facility], Address [address] [place] [address] [place] [address] Phone Care Team Providers Care Drywall Stripper Helper Name Role Phone Yo Waggoner MD Primary Care Provider [phone] Social History Tobacco Use Types Packs/Day Years [...] patient's age to complete this topic Insurance [facility] Medicare Care Teams Drywall Stripper Helper Relationship Specialty Start Date End Date Yo Waggoner [facility] [place] [address] [place], [place] PCP - General Internal Medicine 04/08/24
--- OUTSIDE RECORDS SUMMARY | 2024-12-10 15:38 | XMS_ITS | Encounter Summary ---
Author Organization [facility] Address [address] [place] [address] Phone Care Team Providers Care Certified Court Interpreter Name Role Phone Yo Waggoner MD Primary Care Provider [phone] Encounter Details Date Type Department Care Team (Late st Contact Info) Description 04/12/2024 Documentation Only [facility] [place], [address] [place] [address] Renee Lao [place] [address] [place] [address] Social History Tobacco Use Types [...] on filedocumented in this encounter Care Teams Certified Court Interpreter Relationship Specialty Start Date End Date Yo Waggoner MD [facility] [address] [place], [place] PCP - General Internal Medicine 04/08/24 documented as of this encounter
--- OUTSIDE RECORDS SUMMARY | 2024-12-10 15:38 | XMS_ITS | Patient Health Record ---
Author Organization [facility] Address [address] [place] [address] Care Team Providers Care Domestic Maid Name Role Phone Po Yo LOMBARDI Primary Care Provider Deandre Cruz [phone] Reason For Referral No Information Medications Medication [...] Problem Screening for malignant neoplasm of colon (946557131) Encounter for screening for malignant neoplasm of colon (Z12.11) Active confirmed Problem History of adenomatous polyp of colon (256846623) History of adenomatous polyp of colon (Z86.010) Active confirmed Problem Gastroesophageal reflux disease (250916918) GERD (gastroesophag eal reflux disease) (K21.9) Active confirmed Problem Garner esophagus (374857458) 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 [address] [place] [address] [id number] OJNAH MONTIEL Self - patient is the insured Medical (General) History Medical History History ICD Code Screening colonoscopy, 09/2008--1 tubular adenoma removed. Hypertension Hyperlipidemia Denies [place],DM,CVA,Lung disease,renal dise ase GERD--EGD in 01/2014--severe erosive [...]
[2024-12-10 16:34] LABS: Anion Gap 11 (12-20); Blood Urea Nitrogen 21 mg/dL (9-16); Calcium 8.9 mg/dL (8.4-10.2); Carbon Dioxide 26 mmol/L (22-29); Chloride 107 mmol/L (96-108); Estimated Glomerular Filt Rate 51; Potassium 4.5 mmol/L (3.3-5.1); Sodium 139 mmol/L (135-145)
== END 2024-12-10 13:16 | disposition home or self-care (01) ==
LOC: HO.HMGCLDS 13:15
PROVIDERS: PCP Internal Medicine; Visit Provider Internal Medicine Hypertension Specialist
DX: N28.9 Disorder of kidney and ureter, unspecified (principal)
CPT/HCPCS: 36415; 80048

== ENCOUNTER 2024-12-19 09:23 | Outpatient (AMB) | payer MEDICARE, SELFPAY ==
[2024-12-19 09:36] VITALS: BP 136/60; PULSE 66; O2SAT 95; BMI 26.2
--- NOTE | 2024-12-19 09:36 | HO.NEPHOV_ITS ---
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 Required: No Accompanied by: Self / Same As Patient Allergies No Known Allergies Allergy (Verified 12/19/24 09:37) Medication List - Last Reconciled 12/19/24 by Randall Hendrickson MD albuterol sulfate 90 mcg/actuation (ProAir HFA) 2 puffs inhalation Q6H PRN amlodipine 2.5 mg PO DAILY aspirin 81 mg PO DAILY budesonide 0.5 mg (4 mL) inhalation BID 30 days cholecalciferol (vitamin D3) (Vitamin D3) 25 mcg PO DAILY clotrimazole 1% 1 appl topical BID 4 weeks fluticasone propion-salmeterol 113-14 mcg/actuation 1 inh PO BID 90 days fluticasone propion-salmeterol 115-21 mcg/actuation (Advair HFA) 2 puffs inhalation BID 30 days fluticasone propion-salmeterol 250-50 mcg/dose (Advair Diskus) 1 inh inhalation BID 30 days garlic 1,000 mg PO DAILY ipratropium-albuterol 0.5 mg-3 mg(2.5 mg base)/3 mL 3 mL inhalation Q6H PRN 30 days lisinopril 20 mg PO DAILY mometasone-formoterol 200-5 mcg/actuation (Dulera) 2 puffs inhalation BID 30 days ucwxudpjjbpo-ybwarqyf-loxmnx 1 tab PO DAILY nirmatrelvir-ritonavir 300 mg (150 mg x 2)-100 mg (Paxlovid) take TWO 150 mg tablets of nirmatrelvir with ONE 100 mg tablet of ritonavir twice daily for 5 days PO omega 5-ftc-imv-fish oil 1,200 (144-216) mg (Fish Oil) 1 cap PO DAILY omeprazole 20 mg PO DAILY rosuvastatin 5 mg PO DAILY triamcinolone acetonide 0.5% 1 appl topical BID HPI Comments Details: 79-year-old man with a history of longstanding hypertension. He has been on hydrochlorothiazide and lisinopril. Blood pressure has been reasonably stable. History of COPD and currently on inhalers. He is serum creatinine has been around 1.3 mg/dL for the last few years. However in September of 2023 creatinine bumped up to 1.74 Renal ultrasonogram done at the time was unremarkable. In March 2024 serum creatinine was 1.68 and hence this consultation. He has been drinking adequate fluids. He denies any urinary symptoms. No rash no weight loss. No edema. No history of smoking at present history of smoking several years ago. No history of alcohol abuse. 05/30/24 After stopping HCTZ, cr is down to 0.85 Home BP 130- 145 Systolic 09/05/24 79-year-old male presenting with hypertension management and evaluation of kidney function. He reports consistent daily blood pressure monitoring at home, noting blood pressure fluctuations between 147/111 mmHg, typically under 140 mmHg when at home, but higher when measured at clinics, likely due to appointment-related stress. The patient is taking Lisinopril, which was inc reased from 20 mg to 30 mg six months ago. Diet management includes reduced salt intake. Chronic Kidney Disease has been tracked regularly, with a current GFR of approximately 53%. There has been a general trend of kidney function improvement over recent months but concerns remain about current medication and its effects on renal health. No urinary issues or leg swelling reported. 12/19/24 The patient is an 79-year-old male presenting with hypertension-related disease management. Hypertension is managed with regular monitoring, with readings mostly in the 120s and 130s, occasionally higher. COPD is managed with medication, with no current breathing issues reported. Kidney function is at 51%, stable but targeted for improvement with medication adjustment. Asymptomatic COVID-19 was noted in November, with no treatment due to medication unavailability. Medical History: - Hypertension - Chronic Obstructive Pulmonary Disease (COPD) - COVID-19 (asymptomatic) Medications: - Amlodipine for hypertension - Lisinopril for hypertension Social History: - Drinks three to four bottles of water daily - Engages in activities such as working on a [email or web address] and preparing a boat for winter Diagnostic Results: - Kidney function: 51% [facility] Medical History COPD (chronic obstructive pulmonary disease) History of smoking at least 1 pack per day for at least 30 years COPD (chronic obstructive pulmonary disease) Wheezing Acute bronchitis GERD (gastroesophageal reflux disease) Erectile dysfunction History of ETOH abuse Barretts esophagus Hyperlipidemia Hypertension Surgical History History of cranial surgery History of appendectomy History of tonsillectomy History of umbilical hernia repair History of vasectomy History of left inguinal hernia repair History of esophagogastroduodenoscopy (EGD) Hx of colonoscopy Family History Father No problems noted. Mother Cancer Social History Housing: House Alcohol intake: current Alcohol intake frequency: a few times a month Alcohol type: beer Comment: once Q 6 months 1 beer Patient Tobacco Use Status: Former Tobacco user Tobacco use type: Cigarette Years Smoked: [id number] e-Cigarette/Vaping Use: Never Used Second Hand Smoke Exposure: Yes service: No Current occupational status: retired Cognitive needs: No Hearing needs: No Vision needs: Yes (glasses) Physical Exam Vital Signs: Last Vital Signs Pulse 66 12/19/24 09:36 BP 136/60 12/19/24 09:36 Pulse Ox 95 12/19/24 09:36 Oxygen Delivery Method Room Air 12/19/24 09:36 BMI result Body Mass Index 26.2 Results Reviewed Nephrology Results: Hgb, (14.0-18.0) 15.4 g/dl 06/22/24 WBC, (4.8-10.8) 7.4 X10*3/uL 06/22/24 Plt Count, (160-400) 247 X10*3/uL 06/22/24 Sodium, (135-145) 139 mmol/L 12/10/24 Potassium, (3.3-5.1) 4.5 mmol/L 12/10/24 Chloride, (96-108) 107 mmol/L 12/10/24 Carbon Dioxide, (22-29) 26 mmol/L 12/10/24 BUN, (9-16) 21 mg/dL H 12/10/24 Creatinine, (0.5-1.4) 1.34 mg/dL 12/10/24 Calcium, (8.4-10.2) 8.9 mg/dL 12/10/24 Urine Protein, (Neg-Trace) Negative mg/dL 06/22/24 Renal US 10/11/23 Assessment & Plan Assessment & Plan (1) CKD (chronic kidney disease): Code(s): N18.9 - Chronic kidney disease, unspecified Category: Medical Qualifiers: Chronic kidney disease stage: stage 3 (moderate) Chronic kidney disease stage 3 subtype: stage 3a (GFR 45-59) Qualified Code(s): N18.31 - Chronic kidney disease, stage 3a (2) Renal insufficiency: Code(s): N28.9 - Disorder of kidney and ureter, unspecified Category: Medical Plan 79-year-old man with chronic kidney disease. Stage IIIB CKD. Differential diagnosis would include hypertensive nephrosclerosis. Recent ultrasonogram did not reveal any obstruction. No evidence of glomerular nephritis or interstitial disease- Urine is bland Superimposed BRIGITTE He had a component of hypoperfusion with a combination of HAIR inhibitors and diuretics. Cr improved after stopping HCTZ Cr is up again with high dose of Lisinopril ( 30 mg) 12/19/24 Cr at 1.35 NO proteinuria DC LISINOPRIL 20 mg QD DC AMlodipine 2.5 mg QD Add LOTREL 5/10 1 a day Orders: Orders Basic Metabolic Panel 4 Months N18.31 - Chronic kidney disease, stage 3a Medications: New amlodipine-benazepril 5-10 mg (Lotrel) 1 cap PO DAILY 90 caps 1RF Discontinued lisinopril Discontinued Reason: Doctor's Order 20 mg PO DAILY 30 tabs 0RF amlodipine Discontinued Reason: Doctor's Order 2.5 mg PO DAILY 90 tabs 0RF nirmatrelvir-ritonavir 300 mg (150 mg x 2)-100 mg (Paxlovid) Discontinued Reason: Patient no longer taking take TWO 150 mg tablets of nirmatrelvir with ONE 100 mg tablet of ritonavir twice daily for 5 days PO 30 ea 0RF U07.1 - COVID-19 Coding Level of Care Code Est Pt Level 4 (49810) Diagnoses Stage 3a chronic kidney disease N18.31 Chronic kidney disease stage: stage 3 (moderate) Chronic kidney disease stage 3 subtype: stage 3a (GFR 45-59) Renal insufficiency N28.9
--- OUTSIDE RECORDS SUMMARY | 2024-12-19 11:00 | XMS_ITS | Patient Health Record ---
Author Organization [facility] Address [address] [place] [address] Care Team Providers Care Sports Commentator Name Role Phone Po Yo LOMBARDI Primary Care Provider Deandre Cruz [phone] Reason For Referral No Information Medications Medication [...] Problem Screening for malignant neoplasm of colon (942562876) Encounter for screening for malignant neoplasm of colon (Z12.11) Active confirmed Problem History of adenomatous polyp of colon (283954101) History of adenomatous polyp of colon (Z86.010) Active confirmed Problem Gastroesophageal reflux disease (283976110) GERD (gastroesophag eal reflux disease) (K21.9) Active confirmed 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 [address] [place] [address] [id number] JONAH MONTIEL Self - patient is the insured Medical (General) History Medical History History ICD Code Screening colonoscopy, 09/2008--1 tubular adenoma removed. Hypertension Hyperlipidemia Denies [place],DM,CVA,Lung disease,renal dise ase GERD--EGD in 01/2014--severe erosive [...]
== END 2024-12-19 09:55 | disposition home or self-care (01) ==
LOC: HO.HKA 09:24
PROVIDERS: PCP Internal Medicine; Visit Provider Internal Medicine Hypertension Specialist
DX: N18.31 Chronic kidney disease, stage 3a (principal); N28.9 Disorder of kidney and ureter, unspecified
CPT/HCPCS: 99214

== ENCOUNTER → 2024-12-19 09:23 | Outpatient (BNVA) | payer MEDICARE, SELFPAY | PROVIDERS: PCP Internal Medicine; Visit Provider Internal Medicine Hypertension Specialist | DX: I12.9 Hypertensive chronic kidney disease with stage 1 through stage 4 chronic kidney disease, or unspecified chronic kidney disease (principal); N18.31 Chronic kidney disease, stage 3a; N28.9 Disorder of kidney and ureter, unspecified; Z79.899 Other long term (current) drug therapy | CPT/HCPCS: 99212 ==

== ENCOUNTER 2025-01-15 10:38 | Outpatient (AMB) | payer MEDICARE, SELFPAY ==
--- NOTE | 2025-01-15 10:44 | HO.NEPHOV ---
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 He developed BRIGITTE and his HCTZ has been on hold. His renal functions have improved to baseline. His blood pressure has been reasonably stable but mildly fluctuant which he is concerned about. He is serum creatinine has been stable for the last few years. Renal ultrasonogram had been unremarkable. He denies any urinary symptoms. No rash no weight loss. No edema. No history of smoking at present history of smoking several years ago. No history of alcohol abuse. He feels well. [facility] Medical History COPD (chronic obstructive pulmonary disease) History of smoking at least 1 pack per day for at least 30 years COPD (chronic obstructive pulmonary disease) Wheezing Acute bronchitis GERD (gastroesophageal reflux disease) Erectile dysfunction History of ETOH abuse Barretts esophagus Hyperlipidemia Hypertension Surgical History History of cranial surgery History of appendectomy History of tonsillectomy History of umbilical hernia repair History of vasectomy History of left inguinal hernia repair History of esophagogastroduodenoscopy (EGD) Hx of colonoscopy Family History Father No problems noted. Mother Cancer Social History Housing: House Alcohol intake: current Alcohol intake frequency: a few times a month Alcohol type: beer Comment: once Q 6 months 1 beer Patient Tobacco Use Status: Former Tobacco user Tobacco use type: Cigarette Years Smoked: [id number] e-Cigarette/Vaping Use: Never Used Second Hand Smoke Exposure: Yes service: No Current occupational status: retired Cognitive needs: No Hearing needs: No Vision needs: Yes (glasses) Review of Systems Const All systems reviewed & are unremarkable except as noted in HPI and below Physical Exam Vital Signs: Last Vital Signs Pulse 50 01/15/25 10:46 BP 142/62 H 01/15/25 10:46 Pulse Ox 96 01/15/25 10:46 Oxygen Delivery Method Room Air 01/15/25 10:46 BMI result Body Mass Index 26.3 Const General: comfortable and no acute distress Orientation/consciousness: patient oriented x3 HEENT Head: Yes normocephalic Mouth: Normal oral and palatal mucosa present Eyes EOM: EOMs intact bilaterally Neck Neck: Yes supple Resp Auscultation: clear to auscultation bilaterally Cardio Jugular venous distension: no JVD Rate: regular rate GI Palpation (GI): Soft to palpation Auscultation: normal bowel sounds General: Yes no CVA tenderness Back/Spine/Pelvis Back: no CVA tenderness Skin General skin exam: no rashes or lesions noted Neuro General: patient oriented x3 and moves all extremities Extrem General: Yes no pedal edema Results Reviewed Nephrology Results: Sodium, (135-145) 139 mmol/L 12/10/24 Potassium, (3.3-5.1) 4.5 mmol/L 12/10/24 Chloride, (96-108) 107 mmol/L 12/10/24 Carbon Dioxide, (22-29) 26 mmol/L 12/10/24 BUN, (9-16) 21 mg/dL H 12/10/24 Creatinine, (0.5-1.4) 1.34 mg/dL 12/10/24 Calcium, (8.4-10.2) 8.9 mg/dL 12/10/24 Renal US 10/11/23 Assessment & Plan Assessment & Plan (1) Hypertension: Code(s): I10 - Essential (primary) hypertension Category: Medical Qualifiers: Hypertension type: essential hypertension Qualified Code(s): I10 - Essential (primary) hypertension (2) CKD stage 3a, GFR 45-59 ml/min: Code(s): N18.31 - Chronic kidney disease, stage 3a Category: Medical Plan 80-year-old man with 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 His renal function is back to baseline. Recent ultrasonogram did not reveal any obstruction. His BP needs to be maintained at 130/80 mm of Hg. I increased his Lotrel to 2 tabs daily. I ordered F/U labs . No NSAID's. Good hydration. Answered all questions. Orders: Orders Electrolytes 1 Month I10 - Essential (primary) hypertension Blood Urea Nitrogen 1 Month I10 - Essential (primary) hypertension Creatinine 1 Month I10 - Essential (primary) hypertension Medications: Changed From amlodipine-benazepril 5-10 mg (Lotrel) 1 cap PO DAILY 90 caps 1RF To amlodipine-benazepril 5-10 mg (Lotrel) 2 caps PO DAILY 90 caps 1RF From amlodipine-benazepril 5-10 mg (Lotrel) 2 caps PO DAILY 90 caps 1RF To amlodipine-benazepril 5-10 mg (Lotrel) 2 caps PO DAILY 180 caps 1RF 90 days Coding Level of Care Code Est Pt Level 4 (18495) Diagnoses Essential hypertension I10 Hypertension type: essential hypertension CKD stage 3a, GFR 45-59 ml/min N18.31
[2025-01-15 10:46] VITALS: BP 142/62; PULSE 50; O2SAT 96; BMI 26.3
--- OUTSIDE RECORDS SUMMARY | 2025-01-15 12:41 | XMS_ITS | Clinical Summary ---
Author Organization [facility], Address [address] [place] [address] [place] [address] Phone Care Team Providers Care Banking Teacher Name Role Phone Yo Waggoner MD Primary Care Provider [phone] Social History Tobacco Use Types Packs/Day Years [...] to complete this topic Insurance [facility] Medicare Care Teams Banking Teacher Relationship Specialty Start Date End Date Yo Waggoner [facility] [place] [address] [place], [place] PCP - General Internal Medicine 04/08/24
--- OUTSIDE RECORDS SUMMARY | 2025-01-15 12:41 | XMS_ITS | Encounter Summary ---
Author Organization [facility] Address [address] [place] [address] Phone Care Team Providers Care Lens Edge Grinder Machine Name Role Phone Yo Waggoner MD Primary Care Provider [phone] Encounter Details Date Type Department Care Team (Late st Contact Info) Description 04/12/2024 Documentation Only [facility] [place], [address] [place] [address] Renee Lao [place] [address] [place] [address] Social History Tobacco Use Types [...] on filedocumented in this encounter Care Teams Lens Edge Grinder Machine Relationship Specialty Start Date End Date Yo Waggoner MD [facility] [address] [place], [place] PCP - General Internal Medicine 04/08/24 documented as of this encounter
--- OUTSIDE RECORDS SUMMARY | 2025-01-15 12:42 | XMS_ITS | Patient Health Record ---
Author Organization [facility] Address [address] [place] [address] Care Team Providers Care Office Helper Clerical Name Role Phone Po Yo LOMBARDI Primary Care Provider Deandre Cruz [phone] Reason For Referral No Information Medications Medication [...] MG 1 capsule Orally Onc e a day; Duration: 12/20/2014 Active Zithromax 250 MG 2 tablet [...] Problem Screening for malignant neoplasm of colon (080478666) Encounter for screening for malignant neoplasm of colon (Z12.11) Active confirmed Problem History of adenomatous polyp of colon (637084464) History of adenomatous polyp of colon (Z86.010) Active confirmed Problem Gastroesophageal reflux disease (723689605) GERD (gastroesophag eal reflux disease) (K21.9) Active confirmed Problem Garner esophagus (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 [address] [place] [address] [id number] JONAH MONTIEL Self - patient is the insured Medical (General) History Medical History History ICD Code Screening colonoscopy, 09/2008--1 tubular adenoma removed. Hypertension Hyperlipidemia Denies [place],DM,CVA,Lung disease,renal dise ase GERD--EGD in 01/2014--severe erosive [...]
--- OUTSIDE RECORDS SUMMARY | 2025-01-15 12:42 | XMS_ITS | Encounter Summary ---
Author Organization [facility] Address [address] [place] [address] Phone Care Team Providers Care Potato Chip Sorter Name Role Phone Yo Waggoner MD Primary Care Provider [phone] Encounter Details Date Type Department Care Team (Late st Contact Info) Description 04/08/2024 Documentation Only [facility] [place], [address] [place] [address] Renee Lao [place] [address] [place] [address] Social History Tobacco Use Types [...] on filedocumented in this encounter Care Teams Potato Chip Sorter Relationship Specialty Start Date End Date Yo Waggoner MD [facility] INTERNAL [address] [place], [place] PCP - General Internal Medicine 04/08/24 documented as of this encounter
== END 2025-01-15 11:11 | disposition home or self-care (01) ==
LOC: HO.HKA 10:39
PROVIDERS: PCP Internal Medicine; Visit Provider Internal Medicine Nephrology
DX: I10 Essential (primary) hypertension (principal); N18.31 Chronic kidney disease, stage 3a
CPT/HCPCS: 99214

== ENCOUNTER → 2025-01-15 10:38 | Outpatient (BNVA) | payer MEDICARE, SELFPAY | PROVIDERS: PCP Internal Medicine; Visit Provider Internal Medicine Nephrology | DX: I10 Essential (primary) hypertension (principal); N18.31 Chronic kidney disease, stage 3a | CPT/HCPCS: 99212 ==

== ENCOUNTER 2025-01-27 09:15 | Outpatient (AMB) | payer MEDICARE, SELFPAY ==
[2025-01-27 09:26] VITALS: BP 130/52; PULSE 71; O2SAT 95; BMI 26.3
--- NOTE | 2025-01-27 09:26 | MHC.OFFVIS ---
Vital Signs 01/27/25 09:26 Height 5 ft 8.5 in Weight 175 lb 4.28 oz BMI 26.3 BP 130/52 L Blood Pressure Location Lt brachial Position Sitting Pulse 71 Pulse Source Pulse Oximeter Pulse Oximetry (%) 95 Oxygen Delivery Method Room Air Intake Visit Reasons: COPD Intake Note: pt is here for follow up and states he is feeling great Confectionery Laboratory Manager Required: No Red Cross Executive Director: Red Cross Executive Director offered & declined Allergies No Known Allergies Allergy (Verified 01/27/25 09:42) Medication List - Last Reconciled 01/27/25 by Jody Wade MD albuterol sulfate 90 mcg/actuation (ProAir HFA) 2 puffs inhalation Q6H PRN amlodipine-benazepril 5-10 mg (Lotrel) 2 caps PO DAILY 90 days aspirin 81 mg PO DAILY cholecalciferol (vitamin D3) (Vitamin D3) 25 mcg PO DAILY clotrimazole 1% 1 appl topical BID 4 weeks fluticasone propion-salmeterol 113-14 mcg/actuation 1 inh PO BID 90 days fluticasone propion-salmeterol 250-50 mcg/dose (Advair Diskus) 1 inh inhalation BID 30 days garlic 1,000 mg PO DAILY ipratropium-albuterol 0.5 mg-3 mg(2.5 mg base)/3 mL 3 mL inhalation Q6H PRN 30 days magnesium oxide 500 mg PO DAILY mometasone-formoterol 200-5 mcg/actuation (Dulera) 2 puffs inhalation BID 30 days xxeroezeqnne-mcmcijas-hvcaub 1 tab PO DAILY omega 0-exp-xvy-fish oil 1,200 (144-216) mg (Fish Oil) 1 cap PO DAILY omeprazole 20 mg PO DAILY rosuvastatin 5 mg PO DAILY triamcinolone acetonide 0.5% 1 appl topical BID Do you need a note to return to daycare/school/sports/work: No HPI HPI COPD: Details: JONAH 80 YEARS 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 HAS BEEN VERY STABLE AND DID NOT HAVE ANY ACUTE EXACERBATION HE IS HAPPY WITH GETTING HIS MEDS THROUGH [facility], HE HAS ONLY MINIMAL SHORTNESS OF BREATH WHEN HE WALKS FAST OR CLIMBS STAIRS, QUIT SMOKING. 22 YEARS AGO [facility]LY [facility] Medical History COPD (chronic obstructive pulmonary disease) History of smoking at least 1 pack per day for at least 30 years COPD (chronic obstructive pulmonary disease) Wheezing Acute bronchitis GERD (gastroesophageal reflux disease) Erectile dysfunction History of ETOH abuse Barretts esophagus Hyperlipidemia Hypertension Surgical History History of cranial surgery History of appendectomy History of tonsillectomy History of umbilical hernia repair History of vasectomy History of left inguinal hernia repair History of esophagogastroduodenoscopy (EGD) Hx of colonoscopy Family History Father No problems noted. Mother Cancer Social History Housing: House Alcohol intake: current Alcohol intake frequency: a few times a month Alcohol type: beer Comment: once Q 6 months 1 beer Patient Tobacco Use Status: Former Tobacco user Tobacco use type: Cigarette Years Smoked: [id number] e-Cigarette/Vaping Use: Never Used Second Hand Smoke Exposure: Yes service: No Current occupational status: retired Cognitive needs: No Hearing needs: No Vision needs: Yes (glasses) Review of Systems Const All systems reviewed & are unremarkable except as noted in HPI and below Eyes Reports no additional complaints ENT Reports no additional complaints Card Denies chest pain, Denies irregular heart rhythm and Denies leg edema Resp Reports as per HPI GI Reports heartburn (Controlled with medication) Reports no additional complaints Musc Reports no additional complaints Skin/Breast Reports system reviewed and no additional complaints, except as documented Neuro Reports no additional complaints Psych Reports no additional complaints Physical Exam Vital Signs: Last Vital Signs Pulse 71 01/27/25 09:26 BP 130/52 L 01/27/25 09:26 Pulse Ox 95 01/27/25 09:26 Oxygen Delivery Method Room Air 01/27/25 09:26 BMI result Body Mass Index 26.3 Const General: healthy appearing, comfortable, no acute distress, alert and awake Orientation/consciousness: patient oriented x3 HEENT Head: Yes normal to inspection General nose exam: No nasal polyps present and No nasal discharge present Face and sinus: Yes sinuses nontender Mouth: oropharynx normal Throat: Yes posterior oropharynx normal Eyes General: appearance normal, both eyes and all related structures Neck Neck: Yes normal visual inspection, Yes no lymphadenopathy, Yes trachea midline and Yes no JVD Thyroid: Thyroid normal Chest Chest palpation & inspection: normal inspection of the chest, normal palpation of entire chest wall and no tenderness Resp Other: Percussion note resonant, has good breath sounds on both sides, slightly distant with prolonged expiratory phase. No wheezes rhonchi or crepitations are heard. Cardio Palpation: normal PMI Rate: regular rate Rhythm: regular rhythm Heart sounds: no gallops and no murmurs Peripheral pulses: Peripheral pulses 2+ throughout GI Palpation (GI): Soft to palpation, nontender, No hepatosplenomegaly present and no masses Auscultation: normal bowel sounds Back/Spine/Pelvis Thoracic/Lumbar Spine: thoracic and lumbar spine normal to inspection Skin General skin exam: no rashes or lesions noted Neuro General: patient oriented x3 and no focal motor deficits Cranial nerves: Yes CN's II-XII intact bilaterally Extrem General: Yes normal to inspection, Yes no clubbing, cyanosis or edema and Yes no calf tenderness Psych Appearance: grossly normal and well kempt Speech and movement: Normal speech and movement present Assessment & Plan Assessment & Plan (1) COPD (chronic obstructive pulmonary disease): Comment: As per Pulmonary function test he has Moderately severe obstructive airway disorder. Remains well controlled and stable with AirDuo, 113-14 1 inhalation b.i.d. Code(s): J44.9 - Chronic obstructive pulmonary disease, unspecified Category: Medical Qualifiers: COPD type: emphysema Emphysema type: unspecified Qualified Code(s): J43.9 - Emphysema, unspecified Plan: CONTINUE AIRDUO 113-14 1 INHALATION B.I.D. AND USE ALBUTEROL HFA 2 PUFFS Q 6 HOURS ONLY P.R.N. ( HARDLY NEEDS TO USE IT ) NO NEED TO USE BUDESONIDE SOLUTION IN THE NEBULIZER (2) History of smoking at least 1 pack per day for at least 30 years: Comment: He smoked for 40 years, almost 2 packs a day. But quit 21 years ago. Code(s): Z87.891 - Personal history of nicotine dependence Category: Social Hx Plan: COMMENDED FOR NOT SMOKING Coding Level of Care Code Est Pt Level 3 (62815) Diagnoses Pulmonary emphysema, unspecified emphysema type J43.9 COPD type: emphysema Emphysema type: unspecified History of smoking at least 1 pack per day for at least 30 years Z87.891
--- OUTSIDE RECORDS SUMMARY | 2025-01-27 10:09 | XMS_ITS | Encounter Summary ---
Author Organization [facility] Address [address] [place] [address] Phone Care Team Providers Care Sales Support Manager Name Role Phone Yo Waggoner MD Primary Care Provider [phone] Encounter Details Date Type Department Care Team (Late st Contact Info) Description 04/08/2024 Documentation Only [facility] [place], [address] [place] [address] Renee Lao [place] [address] [place] [address] Social History Tobacco Use Types [...] on filedocumented in this encounter Care Teams Sales Support Manager Relationship Specialty Start Date End Date Yo Waggoner MD [facility] INTERNAL [address] [place], [place] PCP - General Internal Medicine 04/08/24 documented as of this encounter
--- OUTSIDE RECORDS SUMMARY | 2025-01-27 10:09 | XMS_ITS | Encounter Summary ---
Author Organization [facility] Address [address] [place] [address] Phone Care Team Providers Care Risk Intern Name Role Phone Yo Waggoner MD Primary Care Provider [phone] Encounter Details Date Type Department Care Team (Late st Contact Info) Description 04/12/2024 Documentation Only [facility] [place], [address] [place] [address] Renee Lao [place] [address] [place] [address] Social History Tobacco Use Types [...] on filedocumented in this encounter Care Teams Risk Intern Relationship Specialty Start Date End Date Yo Waggoner MD [facility] INTERNAL [address] [place], [place] PCP - General Internal Medicine 04/08/24 documented as of this encounter
--- OUTSIDE RECORDS SUMMARY | 2025-01-27 10:09 | XMS_ITS | Clinical Summary ---
Author Organization [facility] [place], Address [address] [place] [address] [place] [address] Phone Care Team Providers Care Recruitment Consultant Name Role Phone Yo Waggoner MD Primary Care Provider [phone] Social History Tobacco Use Types Packs/Day Years [...] to complete this topic Insurance [facility] Medicare Care Teams Recruitment Consultant Relationship Specialty Start Date End Date Yo Waggoner [facility] [place] [address] [place], [place] PCP - General Internal Medicine 04/08/24
== END 2025-01-27 09:43 | disposition home or self-care (01) ==
LOC: HO.HPS 09:16
PROVIDERS: PCP Internal Medicine; Visit Provider Internal Medicine
DX: J43.9 Emphysema, unspecified (principal); Z87.891 Personal history of nicotine dependence
CPT/HCPCS: 99213

== ENCOUNTER → 2025-01-27 09:15 | Outpatient (BNVA) | payer MEDICARE, SELFPAY | PROVIDERS: PCP Internal Medicine; Visit Provider Internal Medicine | DX: J43.9 Emphysema, unspecified (principal); Z87.891 Personal history of nicotine dependence | CPT/HCPCS: 99212 ==

== ENCOUNTER 2025-03-15 07:02 | Outpatient (REF) | payer MEDICARE, SELFPAY ==
--- OUTSIDE RECORDS SUMMARY | 2025-03-15 07:05 | XMS_ITS | Patient Health Record ---
Author Organization [facility] Address [address] [place] [address] Care Team Providers Care Metal Technician Name Role Phone Po Yo LOMBARDI Primary Care Provider Deandre Cruz [phone] Reason For Referral No Information Medications Medication SIG (Take, Route, Frequency, Duration) Notes Start Date End Date Status Multi Vitamin/Minerals Tablet Orally Active Aspir-81 81 MG Tablet Delayed Release 1 tablet Orally Once a day Active Garlic 1000 MG Capsule Orally Active Pravastatin Sodium 10 MG Tablet 1 tablet Orally Once a day Active Lisinopril 20 MG Tablet 1 tablet Orally Once a day Active Vitamin D 25 MCG (1000 UT) Tablet 1 tablet Orally Once a day Active Omeprazole 20 MG Capsule Delayed Release 1 capsule Orally Once a day; Duration: 12/20/2014 Active Zithromax 250 MG Tablet 2 tablet on the first day, then 1 tablet daily for 4 days Orally Not-Taking/PRN Sildenafil Citrate 50 MG Tablet 1 tablet as needed Orally Once a day Active Centrum Silver Tablet Orally Active Fish Oil 1200 MG Capsule 1 capsule Orall y Once a day Active Cyclobenzaprine HCl 5 MG Tablet as directed Orally Once a day Not-Taking/PRN Immunizations Vaccine Route Administration Date Status Comme nts Influenza Unknown 01/02/2020 Administered Social History Social History Drugs/Alcohol: Social Info Question Answer Notes Alcohol Screen Did you have a drink containing alcohol in the past year? Yes How often did you have a drink containing alcohol in the past year? Never (0 point) How many drinks did you have on a typical day when you were drinking in the past year? 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 Notes: Nonsmoker since 12/2007; no s ig alcohol--heavy drinker until 1985 Nonsmoker since 12/2007; no s ig alcohol--heavy drinker until 1985 Nonsmoker since 12/2007; no s ig alcohol--heavy drinker until 1985 Problems Problem Type SNOMED Code ICD Code Onset Dates Problem Status W/U Status Risk Notes Problem Screening for malignant neoplasm of colon (247582982) Encounter for screening for malignant neoplasm of colon (Z12.11) Active confirmed Problem History of adenomatous polyp of colon (025784707) History of adenomatous polyp of colon (Z86.010) Active confirmed Problem Gastroesophageal reflux disease (272216363) GERD (gastroesophag eal reflux disease) (K21.9) Active confirmed 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 [address] [place] [address] [id number] JONAH MONTIEL Self - patient is the insured Medical (General) History Medical History History ICD Code Screening colonoscopy, 09/2008--1 tubular adenoma removed. Hypertension Hyperlipidemia Denies [place],DM,CVA,Lung disease,renal dise ase GERD--EGD in 01/2014--severe erosive [...]
[2025-03-15 12:07] LABS: Anion Gap 11 (12-20); Blood Urea Nitrogen 19 mg/dL (9-16); Carbon Dioxide 27 mmol/L (22-29); Chloride 106 mmol/L (96-108); Estimated Glomerular Filt Rate 56; Potassium 4.5 mmol/L (3.3-5.1); Sodium 139 mmol/L (135-145)
== END 2025-03-15 07:03 | disposition home or self-care (01) ==
LOC: HO.HMGCLDS 07:02
PROVIDERS: PCP Internal Medicine; Visit Provider Internal Medicine Nephrology
DX: I10 Essential (primary) hypertension (principal)
CPT/HCPCS: 36415; 80051; 82565; 84520

== ENCOUNTER 2025-03-21 09:30 | Outpatient (AMB) | payer MEDICARE, SELFPAY ==
--- NOTE | 2025-03-21 09:44 | HO.NEPHOV ---
Vital Signs 03/21/25 09:45 Height 5 ft 8.5 in Weight 175 lb 6 oz BMI 26.3 BP 132/60 Blood Pressure Location Lt brachial Position Sitting Pulse 68 Pulse Source Pulse Oximeter Pulse Oximetry (%) 96 Oxygen Delivery Method Room Air Intake Visit Reasons: 6 wks f/u w/ labs-LVM Rail Tractor Operator Required: No Accompanied by: Self / Same As Patient Allergies No Known Allergies Allergy (Verified 03/21/25 09:45) HPI Comments Details: 80-year-old man with a history of longstanding hypertension and mild CKD is here for F/U. His renal functions have improved to baseline. Renal ultrasonogram had been unremarkable. He denies any urinary symptoms. No rash no weight loss. No edema. No history of smoking at present history of smoking several years ago. No history of alcohol abuse. He feels well. [facility]LY [facility] Medical History COPD (chronic obstructive pulmonary disease) History of smoking at least 1 pack per day for at least 30 years COPD (chronic obstructive pulmonary disease) Wheezing Acute bronchitis GERD (gastroesophageal reflux disease) Erectile dysfunction History of ETOH abuse Barretts esophagus Hyperlipidemia Hypertension Surgical History History of cranial surgery History of appendectomy History of tonsillectomy History of umbilical hernia repair History of vasectomy History of left inguinal hernia repair History of esophagogastroduodenoscopy (EGD) Hx of colonoscopy Family History Father No problems noted. Mother Cancer Social History Housing: House Alcohol intake: current Alcohol intake frequency: a few times a month Alcohol type: beer Comment: once Q 6 months 1 beer Patient Tobacco Use Status: Former Tobacco user Tobacco use type: Cigarette Years Smoked: [id number] e-Cigarette/Vaping Use: Never Used Second Hand Smoke Exposure: Yes service: No Current occupational status: retired Cognitive needs: No Hearing needs: No Vision needs: Yes (glasses) Review of Systems Const All systems reviewed & are unremarkable except as noted in HPI and below Physical Exam Vital Signs: Last Vital Signs Pulse 68 03/21/25 09:45 BP 132/60 03/21/25 09:45 Pulse Ox 96 03/21/25 09:45 Oxygen Delivery Method Room Air 03/21/25 09:45 BMI result Body Mass Index 26.3 Const General: comfortable and no acute distress Orientation/consciousness: patient oriented x3 HEENT Head: Yes normocephalic Mouth: Normal oral and palatal mucosa present Eyes EOM: EOMs intact bilaterally Neck Neck: Yes supple Resp Auscultation: clear to auscultation bilaterally Cardio Jugular venous distension: no JVD Rate: regular rate GI Palpation (GI): Soft to palpation Auscultation: normal bowel sounds General: Yes no CVA tenderness Back/Spine/Pelvis Back: no CVA tenderness Skin General skin exam: no rashes or lesions noted Neuro General: patient oriented x3 and moves all extremities Extrem General: Yes no pedal edema Results Reviewed Nephrology Results: Sodium, (135-145) 139 mmol/L 03/15/25 Potassium, (3.3-5.1) 4.5 mmol/L 03/15/25 Chloride, (96-108) 106 mmol/L 03/15/25 Carbon Dioxide, (22-29) 27 mmol/L 03/15/25 BUN, (9-16) 19 mg/dL H 03/15/25 Creatinine, (0.5-1.4) 1.23 mg/dL 03/15/25 Calcium, (8.4-10.2) 8.9 mg/dL 12/10/24 Renal US 10/11/23 Assessment & Plan Assessment & Plan (1) Hypertension: Code(s): I10 - Essential (primary) hypertension Category: Medical Qualifiers: Hypertension type: essential hypertension Qualified Code(s): I10 - Essential (primary) hypertension (2) CKD stage 3a, GFR 45-59 ml/min: Code(s): N18.31 - Chronic kidney disease, stage 3a Category: Medical Plan His renal function is back to baseline. Recent ultrasonogram did not reveal any obstruction. His BP needs to be maintained at 130/80 mm of Hg. C/W current medication regimen. I ordered F/U labs . No NSAID's. Good hydration. Answered all questions. Orders: Orders Electrolytes 6 Months I10 - Essential (primary) hypertension, N18.31 - Chronic kidney disease, stage 3a Blood Urea Nitrogen 6 Months I10 - Essential (primary) hypertension, N18.31 - Chronic kidney disease, stage 3a Creatinine 6 Months I10 - Essential (primary) hypertension, N18.31 - Chronic kidney disease, stage 3a Protein Creatinine Ratio, Ur 6 Months I10 - Essential (primary) hypertension, N18.31 - Chronic kidney disease, stage 3a Coding Level of Care Code Est Pt Level 4 (65669) Diagnoses Essential hypertension I10 Hypertension type: essential hypertension CKD stage 3a, GFR 45-59 ml/min N18.31
[2025-03-21 09:45] VITALS: BP 132/60; PULSE 68; O2SAT 96; BMI 26.3
--- OUTSIDE RECORDS SUMMARY | 2025-03-21 10:13 | XMS_ITS | Encounter Summary ---
Author Organization [facility] Address [address] [place] [address] Phone Care Team Providers Care Oil Well Drilling Manager Name Role Phone Yo Waggoner MD Primary Care Provider [phone] Encounter Details Date Type Department Care Team (Late st Contact Info) Description 04/12/2024 Documentation Only [facility] [place], [address] [place] [address] Renee Lao [place] [address] [place] [address] Social History Tobacco Use Types [...] on filedocumented in this encounter Care Teams Oil Well Drilling Manager Relationship Specialty Start Date End Date Yo Waggonre MD [facility] INTERNAL [address] [place], [place] PCP - General Internal Medicine 04/08/24 documented as of this encounter
--- OUTSIDE RECORDS SUMMARY | 2025-03-21 10:13 | XMS_ITS | Encounter Summary ---
Author Organization [facility] Address [address] [place] [address] Phone Care Team Providers Care Community Mental Health Social Worker Name Role Phone Yo Waggoner MD Primary Care Provider [phone] Encounter Details Date Type Department Care Team (Late st Contact Info) Description 04/08/2024 Documentation Only [facility] [place], [address] [place] [address] Renee Lao [place] [address] [place] [address] Social History Tobacco Use Types [...] on filedocumented in this encounter Care Teams Community Mental Health Social Worker Relationship Specialty Start Date End Date Yo Waggoner MD [facility] INTERNAL [address] [place], [place] PCP - General Internal Medicine 04/08/24 documented as of this encounter
--- OUTSIDE RECORDS SUMMARY | 2025-03-21 10:13 | XMS_ITS | Clinical Summary ---
Author Organization [facility] [place], Address [address] [place] [address] [place] [address] Phone Care Team Providers Care Litigation Assistant Name Role Phone Yo Waggoner MD Primary Care Provider [phone] Social History Tobacco Use Types Packs/Day Years [...] patient's age to complete this topic Insurance [facility] Medicare Care Teams Litigation Assistant Relationship Specialty Start Date End Date Yo Waggoner MD [facility] [place] [address] [place], [place] PCP - General Internal Medicine 04/08/24
--- OUTSIDE RECORDS SUMMARY | 2025-03-21 10:13 | XMS_ITS | Patient Health Record ---
Author Organization 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 Notes: Nonsmoker since 12/2007; no s ig alcohol--heavy drinker until 1985 Nonsmoker since 12/2007; no s ig alcohol--heavy drinker until 1985 Nonsmoker since 12/2007; no s ig alcohol--heavy drinker until 1985 Problems Problem Type SNOMED Code ICD Code Onset Dates Problem Status W/U Status Risk Notes Problem Screening for malignant neoplasm of colon (170580017) Encounter for screening for malignant neoplasm of colon (Z12.11) Active confirmed Problem History of adenomatous polyp of colon (487644172) History of adenomatous polyp of colon (Z86.010) Active confirmed Problem Gastroesophageal reflux disease (855505713) GERD (gastroesophag eal reflux disease) (K21.9) Active confirmed Problem Garner esophagus (449253281) 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 [address] [place] [address] [phone] [id number] JONAH MONTIEL Self - patient is the insured Medical (General) History Medical History History ICD Code Screening colonoscopy, 09/2008--1 tubular adenoma removed. Hypertension Hyperlipidemia Denies [place],DM,CVA,Lung disease,renal dise ase GERD--EGD in 01/2014--severe erosive [...]
== END 2025-03-21 09:59 | disposition home or self-care (01) ==
LOC: HO.HKA 09:31
PROVIDERS: PCP Internal Medicine; Visit Provider Internal Medicine Nephrology
DX: I10 Essential (primary) hypertension (principal); N18.31 Chronic kidney disease, stage 3a
CPT/HCPCS: 99214

== ENCOUNTER → 2025-03-21 09:30 | Outpatient (BNVA) | payer MEDICARE, SELFPAY | PROVIDERS: PCP Internal Medicine; Visit Provider Internal Medicine Nephrology | DX: I12.9 Hypertensive chronic kidney disease with stage 1 through stage 4 chronic kidney disease, or unspecified chronic kidney disease (principal); N18.31 Chronic kidney disease, stage 3a; Z87.891 Personal history of nicotine dependence | CPT/HCPCS: 99212 ==

== ENCOUNTER 2025-03-25 09:37 | Outpatient (REF) | payer MEDICARE, SELFPAY ==
--- OUTSIDE RECORDS SUMMARY | 2025-03-25 10:26 | XMS_ITS | Encounter Summary ---
Author Organization [facility] Address [address] [place] [address] Phone Care Team Providers Care Shift Nurse Manager Name Role Phone Yo Waggoner MD Primary Care Provider [phone] Encounter Details Date Type Department Care Team (Late st Contact Info) Description 04/12/2024 Documentation Only [facility] [place], [address] [place] [address] Renee Lao [place] [address] [place] [address] Social History Tobacco Use Types [...] on filedocumented in this encounter Care Teams Shift Nurse Manager Relationship Specialty Start Date End Date Yo Waggoner MD [facility] INTERNAL [address] [place], [place] PCP - General Internal Medicine 04/08/24 documented as of this encounter
--- OUTSIDE RECORDS SUMMARY | 2025-03-25 10:26 | XMS_ITS | Clinical Summary ---
Author Organization [facility] [place], Address [address] [place] [address] [place] [address] Phone Care Team Providers Care Bead Worker Sewing Name Role Phone Yo Waggoner MD Primary Care Provider [phone] Social History Tobacco Use Types Packs/Day Years [...] patient's age to complete this topic Insurance [facility] Medicare Care Teams Bead Worker Sewing Relationship Specialty Start Date End Date Yo Waggoner MD [facility] [place] [address] [place], [place] PCP - General Internal Medicine 04/08/24
--- OUTSIDE RECORDS SUMMARY | 2025-03-25 10:26 | XMS_ITS | Patient Health Record ---
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: Nonsmoker since 12/2007; no s ig alcohol--heavy drinker until 1985 Nonsmoker since 12/2007; no s ig alcohol--heavy drinker until 1985 Nonsmoker since 12/2007; no s ig alcohol--heavy drinker until 1985 Problems Problem Type SNOMED Code ICD Code Onset Dates Problem Status W/U Status Risk Notes Problem Screening for malignant neoplasm of colon (717315269) Encounter for screening for malignant neoplasm of colon (Z12.11) Active confirmed Problem History of adenomatous polyp of colon (421472557) History of adenomatous polyp of colon (Z86.010) Active confirmed Problem Gastroesophageal reflux disease (930906424) GERD (gastroesophag eal reflux disease) (K21.9) Active confirmed Problem Garner esophagus (137774250) 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 [address] [place] [address] [id number] JONAH MONTIEL Self - patient is the insured Medical (General) History Medical History History ICD Code Screening colonoscopy, 09/2008--1 tubular adenoma removed. Hypertension Hyperlipidemia Denies NV,DM,CVA,Lung disease,renal dise ase GERD--EGD in 01/2014--severe erosive [...]
--- OUTSIDE RECORDS SUMMARY | 2025-03-25 10:26 | XMS_ITS | Encounter Summary ---
Author Organization [facility] Address [address] [place] [address] Phone Care Team Providers Care Freelance Translator Name Role Phone Yo Waggoner MD Primary Care Provider [phone] Encounter Details Date Type Department Care Team (Late st Contact Info) Description 04/08/2024 Documentation Only [facility], [address] [place] [address] Renee La[place] [address] [place] [address] Social History Tobacco Use Types [...] on filedocumented in this encounter Care Teams Freelance Translator Relationship Specialty Start Date End Date Yo Waggoner MD [facility] [address] [place], [place] PCP - General Internal Medicine 04/08/24 documented as of this encounter
[2025-03-25 13:42] LABS: MANUAL DIFF FLAG NO
[2025-03-25 13:45] LABS: Appearance Urine Clear; Glucose Urine UA Negative (Negative); PH 6.5 (5.0-9.0); Specific Gravity - Urine 1.010 (1.005-1.025)
[2025-03-25 13:57] LABS: Hematocrit 41.8 % (42.0-52.0); Hemoglobin 13.9 g/dl (14.0-18.0); Imm Gran Abs Auto 0.01 X10*3/uL (0.00-0.03); Imm Gran Pct Auto 0.1 % (0.0-0.4); Lymphocytes Absolute Auto 2.1 X10*3/uL (1.2-4.9); Mean Corpuscular HGB Conc 33.3 g/dl (31.0-36.0); Mean Corpuscular Hemoglobin 31.1 pg (27.0-33.0); Mean Corpuscular Volume 93.5 fL (80.0-98.0); NRBC Abs Auto 0.000 X10*3/uL (0.0-0.012); NRBC Pct Auto 0.0 /100WBC (0.0-0.2); Platelet Count 255 X10*3/uL (160-400); Red Blood Count 4.47 X10*6/uL (4.60-5.80); White Blood Count 6.7 X10*3/uL (4.8-10.8)
[2025-03-25 14:22] LABS: Alanine Aminotransferase 27 U/L (0-40); Albumin Level 4.3 g/dL (3.5-5.0); Alkaline Phosphatase 65 U/L (39-117); Anion Gap 10 (12-20); Aspartate Amino Transferase 31 U/L (5-37); Blood Urea Nitrogen 17 mg/dL (9-16); Calcium 9.3 mg/dL (8.4-10.2); Carbon Dioxide 27 mmol/L (22-29); Chloride 107 mmol/L (96-108); Cholesterol 119 mg/dL (<200); Estimated Glomerular Filt Rate 54; HDL Cholesterol 46 mg/dL (>40); Potassium 4.8 mmol/L (3.3-5.1); Sodium 139 mmol/L (135-145); Total Protein 6.8 g/dL (6.5-8.0); Triglycerides 72 mg/dL (<150)
[2025-03-25 14:35] LABS: Free T4 (Free Thyroxine) 0.94 ng/dL (0.71-1.85); Thyroid Stimulating Hormone 1.18 uIU/mL (0.32-4.0)
[2025-03-25 14:51] LABS: Folate 16.9 ng/mL (> or = 4.0); Vitamin B12 473 pg/mL (200-900)
== END 2025-03-25 09:38 | disposition home or self-care (01) ==
LOC: HO.HMGCLDS 09:37
PROVIDERS: PCP Internal Medicine; Visit Provider Internal Medicine
DX: N18.31 Chronic kidney disease, stage 3a (principal); E78.00 Pure hypercholesterolemia, unspecified; R30.0 Dysuria
CPT/HCPCS: 36415; 80053; 80061; 81003; 82607; 82746; 84439; 84443; 85025

== ENCOUNTER 2025-04-02 11:16 | Outpatient (AMB) | payer MEDICARE, SELFPAY ==
--- NOTE | 2025-04-02 11:20 | A.OFFPC_ITS ---
Vital Signs 04/02/25 11:21 Height 5 ft 8.5 in Weight 175 lb BMI 26.2 BP 136/62 Blood Pressure Location Lt brachial Position Sitting Pulse 68 Pulse Source Pulse Oximeter Pulse Oximetry (%) 95 Oxygen Delivery Method Room Air Intake Visit Reasons: ANNUAL PE - see comments Allergies No Known Allergies Allergy (Verified 04/02/25 11:21) Medication List - Last Reconciled 04/02/25 by Yo Waggoner MD albuterol sulfate 90 mcg/actuation (ProAir HFA) 2 puffs inhalation Q6H PRN amlodipine-benazepril 5-10 mg (Lotrel) 2 caps PO DAILY 90 days aspirin 81 mg PO DAILY cholecalciferol (vitamin D3) (Vitamin D3) 25 mcg PO DAILY clotrimazole 1% 1 appl topical BID 4 weeks fluticasone propion-salmeterol 113-14 mcg/actuation 1 inh PO BID 90 days garlic 1,000 mg PO DAILY ipratropium-albuterol 0.5 mg-3 mg(2.5 mg base)/3 mL 3 mL inhalation Q6H PRN 30 days magnesium oxide 500 mg PO DAILY ruafdvvotqwn-[id number]-[id number] 1 tab PO DAILY omega 6-nhx-lxy-fish oil 1,200 (144-216) mg (Fish Oil) 1 cap PO DAILY omeprazole 20 mg PO DAILY rosuvastatin 5 mg PO DAILY triamcinolone acetonide 0.5% 1 appl topical BID Tobacco use date assessed: 11/15/24 Fall risk assessment: No Falls in past year Last assessed Fall Risk: 04/02/25 Dental Screening Dental Screen Date: 05/10/24 HPI HPI Comments History of Present Illness Details History of Present Illness The patient is an 80-year-old male presenting for a physical exam. His past medical history is significant for GERD, Garner's esophagus, hypertension, hypercholesterolemia, chronic kidney disease (CKD), and COPD with a history of smoking. He quit smoking 21 years ago. He was last seen in November after having a COVID-19 infection. For his COPD, the patient follows with a professor of public administration and is prescribed AirDuo 113 mcg, which he uses twice daily, and he also has an albuterol inhaler. He reports good breathing and rinses his mouth after using the inhaler. He follows with a supervisor farm equipment maintenance for chronic kidney disease. His hypertension is managed by the kidney doctor, who prescribed amlodipine-benazepril 5-10 mg. The patient's GERD is controlled with omeprazole 20 mg once daily, and he reports not having had heartburn in about five years. For hypercholesterolemia, he takes rosuvastatin 5 mg. His other medications and supplements include aspirin 81 mg, vitamin D, a garlic pill, magnesium for leg cramps, multivitamins, and fish oil. He has completed his colonoscopies. He reports no new surgeries or diagnoses since his last visit. He stopped drinking alcohol about a year ago and denies any recreational drug use. Health Maintenance - Screening: The patient has completed c olonoscopies and requests a repeat carotid artery ultrasound to re-evaluate plaque. - Vaccinations: Immunizations are up-to- date, including for RSV, shingles, tetanus, pneumonia, COVID-19, and influenza. - Vision: He is due for a vision check. - Lifestyle: The patient reports being a ctive, working daily, maintaining a healthy diet, and drinking water frequently. - Substance Use: He quit smoking 21 year s ago and quit drinking alcohol about a year ago. Social History - Substance Use: The patient reports makenzie tting alcohol about a year ago and denies current use. - Tobacco Use: He quit smoking 21 years ago and denies any current tobacco use. - Illicit Drug Use: The patient denies a ny recreational drug use. - Occupation and Activity: The patient i s not retired, goes to work every day, and is physically active. - Diet: He reports eating a healthy diet and drinking water frequently. Results - Lab results from March 2023: - CBC: Hemoglobin 13.9 g/dL, Hematocrit 41.8%, indicating mild anemia. - Comprehensive Metabolic Panel: Electro lytes were normal. - Renal function: Creatinine 1.28 mg/dL, GFR 54 mL/min/1.73 m??. - Glucose and Liver function: Normal. - Lipid panel: LDL cholesterol 59 mg/dL. - Other labs: Vitamin B12, folic acid, a nd thyroid studies were all within normal limits. - Urinalysis: Normal. [facility] Medical History COPD (chronic obstructive pulmonary disease) History of smoking at least 1 pack per day for at least 30 years COPD (chronic obstructive pulmonary disease) Wheezing Acute bronchitis GERD (gastroesophageal reflux disease) Erectile dysfunction History of ETOH abuse Barretts esophagus Hyperlipidemia Hypertension Surgical History History of cranial surgery History of appendectomy History of tonsillectomy History of umbilical hernia repair History of vasectomy History of left inguinal hernia repair History of esophagogastroduodenoscopy (EGD) Hx of colonoscopy Family History Father No problems noted. Mother Cancer Social History Housing: House Alcohol intake: current Alcohol intake frequency: a few times a month Alcohol type: beer Comment: once Q 6 months 1 beer Patient Tobacco Use Status: Former Tobacco user Tobacco use type: Cigarette Years Smoked: [id number] e-Cigarette/Vaping Use: Never Used Second Hand Smoke Exposure: Yes service: No Current occupational status: retired Cognitive needs: No Hearing needs: No Vision needs: Yes (glasses) Questionnaire PHQ-9 Over the last 2 weeks, how often have you been bothered by any of the following problems? 1. Little interest or pleasure in doing things: not at all 2. Feeling down, depressed, or hopeless: not at all 3. Trouble falling or staying asleep, or sleeping too much: not at all 4. Feeling tired or having little energy: not at all 5. Poor appetite or overeating: not at all 6. Feeling bad about yourself - or that you are a failure or have let yourself or your family down: not at all 7. Trouble concentrating on things, such as reading the newspaper or watching television: not at all 8. Moving or speaking so slowly that other people could have noticed. Or the opposite - being so fidgety or restless that you have been moving around a lot more than usual: not at all 9. Thoughts that you would be better off or of hurting yourself in some way: not at all Total score: 0 Depression Screening Interpretation: Negative Depression Screening Done: Yes Source: Developed by Drs. Deandre Toth, Anabel He, Eligio Cruz and colleagues, with an educational lamonte from [employer]. Thrive Questionnaire Date Thrive assessed: 03/26/25 I am a: Patient What is your living situation today?: I have a steady place to live Within the past 12 months, did the food you bought not last and you didn't have the money to get more?: Never true Within the past 12 months, did you worry whether your food would run out before you got money to buy more?: Never true Do you have trouble paying for medicines?: Yes Do you have trouble getting transportation to medical appointments?: No Do you have trouble paying your heating and electricity bill?: No Do you have trouble taking care of your child, family member or friend?: No Do you have trouble with day-to-day activities such as bathing, preparing meals, shopping, managing finances, etc.?: No Are you currently unemployed and looking for a job?: No Are you interested in more education?: No Please select the resources that you would like help with: None Currently or been in a relationship where the following occur: I choose not to answer THRIVE Score: 0 AUDIT C Alcohol Use Questionnaire (AUDIT-C) 1. How often do you have a drink containing alcohol?: Never 3. How often do you have six or more drinks on one occasion?: Never Total Score: 0 CORINNE-7 AMB Questionnaire CORINNE-7 Date CORINNE - 7 assessed: 05/10/24 Feeling nervous, anxious, or on edge: 0 = Not at all Not being able to stop or control worryin = Not at all Worrying too much about different things: 0 = Not at all Trouble relaxin = Not at all Being so restless that it is hard to sit still: 0 = Not at all Becoming easily annoyed or irritable: 3 = Nearly every day Feeling afraid as if something awful might happen: 0 = Not at all Total CORINNE-7 score (0-4 normal; 5-9 mild; 10-14 moderate; 15-21 severe): 3 Source: Developed by Drs. Deandre Toth, Anabel He, Eligio Cruz and colleagues, with an educational lamonte from [employer]. Review of Systems Narrative Review of Systems - Constitutional: Denies fever. - HEENT: Reports good hearing. - Cardiovascular: Denies syncope, dizziness, chest heaviness, or chest discomfort. - Respiratory: Denies waking up short of breath. - Gastrointestinal: Reports good bowel movements. - Genitourinary: Reports nocturia once per night. - Neurological: Denies loss of consciousness or dizziness. Const Denies poor appetite and Denies weakness Eyes Denies no additional complaints ENT Reports Normal hearing present, Denies dizziness, Denies nasal congestion, Denies tinnitus and Denies sore throat Card Denies chest pain, Denies syncope, Denies rapid heart rate and Denies dyspnea Resp Denies cough and Denies dyspnea GI Denies change in stool character, Reports constipation, Denies diarrhea, Denies nausea and Denies vomiting Denies dysuria and Denies urinary frequency Neuro Reports Normal hearing present, Denies confusion, Denies dizziness, Denies syncope and Denies weakness Psych Denies confusion Physical exam (Primary Care) Vital Signs: Last Vital Signs Pulse 68 04/02/25 11:21 BP 136/62 04/02/25 11:21 Pulse Ox 95 04/02/25 11:21 Oxygen Delivery Method Room Air 04/02/25 11:21 BMI result Body Mass Index 26.2 Tobacco/Smoking Status: Tobacco use Status Tobacco use date assessed 11/15/24 04/02/25 11:26 Patient Tobacco Use Status Former Tobacco user 04/02/25 11:26 Tobacco use type Cigarette 04/02/25 11:26 e-Cigarette/Vaping Use Never Used 04/02/25 11:26 PHQ-9: PHQ-9 Score PHQ-9: Total score 0 04/02/25 11:28 Depression Screening Interpretation: Negative Thrive Assessment: Date of Thrive Assessment Date Thrive assessed 03/26/25 04/02/25 11:26 Currently or been in a relationship where the following occur: I choose not to answer Narrative Physical Exam General: Cooperative, healthy appearing, comfortable, no acute distress and well developed Orientation: Patient oriented x3 Limitations: No limitations Head: Normal to inspection Ears: Hearing grossly normal bilaterally Nose: Normal external nose present Face and sinus: Normal facial exam Eyes: Appearance normal, both eyes and all related structures Neck: Normal visual inspection and Yes full ROM Respiratory: Normal respiratory effort and able to speak in complete sentences. Clear to auscultation bilaterally Cardiovascular: Regular rate and rhythm. Normal S1 and S2 GI: Normal to inspection. Soft to palpation and nontender Skin: No rashes or lesions noted Neuro: Patient oriented x3 Extremities: Normal to inspection Const General: No confusion Orientation/consciousness: No confusion HENMT Head: Yes normocephalic Ears: external ears normal and TM's normal bilaterally Face and sinus: Yes normal facial exam Mouth: moist mucous membranes Throat: Yes tonsils normal Eyes Conjunctivae: conjunctivae normal Pupils: Equal, round and reactive pupils present and Pupil accommodation reflex normal Direct Ophthalmoscopy: normal light reflex Neck Neck: No lymphadenopathy Thyroid: Thyroid normal Chest Chest palpation & inspection: normal inspection of the chest Resp Effort & Inspection: normal respiratory effort and no audible wheezes Auscultation: clear to auscultation bilaterally, no crackles, no wheezes and lung sounds not diminished Cardio Rate: regular rate Rhythm: regular rhythm Peripheral pulses: radial pulses present and dorsalis pedis present GI Other: guaiac negative , prostate big Palpation (GI): no masses Auscultation: normal bowel sounds and normoactive bowel sounds Male General Exam: Yes normal external exam Skin General skin exam: no rashes or lesions noted Rashes: no rashes Neuro General: No confusion Cranial nerves: Yes Equal, round and reactive pupils present and Yes Normal hearing present Cognition (Neuro): normal cognition Gait exam (Neuro): Normal gait present Motor exam (neuro): 5/5 motor strength present throughout Deep tendon reflexes (DTR's): Right brachioradialis reflex intensity grade: 2+, Left brachioradialis reflex intensity grade: 2+, Right patellar reflex intensity grade: 2+ and Left patellar reflex intensity grade: 2+ Extrem General: No edema Coding Level of Care Code Est Pt Prev Care >65y(69698) Diagnoses Annual physical exam Z00. Pulmonary emphysema, unspecified emphysema type J43.9 COPD type: emphysema Emphysema type: unspecified Anemia, unspecified type D64.9 Anemia type: unspecified type Benign prostatic hyperplasia without lower urinary tract symptoms N40.0 Lower urinary tract symptom presence: symptoms absent CKD stage 3a, GFR 45-59 ml/min N18.31 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 K22.70 Garner's esophagus type: without dysplasia Pure hypercholesterolemia E78.00 Hyperlipidemia type: pure hypercholesterolemia Essential hypertension I10 Hypertension type: essential hypertension Bilateral carotid artery stenosis I65.23 Laterality: bilateral Assessment & Plan Assessment & Plan (1) Annual physical exam: Code(s): Z00.00 - Encounter for general adult medical examination without abnormal findings Category: Medical Plan: Patient is advised to eat healthy, keep well hydrated, keep active and have adequate sleep. (2) COPD (chronic obstructive pulmonary disease): Comment: As per Pulmonary function test he has Moderately severe obstructive airway disorder. Remains well controlled and stable with AirDuo, 113-14 1 inhalation b.i.d. Code(s): J44.9 - Chronic obstructive pulmonary disease, unspecified Category: Medical Qualifiers: COPD type: emphysema Emphysema type: unspecified Qualified Code(s): J43.9 - Emphysema, unspecified Plan: Patient follows up with Pulmonary on AirDuo (3) Anemia: Code(s): D64.9 - Anemia, unspecified Category: Medical Qualifiers: Anemia type: unspecified type Qualified Code(s): D64.9 - Anemia, unspecified Plan: Mild and continue to monitor (4) BPH (benign prostatic hyperplasia): Code(s): N40.0 - Benign prostatic hyperplasia without lower urinary tract symptoms Category: Medical Qualifiers: Lower urinary tract symptom presence: symptoms absent Qualified Code(s): N40.0 - Benign prostatic hyperplasia without lower urinary tract symptoms Plan: Stable (5) CKD stage 3a, GFR 45-59 ml/min: Code(s): N18.31 - Chronic kidney disease, stage 3a Category: Medical Plan: Stable, keep well hydrated avoid NSAIDs (6) Garner's esophagus: Code(s): K22.70 - 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 Category: Medical Qualifiers: Garner's esophagus type: without dysplasia Qualified Code(s): K22.70 - 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 Plan: Avoid the foods that causes that usually spicy foods, tomato products, juices, coffee, soda and foods that your sensitive to. After eating do not lie down, allow 3-4 hours before in lie down. And keep the head of bed above 30 degrees to avoid the acid from going up. (7) Hyperlipidemia: Code(s): E78.5 - Hyperlipidemia, unspecified Category: Medical Qualifiers: Hyperlipidemia type: pure hypercholesterolemia Qualified Code(s): E78.00 - Pure hypercholesterolemia, unspecified Plan: Avoid fried foods, chicken skin, eggs, butter margarine, pastries and meat. Be it pork or beef they have a lot of cholesterol LDL goal of less than 130 and triglyceride of less than 150 (8) Hypertension: Code(s): I10 - Essential (primary) hypertension Category: Medical Qualifiers: Hypertension type: essential hypertension Qualified Code(s): I10 - Essential (primary) hypertension Plan: Continue with blood pressure medication. Decrease salt intake and exercise on amlodipine benazepril (9) Carotid stenosis: Comment: 2021, 01/21/2024 Code(s): I65.29 - Occlusion and stenosis of unspecified carotid artery Category: Medical Qualifiers: Laterality: bilateral Qualified Code(s): I65.23 - Occlusion and stenosis of bilateral carotid arteries Plan Plan Patient was informed and verbally consented to the use of an ambient scribe for clinic note documentation during this visit. 1. Wellness And Preventive Care The patient is up to date on his vaccinations, including RSV, flu, COVID-19, tetanus, and shingles. An order will be placed for a carotid ultrasound as requested by the patient to reassess for stenosis. We discussed the importance of fall prevention. Follow-up is recommended in six months. 2. Chronic Obstructive Pulmonary Disease The patient's COPD is stable, and he reports breathing well on his current regimen of AirDuo 113 mcg twice a day with albuterol as needed. He will continue his current medications and follow up with his professor of public administration as scheduled. We discussed that various combination inhalers (e.g., Advair, Breo, Symbicort) are in the same class and that insurance often dictates which is prescribed. 3. Chronic Kidney Disease The patient's CKD is stable, with a recent creatinine of 1.28 and GFR of 54. He will continue to follow up with his supervisor farm equipment maintenance. He was advised to remain well-hydrated and avoid NSAIDs. We clarified that blood work ordered by his supervisor farm equipment maintenance does not need to be repeated for primary care. 4. Hypertension His blood pressure is well-controlled on amlodipine-benazepril. We noted trace leg swelling, a known side effect of amlodipine, and will continue to monitor. If the swelling worsens, we will consider changing the medication. 5. Hypercholesterolemia His cholesterol is well-controlled, with an LDL of 59, which is below the goal of less than 130. He will continue taking rosuvastatin 5 mg, and a 90-day refill will be provided. 6. Mild Anemia A very mild anemia was noted on his recent labs with a hemoglobin of 13.9, which is not clinically concerning at this time. The plan is to continue to monitor. 7. Benign Prostatic Hyperplasia The patient has a known history of an enlarged prostate, which was confirmed on digital rectal exam. He is currently asymptomatic aside from waking once per night to urinate. He was instructed to report if he experiences worsening urinary symptoms, such as increased frequency to 4-5 times per night or a sensation of incomplete emptying. 8. Gastroesophageal Reflux Disease The patient's GERD is well-controlled with omeprazole 20 mg daily. He denies any heartburn. A 90-day refill for omeprazole will be sent to his pharmacy. Discussion Notes I reviewed the patient's recent lab results with him, explaining that the mild a nemia with a hemoglobin of 13.9 is not concerning and his kidney function remains stable with a GFR of 54. I highlighted that his bad cholesterol (LDL) is very well-controlled at 59. We discussed his request for a repeat carotid artery ultrasound due to a history of some plaque, and I placed an order for the test. I reviewed his medications and confirmed he is taking AirDuo, not Dulera, and refilled his omeprazole and rosuvastatin for 90 days. I explained that the mild swelling in one leg is a known side effect of amlodipine and advised him to monitor it. Following the digital rectal exam, I informed him that his prostate is enlarged but that it only becomes a problem if he develops worsening urinary symptoms, such as urinating 4-5 times a night. I also clarified that for his COPD, many combination inhalers have similar mechanisms and that prescription choice is often dictated by insurance coverage. I emphasized the importance of staying active and being cautious to prevent falls. We addressed the issue of duplicate lab orders, agreeing that one set of blood tests should be sufficient for both his nephrology and primary care follow-ups. I recommended he return for a follow-up visit in six months. Patient Instructions - Please schedule and complete the carotid artery (neck artery) ultrasound that was ordered for you. - Continue to take your current medications as prescribed. - We have sent 90-day refills for your omeprazole (for reflux) and rosuvastatin (for cholesterol) to your pharmacy. - Watch the swelling in your leg. - Continue to drink plenty of water and avoid using NSAID medications like ibuprofen or naproxen to protect your kidneys. - You do not need to have separate blood tests done for our office if you have already had them done for your kidney doctor. - Let us know if you start to have problems urinating, such as having to go 4-5 times a night or feeling like you can't empty your bladder completely. - Continue your healthy diet and stay active, but be careful to avoid falls, especially in icy weather. - Please schedule a follow-up appointment in six months. Orders: Orders US carotid duplex BI Today I65.23 - Occlusion and stenosis of bilateral carotid arteries Medications: Refilled rosuvastatin 5 mg PO DAILY 90 tabs 3RF E78.00 - Pure hypercholesterolemia, unspecified omeprazole 20 mg PO DAILY 90 caps 3RF E78.00 - Pure hypercholesterolemia, unspecified Discontinued fluticasone propion-salmeterol 250-50 mcg/dose (Advair Diskus) Discontinued Reason: No Longer Medically Relevant 1 inh inhalation BID 30 days 60 ea 4RF
[2025-04-02 11:21] VITALS: BP 136/62; PULSE 68; O2SAT 95; BMI 26.2
--- OUTSIDE RECORDS SUMMARY | 2025-04-02 12:53 | XMS_ITS | Clinical Summary ---
Author Organization [facility], Address [address] [place] [address] [place] [address] Phone Care Team Providers Care Forge Shop Machine Repairer Name Role Phone Yo Waggoner MD Primary Care Provider [phone] Social History Tobacco Use Types Packs/Day Years [...] patient's age to complete this topic Insurance [facility] Medicare Care Teams Forge Shop Machine Repairer Relationship Specialty Start Date End Date Yo Waggoner MD [facility] [place] [address] [place], [place] PCP - General Internal Medicine 04/08/24
--- OUTSIDE RECORDS SUMMARY | 2025-04-02 12:53 | XMS_ITS | Encounter Summary ---
Author Organization [facility] Address [address] [place] [address] Phone Care Team Providers Care Rubber Goods Cutter Finisher Name Role Phone Yo Waggoner MD Primary Care Provider [phone] Encounter Details Date Type Department Care Team (Late st Contact Info) Description 04/08/2024 Documentation Only [facility], [address] [place] [address] Renee Lao [place] [address] [place] [address] Social History Tobacco Use Types [...] on filedocumented in this encounter Care Teams Rubber Goods Cutter Finisher Relationship Specialty Start Date End Date Yo Waggoner MD [facility] [address] [place], [place] PCP - General Internal Medicine 04/08/24 documented as of this encounter
--- OUTSIDE RECORDS SUMMARY | 2025-04-02 12:53 | XMS_ITS | Encounter Summary ---
Author Organization [facility] Address [address] [place] [address] Phone Care Team Providers Care Setter Cold Rolling Machine Name Role Phone Yo Waggoner MD Primary Care Provider [phone] Encounter Details Date Type Department Care Team (Late st Contact Info) Description 04/12/2024 Documentation Only [facility], [address] [place] [address] Renee Lao [place] [address] [place] [address] Social History Tobacco Use Types [...] on filedocumented in this encounter Care Teams Setter Cold Rolling Machine Relationship Specialty Start Date End Date Yo Waggoner MD [facility] [address] [place], [place] PCP - General Internal Medicine 04/08/24 documented as of this encounter
--- OUTSIDE RECORDS SUMMARY | 2025-04-02 12:54 | XMS_ITS | Patient Health Record ---
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 Section Notes: Nonsmoker since 12/2007; no s ig alcohol--heavy drinker until 1985 Nonsmoker since 12/2007; no s ig alcohol--heavy drinker until 1985 Nonsmoker since 12/2007; no s ig alcohol--heavy drinker until 1985 Problems Problem Type SNOMED Code ICD Code Onset Dates Problem Status W/U Status Risk Notes Problem Screening for malignant neoplasm of colon (007382158) Encounter for screening for malignant neoplasm of colon (Z12.11) Active confirmed Problem History of adenomatous polyp of colon (549367399) History of adenomatous polyp of colon (Z86.010) Active confirmed Problem Gastroesophageal reflux disease (296727614) GERD (gastroesophag eal reflux disease) (K21.9) Active confirmed 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 [address] [place] [address] [phone] JONAH MONTIEL Self - patient is the [...]
== END 2025-04-02 11:55 | disposition home or self-care (01) ==
LOC: HO.HMCH 11:17
PROVIDERS: PCP Internal Medicine; Visit Provider Internal Medicine
DX: Z00.00 Encounter for general adult medical examination without abnormal findings (principal); J43.9 Emphysema, unspecified; N18.31 Chronic kidney disease, stage 3a; D64.9 Anemia, unspecified; N40.0 Benign prostatic hyperplasia without lower urinary tract symptoms; K22.70 Barrett's esophagus without dysplasia; E78.00 Pure hypercholesterolemia, unspecified; I10 Essential (primary) hypertension; I65.23 Occlusion and stenosis of bilateral carotid arteries

== ENCOUNTER → 2025-04-02 11:16 | Outpatient (BNVA) | payer MEDICARE, SELFPAY | PROVIDERS: PCP Internal Medicine; Visit Provider Internal Medicine | DX: Z00.01 Encounter for general adult medical examination with abnormal findings (principal); I12.9 Hypertensive chronic kidney disease with stage 1 through stage 4 chronic kidney disease, or unspecified chronic kidney disease; N18.31 Chronic kidney disease, stage 3a; D64.9 Anemia, unspecified; E78.00 Pure hypercholesterolemia, unspecified; N40.0 Benign prostatic hyperplasia without lower urinary tract symptoms; J43.9 Emphysema, unspecified; K22.70 Barrett's esophagus without dysplasia; I65.23 Occlusion and stenosis of bilateral carotid arteries; Z13.31 Encounter for screening for depression; Z79.82 Long term (current) use of aspirin | CPT/HCPCS: 96127; 99397 ==